=== PATIENT | female | born 1970 | race Caucasian/White ===

== ENCOUNTER → 2016-10-06 | Outpatient (CLI) | payer OTHER ==
[~2016-10-06] MED LIST: ACET-1256 PO; ADVIN50/60 INH; ALBUAER2 INH; BENZ100C84 PO; CITA20TA9 PO; FENO1TAB PO; LISI-461 PO; METF-384 PO; MONT1TAB3 PO; NATE1TAB PO; PRT/20 PO; SYN125 PO; TIOTCAP INH; ZNTT/150 PO; ZTHM250 PO
--- NOTE | 2016-10-07 08:56 | PAP/PSG TECHNICIAN REPORT ---
[facility] Learning Operations Specialist Polysomnogram Report Study name: None Report date: 10/07/2016 Study date: 10/06/2016 Referring Physician: Rajinder KNIGHT M.D. Name: KEKE HUBBARD Interpreting Physician: Halina Knight M.D. Date of : 1970 Learning Operations Specialist: Tyron Rosario RPSGT. Sex: Female Age: 46 StudyType: PSG Weight: 217 lbs 15.25 inches Height: 46 years, Height 5' 6" Neck Circum: BMI: 35.02 Medications: ZANTAC, 150 MG, PRINIVIL 10 MG, SINGULAIR 10 MG, GLUCOPHAGE 1000 MG, ADVAIR DISKUS, VENTOLIN HFA 108 90 BASE, LEVOXYL 125 MCG, VESICARE 10 MG, LOFIBRA 160 MG, CELEXA 20 MG, PROTONIX 40 MG, FLEXERIL 10 MG, ZITHROMAX 250 MG, DELTASONE 20 MG Patient History PATIENT HAS HISTORY OF WITNESSED APNEAS, LOUD SNORING, MORNING HEADACHES AND NOCTURIA. ALSO, HISTORY OF EXCESSIVE DAYTIME SLEEPINESS. SHE IS HERE TODAY FOR AN EVALUATION FOR SHAINA. ESS = 15 RM 4 Parameters Monitored NPSG: E1-M2, E2-M1, Fp1-M2, Fp2-M1, F3-M2, F4-M2, F4-M1, C3-M2, C4-M2, C4-M1, O1-M2, O2-M2, O2-M1, T3-M2, T4-M1, P3-M2, P4-M1, CHIN1, CHIN2, HR, EKG, Legs, PFLOW, SNOR, FLOW, CFLOW, Tidal Volume, THOR, ABDO, SpO2, PLTH, CPRESS, ETCO2 Wave, ETCO2, pH Sleep Architecture Sleep Stages Time at Lights Off 9:56:47 PM STAGES Time (min.) TST (%) Time at Lights On 5:01:47 AM Wake 102.5 -- Total Recording Time (TRT) 425.50 min. N1 30.5 9 Total Sleep Period (TSP) 385.0 min. N2 275.0 85 Total Sleep Time (TST) 322.5min. N3 0.0 0 Awake Time 103.0 min. REM 17.0 5 Wake after Sleep Onset 65.0 min. Sleep Efficiency (SE) 76 % Sleep Onset Latency (VLAD) 37.5 min. Number of Stage 1 Shifts None Awakenings 25 Stage Changes 95 Number of REM periods 2 REM 17.0 5 REM Latency 129.0 min. NREM 305.5 95 Body Position Analysis Supine Right Left Side Prone Vertical Total Sleep Time (min.) 63.1 303.3 0.0 303.28 0.0 0.0 Total Sleep Time (%) 6% 94% 0% 94 0% N/A% Total Sleep Time REM (min.) 0.0 17.0 0.0 None 0.0 0.0 Total Sleep Time NREM (min.) 19.2 286.3 0.0 None 0.0 0.0 Intermittent Wake (min.) 43.9 58.6 0.0 None 0.0 0.0 Total Sleep Period (%) 7% None None None None None Arousals Myoclonus (PLM) * Events Count Index Events Count Index Spontaneous 64 12 Events Awake (PLMW) 220 128.8 Respiratory 141 26.6 Events Asleep w/ Arousal (PLMA) 82 15.3 PLM 78 15 Events Asleep w/o Arousal (PLMS) 476 88.6 Snoring 16 3 Total Asleep 558 103.8 Total 298 55 Total 778 110 Respiratory Analysis * CA OA MA CH H RERA Total Count 0 0 0 0 167 46 167 Index 0.0 0.0 0.0 0 31.1 9 39.6 Mean Duration 0.0 0.0 0.0 0.00 17.8 14.3 17.1 Longest Duration 0.0 0.0 0.0 0.00 0.0 20.1 42.4 Respiratory Event Summary Total Supine ~Supine Right Left Prone REM NREM Apneas Count 0 0 0 0 N/A N/A 0 0 Index 0.0 0 0 0.0 N/A N/A 0 0 Hypopneas (4% Desat) Count 167 1 166 166 N/A N/A 10 157 Index 31.1 3.1 33 32.8 N/A N/A 35.3 30.8 Apneas & All Hypopneas Count 167 1 166 166 N/A N/A 10 157 Index 31.1 3 33 33 N/A N/A 35.3 30.8 Respiratory Events (Traveling Construction Superintendent+All Hyp+RERA) Count 167 2 211 211 N/A N/A 10 157 Index 39.6 6 42 41.7 N/A N/A 35.3 39.9 Respiratory Related Arousal Count 141 2 142 142 N/A N/A 4 139 Index 26.6 3 28 28 N/A N/A 14 27 Snoring Analysis Supine Right Left Prone REM NREM Total Snore duration 18.3 min Snores count 20 831 N/A N/A 35 816 851 Snore mean duration 1.3 Sec Snores index 62 164 N/A N/A 123.5 160.3 158.3 TST with snoring (%) 5.7% Desaturation Event Summary: Minimum %SpO2 Event Count Mean/Min/Max Duration(sec.) Desaturation Index % Time In Bed > 90 162 25.6 / 7.0 / 59.8 29.7 79.3 86 - 90 18 35.2 / 12.8 / 61.2 13.6 19.2 81 - 85 0 N/A 0.0 1.5 76 - 80 0 N/A 0.0 0.0 71 - 75 0 N/A 0.0 0.0 66 - 70 0 N/A 0.0 0.0 61 - 65 0 N/A 0.0 0.0 56 - 60 0 N/A 0.0 0.0 51 - 55 0 N/A 0.0 0.0 < 50 0 N/A 0.0 0.0 Total REM NREM Awake <50% 0.0 min. 0.0 min. 0.0 min. 0.0 min. 51 - 60% 0.0 min. 0.0 min. 0.0 min. 0.0 min. 61 - 70% 0.0 min. 0.0 min. 0.0 min. 0.0 min. 71 - 80% 0.0 min. 0.0 min. 0.0 min. 0.0 min. 81 - 90% 85.7 min. 14.4 min. 68.6 min. 2.7 min. 91 - 100% 327.8 min. 2.6 min. 236.9 min. 88.3 min. Average 92 87 92 93 Minimum SpO2 81 81 86 81 Desaturation Event Index 23.7 35.3 30.0 4.7 # Desat. Events below 89% 58 10 46 2 Time(%) with Saturation below 89% 6.2 2.7 3.4 0.1 Time(min.) with Saturation below 89% 25.5 11.0 14.0 0.5 Time (mins) REM (mins) NREM (mins) % of TST SpO2 Below 90% 146 10 N136 14.7 SpO2 Below 88% 30 0 0 4 Heart Rate Analysis Min (bpm) Max (bpm) Average (bpm) Awake 69 113 96 NREM 63 107 91 REM 59 104 88 Overall 59 107 91 Supplemental O2 Values Minimum O2 level: None Value Start Time End Time Learning Operations Specialist Comments Mrs. Hubbard slept in the right and supine positions. No cardiac arrhythmia noted. Leg movements noted. No bruxism noted. Snoring was noted and scored as a 3 on a scale of 1 through 5. (0=no snoring, 5=snoring loud enough to be heard through a closed door or down the jerome way) Mrs. Hubbard awoke to use the restroom 3 times during the night. Mrs. Hubbard stated I did not sleep as well as I do when I am in my own bed. The final report will be interpreted and signed by a sleep physician. The completed physician report will then be placed in the patient medical record. Therapy (cm H2O) 0 TIB (min.) 425.0 TST (min.) 322.5 Sleep Onset (min.) 37.5 REM Onset From Sleep (min.) 129.0 Sleep Efficiency % 76 Wakefulness (%) 24 Wakefulness (min.) 103.0 NREM 1 (%) 9 NREM 1 (min.) 30.5 NREM 2 (%) 85 NREM 2 (min.) 275.0 NREM 3 (%) 0 NREM 3 (min.) 0.0 REM (%) 5 REM (min.) 17.0 # Arousals 298 Arousal Index 55 # Snore 851 Snore Index 158.3 AHI 31.1 AHI Supine 3 AHI Non-Supine 33 NREM AHI 30.8 REM AHI 35.3 RDI 39.6 # Obstructive Apnea 0 # Central Apnea 0 # Mixed Apnea 0 # Hypopneas 167 RERAs 46 Total Respiratory Events 213 Time Below SpO2 89% (min.) 25.0 Mean NREM SpO2 (%) 92 Mean REM SpO2 (%) 87 Mean Sleep SpO2 (%) 92 Min NREM SpO2 (%) 86 Min REM SpO2 (%) 81 Position Supine (min.) 63.1 Position Non-supine (min.) 303.3 LM Index Sleep 103.8 LM Index NREM 107.0 LM Index REM 45.9 Mean Heart Rate (bpm) 91 Min Heart Rate (bpm) 59
--- NOTE | 2016-10-14 14:00 | POLYSOMNOGRAPH REPORT ---
REFERRING PERSON: Dr. Chante Knight. COIL WINDER: Tyron Rosario. Ms. Santacruz is a 46-year-old female sent for baseline sleep study. She has a history of witnessed apneas, loud snoring, morning headaches and nocturia. She has some excessive daytime sleepiness as well. Her [place] sleepiness scale score on the evening of this study is 15. BMI is 35.02. Following the technical and digital specifications of the [place] [employer] (AASM) a standard diagnostic polysomnogram was performed monitoring EEG, EOG, EMG (chin and leg deviations), oxygen saturation, body position, digital video, respiratory effort and airflow. The sleep Stage and event scoring was based on the AASM Manual for the Scoring of Sleep and Associated Events 2007 edition. Apneas are defined as a drop in the peak thermal sensor excursion by >90% of baseline for at least 10 seconds. Hypopneas were scored using the 4% oxygen desaturation rule (4A-[employer]) and a decrease in the nasal pressure excursions by >30% of baseline for at least 10 seconds. Respiratory effort-related arousal (RERA's) is defined as a sequence of breaths lasting at least 10 seconds characterized by increasing respiratory effort or flattening of the nasal pressure waveform leading to an arousal from sleep when the sequence of breaths does not meet criteria for an apnea or hypopnea. Apnea Hypopnea index (AHI) is defined as the number of apneas and hypopneas occurring in an hour of sleep. Respiratory disturbance index (RDI) is defined as the number of apneas, hypopneas, and RERA's occurring in an hour of sleep. Ms. Santacruz's total sleep period time was 385 minutes. Total sleep time was 322.5 minutes. Sleep efficiency was 76%. Latency to sleep onset was 37.5 minutes with wake after sleep onset of 65 minutes. Total non-REM sleep time was 305.5 minutes. She spent 9% of that time in N1 sleep, 85% in N2 sleep and no time in N3 sleep. This is abnormal non-REM sleep architecture with a propensity for superficial sleep. REM latency was 129 minutes. Total REM sleep time was 17 minutes or 5% of total sleep time. There were 298 arousals from sleep. 64 of these arousals were spontaneous, 141 due to respiratory events, 78 due to periodic limb movements of sleep and 16 were due to snoring. There were 558 periodic limb movements noted on this test. Limb movement index was 103.8 with limb movement with arousal index of 15.3. There were no central, obstructive or mixed apneas on this test. However, there were 167 hypopnea and 46 RERA. Apnea-hypopnea index was 31.1 and RDI was 39.6. This is consistent with severe sleep apnea. 851 one snoring events were recorded. Total sleep time with snoring was 5.7%. Mean saturation was 92% with desaturations to 81%. Saturations were less than 89% for 25.5 minutes of recorded time. There was no cardiac ectopy noted on this study. Ms. Santacruz's heart rate ranged from a low of 59 beats per minute to a high of 107 beats per minute. IMPRESSION AND PLAN: 46-year-old female with evidence of severe sleep apnea and significant nocturnal hypoxemia on this sleep study. 1. This patient would likely benefit from positive airway pressure therapy. She should return to sleep lab for a full night titration and then based on those results be started on equipment at home. A download from her machine can be reviewed in 1 month both to check compliance as well as AHI and further pressure adjustments can occur at that time. This should treat the patient's apnea, hypoxemia as well as some snoring. 2. Should this patient be unwilling or unable to tolerate CPAP therapy, she could be referred to ear, nose and throat or oral surgery/dental medicine (if appropriate) to discuss alternative treatments for sleep disorder breathing.
== END | disposition home or self-care (01) ==
LOC: C.NEUR 21:00
PROVIDERS: ATTEND Family Medicine
DX: G47.10 Hypersomnia, unspecified (principal); R06.83 Snoring; G47.33 Obstructive sleep apnea (adult) (pediatric)

== ENCOUNTER → 2017-06-27 | Day surgery (SDC) | payer OTHER ==
[2017-06-19 16:01] VITALS: Ht 165.1 cm; Wt 100.9 kg
[~2017-06-27] VITALS: Ht 165.1 cm; Wt 100.9 kg
[~2017-06-27] MED LIST changes: -ALBUAER2 INH; +ATOR-22 PO; -BENZ100C84 PO; +CYCL10TA6 PO; +FENTANYL CITRATE INJ 50 MCG/1 ML 2 ML VIAL ONE; +GLIM4TAB PO; +LEVO150T9 PO; +LIDOCAINE HCL 2% 2 ML VIAL (20MG/ML) ONE; +ONDANSETRON INJ 2 MG/ML 2 ML VIAL IV PRN; +PANT40TA PO; +PROPOFOL IV EMULSION 10 MG/ML 20 ML VIAL ONE; -PRT/20 PO; +RANI150T85 PO; +SPRIN/30 INH; -SYN125 PO; -TIOTCAP INH; +VNTHFA/IN INH; -ZNTT/150 PO; -ZTHM250 PO
--- NOTE | 2017-06-27 08:40 | Endo History and Physical ---
History & Physical Date of Service: June 27, 2017. Chief Complaint: Abdominal pain Referring Physician: History of Present Illness Patient with intermittent right upper quadrant discomfort. She presents for upper endoscopy today. There is no difficulties with swallowing or pain with swallowing. Past Medical History Diabetes, Endocrine Disorder, Asthma, Reflux, Hypertension, COPD, Thyroid Disease Past Surgical History Hx Cardiac Surgery: No Hx Internal Defibrillator: No Hx Pacemaker: No Hx Abdominal Surgery: Yes (TUBAL) Hx of Implantable Prosthesis: No Hx Post-Op Nausea and Vomiting: No Hx Cancer Surgery: No Hx Thoracic Surgery: No Hx Orthopedic: Yes (carpal tunnel release, R ARTH) Hx Urinary Tract Surgery: No Social History Smoking Status: Former Smoker Hx Substance Use: No Hx Alcohol Use: No Allergies Coded Allergies: Sulfa Antibiotics (Verified Allergy, Unknown, RASH,SWELLING, 06/19/17) Current Medications Reported Home Medications Medications Dose Route/Sig Max Daily Dose Days Date Category Dose Instructions Ventolin Hfa (Albuterol) 200 Puffs/95262 Mcg Aers 2-4 Puffs INH Q4 PRN 06/19/17 Reported Spiriva Handihaler (Tiotropium [place]) 30 Puff/540 Mcg Aerp 1 Cap INH DAILY 30 06/19/17 Reported Amaryl (Glimepiride) 4 Mg Tab 1 Tab PO DAILY 30 06/19/17 Reported Flexeril (Cyclobenzaprine Hcl) 10 Mg Tab 1 Tab PO TID 30 06/19/17 Reported Lipitor (Atorvastatin Calcium) 20 Mg Tab 1 Tab PO DAILY 30 06/19/17 Reported Levothyroxine Sodium 150 Mcg Tab 1 Tab PO DAILY 30 06/19/17 Reported Protonix (Pantoprazole Sodium) 40 Mg Tab 1 Tab PO BID 30 06/19/17 Reported Celexa (Citalopram Hydrobromide) 20 Mg Tab 1 Tab PO DAILY 30 05/04/15 Reported Tylenol (Acetaminophen) 500 Mg Tab 1,000 Mg PO DIRECTED 05/04/15 Reported Zantac (Ranitidine HCl) 150 Mg Tab 150 Mg PO BID 05/04/15 Reported Nateglinide 120 Mg Tab 120 Mg PO AC 10/22/13 Reported Glucophage (Metformin Hcl) 1,000 Mg Tab 1,000 Mg PO BIDM 11/10/12 Reported Zestril (Lisinopril) 10 Mg Tab 10 Mg PO DAILY 11/10/12 Reported Advair Diskus 500/50 60 Dose (Fluticasone Prop/Salmeterol) 1 Ea Aerp 1 Puff INH BID 06/24/12 Reported Singulair (Montelukast Sodium) 10 Mg Tab 10 Mg PO QPM 06/24/12 Reported Tricor (Fenofibrate) 160 Mg Tab 160 Mg PO DAILY 06/24/12 Reported take with meal Vital Signs Weight (Kilograms): 100.91 Height (Feet): 5 Height (Inches): 5 Physical Exam General Appearance: no apparent distress Respiratory/Chest: Auscultation: deminished air movement Cardiovascular: Heart Auscultation: RRR Abdomen: Inspection & Palpation: soft Assessment and Plan Upper endoscopy for evaluation of intermittent right upper quadrant discomfort. We have discussed the risks to include bleeding, infection, perforation pain and need for follow-up studies.
[2017-06-27 09:02] VITALS: PULSE 79; O2SAT 94
[2017-06-27 09:12] VITALS: PULSE 81; O2SAT 95
--- NOTE | 2017-06-27 09:39 | Discharge Instructions ---
Endoscopy Patient Instructions Date / Procedure(s) Performed June 27, 2017. EGD Allergy Information Coded Allergies: Sulfa Antibiotics (Verified Allergy, Unknown, RASH,SWELLING, 06/19/17) Discharge Date / Findings June 27, 2017. Normal esophagus Normal Stomach Normal Duodenum Medication Instructions Stopped Medication(s): last dose Metformin Friday Restart Stopped Medication(s): Reported Home Medications Medications Dose Route/Sig Max Daily Dose Days Date Category Dose Instructions Ventolin Hfa (Albuterol) 200 Puffs/16675 Mcg Aers 2-4 Puffs INH Q4 PRN 06/19/17 Reported Spiriva Handihaler (Tiotropium [place]) 30 Puff/540 Mcg Aerp 1 Cap INH DAILY 30 06/19/17 Reported Amaryl (Glimepiride) 4 Mg Tab 1 Tab PO DAILY 30 06/19/17 Reported Flexeril (Cyclobenzaprine Hcl) 10 Mg Tab 1 Tab PO TID 30 06/19/17 Reported Lipitor (Atorvastatin Calcium) 20 Mg Tab 1 Tab PO DAILY 30 06/19/17 Reported Levothyroxine Sodium 150 Mcg Tab 1 Tab PO DAILY 30 06/19/17 Reported Protonix (Pantoprazole Sodium) 40 Mg Tab 1 Tab PO BID 30 06/19/17 Reported Celexa (Citalopram Hydrobromide) 20 Mg Tab 1 Tab PO DAILY 30 05/04/15 Reported Tylenol (Acetaminophen) 500 Mg Tab 1,000 Mg PO DIRECTED 05/04/15 Reported Zantac (Ranitidine HCl) 150 Mg Tab 150 Mg PO BID 05/04/15 Reported Nateglinide 120 Mg Tab 120 Mg PO AC 10/22/13 Reported Glucophage (Metformin Hcl) 1,000 Mg Tab 1,000 Mg PO BIDM 11/10/12 Reported Zestril (Lisinopril) 10 Mg Tab 10 Mg PO DAILY 11/10/12 Reported Advair Diskus 500/50 60 Dose (Fluticasone Prop/Salmeterol) 1 Ea Aerp 1 Puff INH BID 06/24/12 Reported Singulair (Montelukast Sodium) 10 Mg Tab 10 Mg PO QPM 06/24/12 Reported Tricor (Fenofibrate) 160 Mg Tab 160 Mg PO DAILY 06/24/12 Reported take with meal Provider Instructions Activity Restrictions - No exercising or heavy lifting for 24 hours. - Do not drink alcohol the day of the procedure. - Do not drive a car or operate machinery until the day after the procedure. - Do not make any important decisions or sign important papers in 24 hours after the procedure. Following Day: - Return to full activity which may include returning to work/school. Diet Start your diet with liquids and light foods (jello, soup, juice, toast). Then eat your usual diet if not nauseated. Treatment For Common After Affects For mild abdominal pain, bloating, or excessive gas: - Rest - Eat lightly - Lie on right side Follow-Up Information Follow-up with Dr. Sam Valdovinos to discuss medications No obvious cause of symptoms seen today. Symptoms are related to medication such as metformin or Celexa Anesthesia Information What You Should Know You have had a procedure that required some medicine to reduce anxiety and discomfort. This treatment is called moderate sedation. After receiving the treatment, you may be sleepy, but you will be able to breathe on your own. The effects of the treatment may last for several hours. Follow these instructions along with Activity/Diet recommendations noted above: * Do NOT do anything where dizziness or clumsiness would be dangerous. * Rest quietly at home today, then you can be up and about tomorrow. * Have a responsible person stay with you the rest of today. * You may have had an I.V. today. If so, you may take the dressing off later today. Recommendations Call your doctor if: * Trouble breathing * Continuous vomiting for more than 24 hours * Temperature above 101 degrees * Severe abdominal pain or bloating * Pain not relieved by pain medicine ordered * There is increased drainage or redness from any incision * A large amount of rectal bleeding greater than 2-3 tablespoons. (If you had a polyp/s removed or have hemorrhoids, a small amount of blood - from the rectum is to be expected.) * You have any unanswered questions or concerns. IN THE EVENT OF A SERIOUS EMERGENCY, GO TO THE NEAREST EMERGENCY ROOM Your discharge instructions were prepared by provider Khoa Alejandra. Patient Instructions Signature Page Lauren Santacruz Patient (or Guardian) Signature/Date: I have read and understand the instructions given to me by my caregivers. Caregiver/RN/Doctor Signature/Date: The above-named patient and/or guardian has received patient instructions on this date. + Original Patient Signature Page (only) stays with chart. Please make copy for patient.
--- NOTE | 2017-06-27 09:41 | GI REPORT ---
Patient Name: Lauren Santacruz Procedure Date: 06/27/2017 9:23 AM Date of : 1970 Admit Type: Outpatient Age: 47 Gender: Female Attending MD: Khoa Alejandra DO Procedure: Upper GI endoscopy Providers: Khoa Alejandra DO Referring MD: Joan Prater NP Indications: Epigastric abdominal pain, Abdominal pain in the right upper quadrant Medicines: Monitored Anesthesia Care Complications: No immediate complications. Estimated blood loss: Minimal. Estimated Blood Loss: Estimated blood loss was minimal. Procedure: Pre-Anesthesia Assessment: - Prior to the procedure, a History and Physical was performed, and patient medications, allergies and sensitivities were reviewed. The patient's tolerance of previous anesthesia was reviewed. - The risks and benefits of the procedure and the sedation options and risks were discussed with the patient. All questions were answered and informed consent was obtained. - Patient identification and proposed procedure were verified prior to the procedure by the physician, the nurse and the electrical sign wirer. The procedure was verified in the procedure room. - Pre-procedure physical examination revealed no contraindications to sedation. - ASA Grade Assessment: III - A patient with severe systemic disease. - After reviewing the risks and benefits, the patient was deemed in satisfactory condition to undergo the procedure. - The anesthesia plan was to use monitored anesthesia care (MAC). - Immediately prior to administration of medications, the patient was re-assessed for adequacy to receive sedatives. - The heart rate, respiratory rate, oxygen saturations, blood pressure, adequacy of pulmonary ventilation, and response to care were monitored throughout the procedure. - The physical status of the patient was re-assessed after the procedure. After obtaining informed consent, the endoscope was passed under direct vision. Throughout the procedure, the patient's blood pressure, pulse, and oxygen saturations were monitored continuously. The scope was introduced through the mouth, and advanced to the third part of duodenum. The upper GI endoscopy was accomplished without difficulty. The patient tolerated the procedure well. Findings: The examined esophagus was normal. The Z-line was regular and was found 37 cm from the incisors. The entire examined stomach was normal. The examined duodenum was normal. Biopsies for histology were taken with a cold forceps for evaluation of celiac disease. Estimated blood loss was minimal. Impression: - Normal esophagus. - Z-line regular, 37 cm from the incisors. - Normal stomach. - Normal examined duodenum. Biopsied. Recommendation: - Discharge patient to home (ambulatory). - Advance diet as tolerated today. - Await pathology results. - Symptoms could be related to a medication such as Celexa or metformin. Khoa Alejandra D.O. Khoa Alejandra, 06/27/2017 9:41:17 AM This report has been signed electronically. Note Initiated On: 06/27/2017 9:23 AM Number of Addenda: 0 I attest to the content of the Intraoperative Record and orders documented therein, exceptions below {[id number]}
--- NOTE | 2017-06-27 09:53 | Anesthesiology Progress Note ---
Anesthesia Post Op Note Date & Time June 27, 2017 at 09:53 Vital Signs Pain Intensity: 2 Vital Signs Past 12 Hours Date Time Temp Pulse Resp B/P (MAP) Pulse Ox O2 Delivery O2 Flow Rate FiO2 06/27/17 09:40 82 16 119/71 (87) 97 Room Air 06/27/17 09:12 81 16 95 Room Air 06/27/17 09:02 79 16 94 Room Air 06/27/17 08:40 37.1 80 20 114/70 (85) 96 Room Air Notes Mental Status: alert / awake / arousable, participated in evaluation Pt Amnestic to Procedure: Yes Nausea / Vomiting: adequately controlled Pain: adequately controlled Airway Patency, RR, SpO2: stable & adequate BP & HR: stable & adequate Hydration State: stable & adequate Anesthetic Complications: no major complications apparent
[2017-06-27 10:10] VITALS: BP 125/65; PULSE 83; O2SAT 94
== END | disposition home or self-care (01) ==
LOC: C.GI 08:06
PROVIDERS: ATTEND Internal Medicine Gastroenterology
DX: R10.11 Right upper quadrant pain (principal); R10.13 Epigastric pain; E11.9 Type 2 diabetes mellitus without complications; K21.9 Gastro-esophageal reflux disease without esophagitis; I10 Essential (primary) hypertension; J44.9 Chronic obstructive pulmonary disease, unspecified; Z87.891 Personal history of nicotine dependence; Z88.2 Allergy status to sulfonamides; Z79.84 Long term (current) use of oral hypoglycemic drugs; G47.33 Obstructive sleep apnea (adult) (pediatric); E78.5 Hyperlipidemia, unspecified

== ENCOUNTER 2018-05-10 19:04 | Inpatient (IN) ==
[2018-05-10] MEDS ORDERED: ALBUTEROL 0.083% NEBU SOLN 3 ML VIAL NEB STA ×2 (19:15→20:43)
--- NOTE | 2018-05-10 19:41 | XRay Report ---
XR chest 1V portable CLINICAL HISTORY: Sepsis COMPARISON STUDY: 05/04/2015 FINDINGS: The heart is normal in size. There is radiographic evidence of pulmonary emphysema. There a re bilateral reticulonodular airspace opacities, most pronounced within the right midlung zone. The f indings are likely infectious/inflammatory given history of sepsis. Clinical and radiographic follow- up is recommended. IMPRESSION: 1. Pulmonary emphysema 2. Interval development of bilateral reticulonodular opacities, likely infectious/inflammatory given the history of sepsis. Clinical and radiographic follow-up is recommended. Electronically signed by: Mahendra Patten M.D. 05/10/2018 7:39 PM
[2018-05-10 19:42] LABS: Hematocrit (blood only) 32.2 % (37-47); Hemoglobin 10.1 g/dL (12.0-16.0); Mean Corpuscular Hgb Conc 31.4 g/dL (32-36); Mean Corpuscular Volume 76.8 fL (80-100); Mean Platelet Volume 10.5 fL (7.4-10.4); Platelet Count 379 K/uL (130-400); RDW Coefficient of Variation 17.2 % (11.5-14.5); RDW Standard Deviation 49.1 fL (36.4-46.3); Red Blood Count 4.19 M/uL (4.2-5.4); White Blood Count 26.26 K/uL (4.8-10.8)
[2018-05-10] MEDS ORDERED: PIPERACILL/TAZOBAC CONSULT ACTIVE PRN (19:49)
[2018-05-10] MEDS ORDERED: PIPERACILLIN/TAZOBACTAM 4.5 GM/120 ML BAG IV ONE (19:49)
[2018-05-10] MEDS ORDERED: SODIUM CHLORIDE 0.9% 1000ML 1,000 ML IV ONE (19:51)
[2018-05-10 19:53] LABS: INR 1.1 (0.9-1.1); Partial Thromboplastin Ratio 0.9; Partial Thromboplastin Time 24.7 Seconds (21.0-31.0); Prothrombin Time 10.9 Seconds (9.0-12.0)
[2018-05-10 20:00] LABS: Alanine Aminotransferase 25 U/L (12-78); Albumin Level 3.2 gm/dl (3.4-5.0); Aspartate Aminotransferase 18 U/L (15-37); BUN Creatinine Ratio 14.4 (10-20); Blood Urea Nitrogen 14 mg/dl (7-18); Calcium 8.5 mg/dl (8.5-10.1); Carbon Dioxide 26 mmol/L (21-32); Chloride 102 mmol/L (98-107); Creatinine Clr Calc Pharmacy 82.5 ml/min; Est GFR (African American) 82.1; Est GFR (Non-African American) 70.8; Glucose 214 mg/dl (70-99); Potassium 3.7 mmol/L (3.5-5.1); Sodium 135 mmol/L (136-145)
[2018-05-10 20:01] LABS: Basophils # (auto) 0.02 K/uL (0-0.2); Basophils % (auto) 0.1 %; Eosinophils # (auto) 0.07 K/uL (0-0.5); Eosinophils % (auto) 0.3 %; Immature Granulocytes # (auto) 0.12 K/uL (0.00-0.02); Immature Granulocytes % (auto) 0.5 %; Lymphocytes # (auto) 1.93 K/uL (1.2-3.4); Lymphocytes % (auto) 7.3 %; Monocytes # (auto) 2.99 K/uL (0.11-0.59); Monocytes % (auto) 11.4 %; Neutrophils # (auto) 21.13 K/uL (1.4-6.5); Neutrophils % (auto) 80.4 %
[2018-05-10 20:05] LABS: Albumin Globulin Ratio 0.9 (0.9-2); Alkaline Phosphatase 63 U/L (45-117); Bilirubin,Total 0.4 mg/dl (0.2-1); Globulin 3.7 gm/dl (2.5-4.0); Total Protein 6.9 gm/dl (6.4-8.2); Troponin I < 0.015 ng/ml (0-0.045)
[2018-05-10] MEDS ORDERED: ACETAMINOPHEN 325 MG TAB PO STA (20:43)
[2018-05-10] MEDS ORDERED: ALBUTEROL HFA 8 GM INHALER INH PRN (22:51)
[2018-05-10] MEDS ORDERED: NITROGLYCERIN SL 0.4 MG/TAB TAB SL PRN (22:51)
[2018-05-10] MEDS ORDERED: ONDANSETRON INJ 2 MG/ML 2 ML VIAL IV PRN (22:51)
[2018-05-10] MEDS ORDERED: ACETAMINOPHEN 325 MG TAB PO PRN (22:51)
[2018-05-10] MEDS ORDERED: CYCLOBENZAPRINE HCL 10 MG TAB PO PRN (22:51)
[2018-05-10] MEDS ORDERED: POLYETHYLENE (MIRALAX) 17 GM PACK PO PRN (22:51)
[2018-05-10] MEDS ORDERED: PHARMACY GLYCEMIC MGMT CONSULT PRN (23:06)
[2018-05-10] MEDS ORDERED: INSULIN GLARGINE SOLOSTAR 100 UNITS/ML 3 ML PEN SC SCH (23:15)
[2018-05-10] MEDS ORDERED: cefTRIAXone SODIUM 1,000 MG in DEXTROSE 5% 50 ML IV SCH (23:30)
[2018-05-10] MEDS: FENOFIBRATE~ORDER AWAITING ACTION SCH (23:43)
[2018-05-10] MEDS: SODIUM CHLORIDE 0.9% 1000ML 1,000 ML IV SCH (23:43)
[2018-05-10] MEDS: DOXYCYCLINE HYCLATE 100 MG in DEXTROSE 5% 100 ML IV SCH (23:43)
[2018-05-10] MEDS: methylPREDNISolone 40 MG in SYRINGE 0 ML IV SCH (23:45)
[2018-05-10] MEDS: INSULIN ASPART 100 UNITS/ML 3 ML PEN SC SCH (23:48)
--- NOTE | 2018-05-11 01:02 | Emergency Department Note ---
Entered by Jose Armando Leonardo acting as a scribe for Khoa Ruth MD History of Present Illness General Chief complaint: Shortness of Breath/Dyspnea Stated complaint: SOB Time Seen by Provider: 05/10/18 19:05 Source: patient Limitations: no limitations History of Present Illness Provider complaint: Pneumonia/SOB Onset (ago): day(s) Location: chest Pain Consistency: + other (worsening) Quality: + other (SOB/pneumonia) Exacerbated By: + other (Chest pain worsened by breathing) Associated symptoms: + chest pain Treatments prior to arrival: none The patient is a 48 year old female who presents to the Emergency Room with complaints of worsening shortness of breath. The patient states that she began to develop diffuse body aches yesterday and then went to [facility] today. [facility] diagnosed the patient with a right-sided pneumonia and discharged her home with an antibiotic prescription. She did not fill the antibiotic as her pharmacy was closed today. She also complains of a cough that is producing yellow and clear mucous. She does note a history of COPD and asthma and did use her home breathing treatments today. She also received 3 DuoNeb treatments and 125 of SoluMedrol via EMS prior to arrival. The patient does add that she has pain in her right ribs/breast that is worsened by coughing. She has no swelling in her legs. The patient denies any history of blood thinner use or previous blood clots. Home Medications Home Medications Medication Instructions Recorded Confirmed Type albuterol sulfate [Ventolin HFA] 2 - 4 puff INHALATION Q4H PRN 05/10/18 05/10/18 History atorvastatin 20 mg PO DAILY 05/10/18 05/10/18 History citalopram 20 mg PO DAILY 05/10/18 05/10/18 History cyclobenzaprine 10 mg PO DAILY PRN 05/10/18 05/10/18 History dicyclomine 10 mg PO BID 05/10/18 05/10/18 History fenofibrate 160 mg PO QPM 05/10/18 05/10/18 History fluticasone-salmeterol [Advair 1 puff INHALATION BID 05/10/18 05/10/18 History Diskus] glimepiride 4 mg PO QAM 05/10/18 05/10/18 History levothyroxine 137 mcg PO QAM 05/10/18 05/10/18 History lisinopril 10 mg PO QAM 05/10/18 05/10/18 History metformin 1,000 mg PO BID 05/10/18 05/10/18 History montelukast 10 mg PO QPM 05/10/18 05/10/18 History nateglinide 120 mg PO TIDM 05/10/18 05/10/18 History pantoprazole 40 mg PO BID 05/10/18 05/10/18 History ranitidine HCl 150 mg PO BID 05/10/18 05/10/18 History tiotropium bromide [Spiriva 2 puff INHALATION QAM 05/10/18 05/10/18 History Respimat] Allergies Allergy/AdvReac Type Severity Reaction Status Date / Time Sulfa (Sulfonamide Allergy Intermediate RASH,SWELLI Verified 05/10/18 19:45 Antibiotics) NG Past Med/Surg History Medical History COPD (chronic obstructive pulmonary disease) (Chronic) GERD (gastroesophageal reflux disease) (Chronic) HLD (hyperlipidemia) (Chronic) HTN (hypertension) (Chronic) Hypothyroidism (Chronic) DM2 (diabetes mellitus, type 2) (Chronic) Surgical History H/O tubal ligation (Chronic) History of carpal tunnel surgery of right wrist (Chronic) H/O thyroidectomy (Chronic) H/O colonoscopy (Chronic) "polyps x2, hyperplastic tissue repeat at age 50" Social History Preferred Language: Tunisian Communication Ability: Effective Beliefs That Will Affect Care: None Current Living Situation: Spouse Current Living Situation Comment: House Other Information That Helps Us Care for You: No Feels Safe at Home: Yes Safety Concerns: Feels Safe At This Time Smoking Status: Former smoker Hx Alcohol Use: No Hx Substance Use: No Review of Systems See HPI for pertinent positives & negatives. and A total of 10 systems reviewed and were otherwise negative Physical Exam Vital Signs Vital Signs - 24 hr 05/10/18 19:07 05/10/18 19:15 05/10/18 19:24 Temperature Temperature Source Sepsis Recent Fever Within 48 Hours Sepsis New/Unexplained Change in Mental Status Pulse Rate 115 H 114 H 113 H Pulse Rate [Apical] Pulse Rate from SpO2 Sensor 114 H 114 H Pulse Rhythm [Apical] Pulse Strength [Apical] Respiratory Rate 21 14 Respiratory Effort / Characteristics Respiratory Depth Respiratory Pattern Blood Pressure 121/67 Blood Pressure [Left Arm] Blood Pressure Mean 85 Blood Pressure Mean [Left Arm] Blood Pressure Position Blood Pressure Position [Left Arm] Pulse Oximetry 95 95 94 Oxygen Delivery Method Nasal Cannula Nasal Cannula Room Air Oxygen Flow Rate 2 2 05/10/18 19:26 05/10/18 19:30 05/10/18 19:35 Temperature 37.8 C H Temperature Source Oral Sepsis Recent Fever Within 48 Hours Yes Sepsis New/Unexplained Change in Mental Status No Pulse Rate 118 H 116 H Pulse Rate [Apical] 119 H Pulse Rate from SpO2 Sensor 116 H Pulse Rhythm [Apical] Pulse Strength [Apical] Respiratory Rate 24 18 25 H Respiratory Effort / Characteristics Short of Breath Respiratory Depth Normal Respiratory Pattern Regular Blood Pressure 121/67 Blood Pressure [Left Arm] Blood Pressure Mean 85 Blood Pressure Mean [Left Arm] Blood Pressure Position Sitting Blood Pressure Position [Left Arm] Pulse Oximetry 94 98 94 Oxygen Delivery Method Room Air Nasal Cannula Nasal Cannula Oxygen Flow Rate 2 2 05/10/18 19:39 05/10/18 19:45 05/10/18 19:46 Temperature Temperature Source Sepsis Recent Fever Within 48 Hours Sepsis New/Unexplained Change in Mental Status Pulse Rate 114 H 111 H 112 H Pulse Rate [Apical] Pulse Rate from SpO2 Sensor 114 H 111 H 110 H Pulse Rhythm [Apical] Pulse Strength [Apical] Respiratory Rate 19 22 Respiratory Effort / Characteristics Respiratory Depth Respiratory Pattern Blood Pressure 126/73 122/69 Blood Pressure [Left Arm] Blood Pressure Mean 90 86 Blood Pressure Mean [Left Arm] Blood Pressure Position Blood Pressure Position [Left Arm] Pulse Oximetry 95 94 93 Oxygen Delivery Method Nasal Cannula Nasal Cannula Nasal Cannula Oxygen Flow Rate 2 2 2 05/10/18 20:00 05/10/18 20:01 05/10/18 20:15 Temperature Temperature Source Sepsis Recent Fever Within 48 Hours Sepsis New/Unexplained Change in Mental Status Pulse Rate 115 H 114 H 119 H Pulse Rate [Apical] Pulse Rate from SpO2 Sensor 114 H 114 H 118 H Pulse Rhythm [Apical] Pulse Strength [Apical] Respiratory Rate 24 23 24 Respiratory Effort / Characteristics Respiratory Depth Respiratory Pattern Blood Pressure 134/79 Blood Pressure [Left Arm] Blood Pressure Mean 97 Blood Pressure Mean [Left Arm] Blood Pressure Position Blood Pressure Position [Left Arm] Pulse Oximetry 94 94 94 Oxygen Delivery Method Nasal Cannula Nasal Cannula Nasal Cannula Oxygen Flow Rate 2 2 2 05/10/18 20:16 05/10/18 20:30 05/10/18 20:45 Temperature Temperature Source Sepsis Recent Fever Within 48 Hours Sepsis New/Unexplained Change in Mental Status Pulse Rate 119 H 115 H 112 H Pulse Rate [Apical] Pulse Rate from SpO2 Sensor 119 H 116 H 112 H Pulse Rhythm [Apical] Pulse Strength [Apical] Respiratory Rate 25 H 22 20 Respiratory Effort / Characteristics Respiratory Depth Respiratory Pattern Blood Pressure 140/89 Blood Pressure [Left Arm] Blood Pressure Mean 106 Blood Pressure Mean [Left Arm] Blood Pressure Position Blood Pressure Position [Left Arm] Pulse Oximetry 95 95 Oxygen Delivery Method Nasal Cannula Nasal Cannula Oxygen Flow Rate 2 2 05/10/18 20:46 05/10/18 20:47 05/10/18 20:53 Temperature Temperature Source Sepsis Recent Fever Within 48 Hours Sepsis New/Unexplained Change in Mental Status Pulse Rate 113 H 111 H 109 H Pulse Rate [Apical] Pulse Rate from SpO2 Sensor 113 H 111 H 109 H Pulse Rhythm [Apical] Pulse Strength [Apical] Respiratory Rate 25 H 19 21 Respiratory Effort / Characteristics Respiratory Depth Respiratory Pattern Blood Pressure 108/67 Blood Pressure [Left Arm] Blood Pressure Mean 284 80 Blood Pressure Mean [Left Arm] Blood Pressure Position Blood Pressure Position [Left Arm] Pulse Oximetry 96 96 99 Oxygen Delivery Method Nasal Cannula Nasal Cannula Nasal Cannula Oxygen Flow Rate 2 2 2 05/10/18 21:00 05/10/18 21:01 05/10/18 21:25 Temperature Temperature Source Sepsis Recent Fever Within 48 Hours Sepsis New/Unexplained Change in Mental Status Pulse Rate 110 H 115 H 113 H Pulse Rate [Apical] Pulse Rate from SpO2 Sensor 112 H 115 H Pulse Rhythm [Apical] Pulse Strength [Apical] Respiratory Rate 20 17 24 Respiratory Effort / Characteristics Respiratory Depth Respiratory Pattern Blood Pressure 122/88 Blood Pressure [Left Arm] Blood Pressure Mean 99 Blood Pressure Mean [Left Arm] Blood Pressure Position Blood Pressure Position [Left Arm] Pulse Oximetry 99 97 Oxygen Delivery Method Nasal Cannula Nasal Cannula Oxygen Flow Rate 2 2 05/10/18 21:30 05/10/18 21:31 05/10/18 21:45 Temperature Temperature Source Sepsis Recent Fever Within 48 Hours Sepsis New/Unexplained Change in Mental Status Pulse Rate 110 H 111 H 116 H Pulse Rate [Apical] Pulse Rate from SpO2 Sensor 111 H 111 H 112 H Pulse Rhythm [Apical] Pulse Strength [Apical] Respiratory Rate 20 26 H 25 H Respiratory Effort / Characteristics Respiratory Depth Respiratory Pattern Blood Pressure 112/73 Blood Pressure [Left Arm] Blood Pressure Mean 86 Blood Pressure Mean [Left Arm] Blood Pressure Position Blood Pressure Position [Left Arm] Pulse Oximetry 94 94 95 Oxygen Delivery Method Nasal Cannula Nasal Cannula Oxygen Flow Rate 2 2 05/10/18 21:46 05/10/18 22:00 05/10/18 22:01 Temperature Temperature Source Sepsis Recent Fever Within 48 Hours Sepsis New/Unexplained Change in Mental Status Pulse Rate 112 H 109 H 107 H Pulse Rate [Apical] Pulse Rate from SpO2 Sensor 111 H 108 H 107 H Pulse Rhythm [Apical] Pulse Strength [Apical] Respiratory Rate 28 H 23 24 Respiratory Effort / Characteristics Respiratory Depth Respiratory Pattern Blood Pressure 106/48 L Blood Pressure [Left Arm] Blood Pressure Mean 67 Blood Pressure Mean [Left Arm] Blood Pressure Position Blood Pressure Position [Left Arm] Pulse Oximetry 94 94 93 Oxygen Delivery Method Oxygen Flow Rate 05/10/18 22:23 05/10/18 22:52 05/11/18 00:13 Temperature 37.0 C 36.7 C Temperature Source Oral Oral Sepsis Recent Fever Within 48 Hours Sepsis New/Unexplained Change in Mental Status Pulse Rate 95 H Pulse Rate [Apical] 108 H Pulse Rate from SpO2 Sensor Pulse Rhythm [Apical] Regular Pulse Strength [Apical] Normal Respiratory Rate 22 18 Respiratory Effort / Characteristics Non-Labored Spontaneous SOB on Exertion Non-Labored Spontaneous Respiratory Depth Normal Normal Respiratory Pattern Regular Regular Blood Pressure Blood Pressure [Left Arm] 124/77 Blood Pressure Mean Blood Pressure Mean [Left Arm] 92 Blood Pressure Position Blood Pressure Position [Left Arm] Lying Pulse Oximetry 90 95 Oxygen Delivery Method Room Air CPAP Oxygen Flow Rate 05/11/18 00:20 Temperature 36.6 C Temperature Source Oral Sepsis Recent Fever Within 48 Hours Sepsis New/Unexplained Change in Mental Status Pulse Rate Pulse Rate [Apical] 101 H Pulse Rate from SpO2 Sensor Pulse Rhythm [Apical] Regular Pulse Strength [Apical] Normal Respiratory Rate 20 Respiratory Effort / Characteristics Non-Labored Spontaneous Respiratory Depth Normal Respiratory Pattern Blood Pressure Blood Pressure [Left Arm] 139/89 Blood Pressure Mean Blood Pressure Mean [Left Arm] 105 Blood Pressure Position Blood Pressure Position [Left Arm] Lying Pulse Oximetry 96 Oxygen Delivery Method Room Air Oxygen Flow Rate General: Non-ill appearing middle-aged female with wheezing and cough on exam. Appears mildly tachypneic. HEENT: Normal cephalic atraumatic. Pupils are equal round and reactive to light. Extraocular movements are intact. Oropharynx is pink with moist mucous membranes. No swelling of the mouth lips or tongue. Neck: Supple with a midline trachea. No meningeal signs or stiffness, no JVD or bruits. No Stridor. Chest: Wheezes bilaterally. Mildly tachypneic. Tender to the lower anterior right ribs. Heart: regular rate and rhythm. Abdomen: Soft nontender, nondistended without rebound guarding or rigidity. Extremities: No cyanosis clubbing or edema. No calf tenderness or assymetry. Spine/Back. Non tender to palpation. No CVA tenderness Skin: Good turgor without rashes. Neurologic exam: Cranial nerves two through 12 are intact. Motor and sensation are intact and symmetrical throughout. Course 1906: Past medical records reviewed. The patient was evaluated in room D2B, and a complete history and physical examination were performed. 2021: I reviewed the patient's case with Dr. Carmelo Branch [facility] Hospitalist. He will evaluate the patient for further management. 2041: Nursing staff called me to the room at this time. The patient is stating that she cannot breathe currently. there is no evidence of allergic reaction. No rash, no facial swelling, no nausea, vomiting, or diarrhea. Administered Medications Sodium Chloride (Nss 1000ml) 1,000 mls @ 75 mls/hr IV .[id number] [facility] Stop: 05/11/18 22:59 Last Admin: 05/10/18 23:43 Dose: 75 mls/hr Documented by: [id number] Ceftriaxone Sodium 1,000 mg/ (Dextrose) 50 mls @ 100 mls/hr IV Q24H [facility]; Protocol Stop: 05/17/18 23:29 Last Infusion: 05/11/18 00:13 Dose: 0 mls/hr Documented by: [id number] Admin: 05/10/18 23:43 Dose: 100 mls/hr Documented by: [id number] Doxycycline Hyclate 100 mg/ (Dextrose) 110 mls @ 50 mls/hr IV Q12H [facility] Stop: 05/17/18 23:29 Last Admin: 05/10/18 23:43 Dose: 50 mls/hr Documented by: [id number] Methylprednisolone 40 mg/ (Syringe) 0.64 mls @ 1.5 mls/min IV Q8H [facility] Stop: 06/10/18 00:00 Last Admin: 05/10/18 23:45 Dose: 1.5 mls/min Documented by: [id number] Insulin Aspart (Novolog Flexpen) 0 units SC 0330,2315 [facility] Stop: 05/11/18 03:31 Last Admin: 05/10/18 23:48 Dose: 6 units Documented by: [id number] Cosigned by: [id number] Insulin Glargine (Lantus Solostar Pen) 5 units SC BID [facility] Stop: 06/09/18 23:14 Last Admin: 05/10/18 23:46 Dose: 5 units Documented by: [id number] Cosigned by: [id number] Miscellaneous (Order Awaiting Action) 1 ea N/A QS [facility] Stop: 06/10/18 00:00 Last Admin: 05/10/18 23:43 Dose: Not Given Documented by: [id number] Ranitidine HCl (Zantac) 150 mg PO BID [facility] Stop: 06/09/18 22:50 Last Admin: 05/10/18 23:45 Dose: 150 mg Documented by: [id number] Discontinued Medications Acetaminophen (Tylenol) 650 mg PO NOW STA Stop: 05/10/18 20:44 Last Admin: 05/10/18 20:50 Dose: 650 mg Documented by: [id number] Albuterol (Ventolin 0.083% 2.5mg/3ml) 2.5 mg NEB NOW STA Stop: 05/10/18 19:16 Last Admin: 05/10/18 19:22 Dose: 2.5 mg Documented by: [id number] Albuterol (Ventolin 0.083% 2.5mg/3ml) 2.5 mg NEB NOW STA Stop: 05/10/18 20:44 Last Admin: 05/10/18 20:50 Dose: 2.5 mg Documented by: [id number] Piperacillin Sod/Tazobactam Sod (Zosyn) 4.5 gm in 120 mls @ 240 mls/hr IV NOW ONE Stop: 05/10/18 20:18 Last Infusion: 05/10/18 20:54 Dose: 0 mls/hr Documented by: [id number] Admin: 05/10/18 20:03 Dose: 240 mls/hr Documented by: [id number] Sodium Chloride (Nss 1000ml) 1,000 mls @ 999 mls/hr IV .Q1H1M ONE Stop: 05/10/18 20:51 Last Infusion: 05/10/18 21:05 Dose: 0 mls/hr Documented by: [id number] Admin: 05/10/18 20:03 Dose: 999 mls/hr Documented by: [id number] Medical Decision Making Differential Diagnosis Differential Diagnosis includes: Pneumonia, sepsis, COPD exacerbation, cardiac disease, and electrolyte or metabolic abnormality. Medical Records Attestation: I reviewed the patient's medical records. Home Medications Current Medication List: was personally reviewed by la Laboratory Data Attestation: I reviewed the patient's lab results. Result diagrams: 05/10/18 19:28 05/10/18 19:28 Lab Results 05/10/18 05/10/18 05/10/18 Range/Units 19:15 19:28 19:28 WBC 26.26 H (4.8-10.8) K/uL RBC 4.19 L (4.2-5.4) M/uL Hgb 10.1 L (12.0-16.0) g/dL Hct 32.2 L (37-47) % MCV 76.8 L (80-100) fL MCH 24.1 L (25-34) pg MCHC 31.4 L (32-36) g/dL RDW Std Deviation 49.1 H (36.4-46.3) fL RDW Coeff of Dinah 17.2 H (11.5-14.5) % Plt Count 379 (130-400) K/uL MPV 10.5 H (7.4-10.4) fL Immature Gran % (Auto) 0.5 % Neut % (Auto) 80.4 % Lymph % (Auto) 7.3 % Karnes % (Auto) 11.4 % Eos % (Auto) 0.3 % Baso % (Auto) 0.1 % Immature Gran # (Auto) 0.12 H (0.00-0.02) K/uL Neut # (Auto) 21.13 H (1.4-6.5) K/uL Lymph # (Auto) 1.93 (1.2-3.4) K/uL Karnes # (Auto) 2.99 H (0.11-0.59) K/uL Eos # (Auto) 0.07 (0-0.5) K/uL Baso # (Auto) 0.02 (0-0.2) K/uL PT 10.9 (9.0-12.0) Seconds INR 1.1 (0.9-1.1) APTT 24.7 (21.0-31.0) Seconds PTT Ratio 0.9 Sodium (136-145) mmol/L Potassium (3.5-5.1) mmol/L Chloride (98-107) mmol/L Carbon Dioxide (21-32) mmol/L Anion Gap (3-11) BUN (7-18) mg/dl Creatinine (0.6-1.2) mg/dl Est Cr Clr Drug Dosing ml/min Est GFR ( Amer) Est GFR (Non-Af Amer) BUN/Creatinine Ratio (10-20) Glucose (70-99) mg/dl POC Glucose (70-99) Lactate (0.4-2.0) mmol/L Calcium (8.5-10.1) mg/dl Total Bilirubin (0.2-1) mg/dl AST (15-37) U/L ALT (12-78) U/L Alkaline Phosphatase (45-117) U/L Troponin I (0-0.045) ng/ml Total Protein (6.4-8.2) gm/dl Albumin (3.4-5.0) gm/dl Globulin (2.5-4.0) gm/dl Albumin/Globulin Ratio (0.9-2) Influenza Type A Ag Neg for Influ A (Neg) Influenza Type B Ag Neg for Influ B (Neg) 05/10/18 05/10/18 05/10/18 Range/Units 19:28 19:28 23:37 WBC (4.8-10.8) K/uL RBC (4.2-5.4) M/uL Hgb (12.0-16.0) g/dL Hct (37-47) % MCV (80-100) fL MCH (25-34) pg MCHC (32-36) g/dL RDW Std Deviation (36.4-46.3) fL RDW Coeff of Dinah (11.5-14.5) % Plt Count (130-400) K/uL MPV (7.4-10.4) fL Immature Gran % (Auto) % Neut % (Auto) % Lymph % (Auto) % Karnes % (Auto) % Eos % (Auto) % Baso % (Auto) % Immature Gran # (Auto) (0.00-0.02) K/uL Neut # (Auto) (1.4-6.5) K/uL Lymph # (Auto) (1.2-3.4) K/uL Karnes # (Auto) (0.11-0.59) K/uL Eos # (Auto) (0-0.5) K/uL Baso # (Auto) (0-0.2) K/uL PT (9.0-12.0) Seconds INR (0.9-1.1) APTT (21.0-31.0) Seconds PTT Ratio Sodium 135 L (136-145) mmol/L Potassium 3.7 (3.5-5.1) mmol/L Chloride 102 (98-107) mmol/L Carbon Dioxide 26 (21-32) mmol/L Anion Gap 7.0 (3-11) BUN 14 (7-18) mg/dl Creatinine 0.95 (0.6-1.2) mg/dl Est Cr Clr Drug Dosing 82.5 ml/min Est GFR ( Amer) 82.1 Est GFR (Non-Af Amer) 70.8 BUN/Creatinine Ratio 14.4 (10-20) Glucose 214 H (70-99) mg/dl POC Glucose 309 H (70-99) Lactate 1.5 (0.4-2.0) mmol/L Calcium 8.5 (8.5-10.1) mg/dl Total Bilirubin 0.4 (0.2-1) mg/dl AST 18 (15-37) U/L ALT 25 (12-78) U/L Alkaline Phosphatase 63 (45-117) U/L Troponin I < 0.015 (0-0.045) ng/ml Total Protein 6.9 (6.4-8.2) gm/dl Albumin 3.2 L (3.4-5.0) gm/dl Globulin 3.7 (2.5-4.0) gm/dl Albumin/Globulin Ratio 0.9 (0.9-2) Influenza Type A Ag (Neg) Influenza Type B Ag (Neg) Imaging Data Attestation: I personally reviewed and interpreted this imaging study as foll ows: Radiologist's Impression: XR chest 1V portable CLINICAL HISTORY: Sepsis COMPARISON STUDY: 05/04/2015 FINDINGS: The heart is normal in size. There is radiographic evidence of pulmonary emphysema. There are bilateral reticulonodular airspace opacities, most pronounced within the right midlung zone. The findings are likely infectious/inflammatory given history of sepsis. Clinical and radiographic follow-up is recommended. IMPRESSION: 1. Pulmonary emphysema 2. Interval development of bilateral reticulonodular opacities, likely infecti ous/inflammatory given the history of sepsis. Clinical and radiographic follow- up is recommended. Electronically signed by: Mahendra Patten M.D. 05/10/2018 7:39 PM ECG Data Attestation: I personally reviewed and interpreted this ECG as follows: Indication: SOB/dyspnea Rate (beats per minute): 114 Rhythm: sinus tachycardia Findings: + other (Short MT) and + nonspecific-ST abn Comparison ECG Date: from (05/04/2015) Change: no significant change Blood Pressure Blood Pressure Findings: Normal blood pressure MDM Narrative This patient comes in as described above she is brought in by ambulance. She saw urgent care was diagnosed with pneumonia she had a cough and a fever and shortness of breath she does have a significant COPD. On route she received 3 duo nebs as well as IV Solu-Medrol she is feeling better but still wheezing she was given additional nebulized treatment here. Chest x-ray does confirm right lower lobe infiltrate. Her white count is significant elevated over 20,000 although she tends to run elevated. She has no acute electrolyte or metabolic abnormalities. While she was here she was doing better but then started feeling short of breath I reassessed her. Her vitals are stable. She felt warm she told me she had no evidence of allergic reaction. She was given Tylenol and additional neb and felt much better. Her lactic acid not scantly elevated. She received IV antibiotics as well as IV hydration and will be pneumonia and sepsis. Impression & Plan Pneumonia, SOB (shortness of breath), COPD (chronic obstructive pulmonary disease), Sepsis Discharge Plan Visit Data *Final* Discharge Date/Time: 05/10/18 22:26 Chief Complaint: Shortness of Breath/Dyspnea Stated Complaint: SOB ED Provider: Khoa Ruth Discharge Problem: Pneumonia, SOB (shortness of breath), COPD (chronic obstructive pulmonary disease), Sepsis Patient Disposition: Admitted As Inpatient Discharge Instructions Interventions: ED Discharge Assessment Last Done: 05/10/18 22:26 The scribe's documentation has been prepared under my direction and personally reviewed by me in its entirety. I confirm that the note above accurately reflects all work, treatment, procedures, and medical decision making performed by me.
[2018-05-11] MEDS: LEVALBUTEROL 1.25MG/0.5ML NEB INH SCH ×3 (01:52→13:54)
[2018-05-11] MEDS: IPRATROPIUM BROMIDE NEB SOLN 0.02% 2.5 ML VIAL INH SCH ×3 (01:52→13:54)
[2018-05-11] MEDS ORDERED: XOPENEX/ATROVENT 1.25mg/0.5MG NEB COMBO NEB SCH (02:00)
--- NOTE | 2018-05-11 02:33 | History and Physical Report ---
DATE OF ADMISSION: 05/10/2018 CHIEF COMPLAINT: Shortness of breath. HISTORY OF PRESENT ILLNESS: This is a 48-year-old female with past medical history significant for hypothyroidism, diabetes, hyperlipidemia, COPD, history of sleep apnea, history of tricuspid regurgitation, GERD, history of tobacco use disorder, history of depression, who presents with shortness of breath. The patient states since today morning, she got short of breath and also having pain in the right lower chest when taking deep breath. She chronically has cough because of COPD with yellow and white phlegm that did not change, but she also had some mild temp spike at home. In the ER, she was having temp spike and short of breath and she required neb treatments. Currently somewhat tachycardic from the neb treatments, otherwise she is feeling a little bit better. She has headaches, no blurred vision, no earache, no runny nose, no sore throat, no difficulty swallowing. No nausea, no vomiting. Appetite is okay. No abdominal pain. Normal bowel and bladder movements. No hematuria. No burning micturition. No melena, no hematochezia. No orthopnea, no swelling in the legs, no rash. ALLERGIES: SULFA ANTIBIOTICS. PAST MEDICAL HISTORY: As mentioned above. PAST SURGICAL HISTORY: Carpal tunnel surgery, colonoscopy with biopsy, EGDs, right knee arthroscopy, ligation of oviducts, thyroidectomy subtotal. MEDICATIONS: The patient is on Spiriva Respimat 2 puffs daily, Zantac 150 mg p.o. b.i.d., atorvastatin 20 mg p.o. daily, metformin 1000 mg p.o. b.i.d., Flexeril 10 mg p.o. t.i.d. p.r.n., levothyroxine 137 mcg p.o. daily, Starlix 120 mg p.o. t.i.d., Celexa 20 mg p.o. daily, glimepiride 4 mg p.o. daily, Ventolin 2 puffs every 4 hours p.r.n., fenofibrate 160 mg p.o. daily with food, lisinopril 10 mg p.o. daily, Singulair 10 mg p.o. daily, Protonix 40 mg p.o. b.i.d., DuoNebs 4 times a day, Advair Diskus one inhalation b.i.d. FAMILY HISTORY: Significant for mother has diabetes and hyperlipidemia, father has hypertension, brother has diabetes, hepatitis C. SOCIAL HISTORY: , quit smoking about 2 years ago, smoked 1 pack a day for 26 years. No alcohol use, no drug use. REVIEW OF SYSTEMS: As per HPI. Rest of the review of systems negative. PHYSICAL EXAMINATION: GENERAL: The patient is of moderate build, not in acute distress. VITAL SIGNS: Temperature 37.8, pulse 110, respiratory rate in 20s, blood pressure 112/73, pulse 94% on 2 liters. HEENT: No pallor, no icterus. Pupils equal, round, and reactive to light. NECK: No JVD, no neck masses, no carotid bruit. CARDIOVASCULAR: S1, S2 heard. Tachycardia. No murmurs. RESPIRATORY SYSTEM: Normal AP diameter. No accessory muscle use. Bilateral wheezing heard. No crackles. ABDOMEN: Soft, bowel sounds present. Nontender. No distention. CENTRAL NERVOUS SYSTEM: Cranial nerves II-XII grossly intact. Nonfocal. EXTREMITIES: Mild pedal edema present, no erythema seen. LABORATORY DATA: WBC 26.2, hemoglobin 10.1, hematocrit 32.2, platelets 379. PT 10.9, INR 1.1, APTT 24.7. Sodium 135, potassium 3.7, chloride 102, bicarb 26, BUN 14, creatinine 0.9, serum glucose 214. Lactate is 1.5, calcium 8.5, total bilirubin 0.4, AST 18, ALT 25, alkaline phosphatase 63, troponin I less than 0.015. Influenza A and B negative. IMAGING DATA: Chest x-ray shows pulmonary emphysema, interval development of bilateral reticulonodular opacities, likely infectious. Followup is recommended. EKG: Sinus tachycardia at a rate of 110, nonspecific ST-T wave abnormalities seen. ASSESSMENT AND PLAN: This is a 48-year-old female who presents with shortness of breath, found to be with pneumonia and chronic obstructive pulmonary disease exacerbation. 1. Pneumonia,CAP, s chronic obstructive pulmonary disease exacerbation. Received Zosyn in the ER. We will place her on IV Rocephin and doxycycline, nebs around the clock and p.r.n., and IV Solu-Medrol. Sputum cultures and blood cultures and follow the response. Monitor on med/surg tele. 2. History of chronic obstructive pulmonary disease, continue nebs and home inhalers. The patient is not on oxygen at home. We will monitor her response as well as oxygen requirement in the hospital. 3. History of sleep apnea, on CPAP at bedtime. 4. History of diabetes. We will hold her p.o. medications. We will place her on Lantus insulin sliding scale. Follow HbA1c levels. We will monitor the blood sugars while she is on IV steroids. Will consult pharmacy will help with insulin regimen. 5. Hyperlipidemia. Continue statin. 6. Hypothyroidism. Continue Synthroid. 7. Depression. Continue Celexa. 8. Hypertension, on lisinopril. Will monitor the blood pressure. 9. History of gastroesophageal reflux disease, on PPI and Zantac. 10. Anemia of unknown cause, etiology unclear. Will check the stool for Hemoccult and iron studies and follow up with PCP. 11. DVT px. Hep sub q 12. Disposition: Admission to med/surg tele. Level 1 full code. MTDD
[2018-05-11] MEDS ORDERED: INSULIN ASPART 100 UNITS/ML 3 ML PEN SC SCH (03:45)
[2018-05-11] MEDS ORDERED: INSULIN HUMAN REGULAR PER UNIT 5 UNITS in SYRINGE 4.95 ML IV SCH (03:45)
[2018-05-11] MEDS ORDERED: XOPENEX/ATROVENT 0.63mg/0.5MG NEB COMBO NEB PRN (03:47)
[2018-05-11] MEDS: INSULIN ASPART 100 UNITS/ML 3 ML PEN SC SCH ×3 (03:57→12:40)
[2018-05-11] MEDS ORDERED: IPRATROPIUM BROMIDE NEB SOLN 0.02% 2.5 ML VIAL INH PRN (04:00)
[2018-05-11] MEDS ORDERED: LEVALBUTEROL HCL 0.63 MG/3 ML NEB NEB PRN (04:00)
[2018-05-11 05:41] LABS: Hematocrit (blood only) 31.1 % (37-47); Hemoglobin 9.8 g/dL (12.0-16.0); Mean Corpuscular Hgb Conc 31.5 g/dL (32-36); Mean Corpuscular Volume 77.4 fL (80-100); Mean Platelet Volume 10.5 fL (7.4-10.4); Nucleated RBC # (auto) 0.02 K/uL (0-0); Nucleated RBC % (auto) 0.1 %; Platelet Count 369 K/uL (130-400); RDW Coefficient of Variation 17.3 % (11.5-14.5); RDW Standard Deviation 49.6 fL (36.4-46.3); Red Blood Count 4.02 M/uL (4.2-5.4); White Blood Count 25.08 K/uL (4.8-10.8)
[2018-05-11] MEDS ORDERED: HEPARIN SOD 5,000 UNIT/0.5 ML VIAL SQ SCH (06:00)
[2018-05-11 06:04] LABS: BUN Creatinine Ratio 13.7 (10-20); Calcium 8.5 mg/dl (8.5-10.1); Est GFR (African American) 77.2; Est GFR (Non-African American) 66.6; Magnesium 1.9 mg/dl (1.8-2.4); Potassium 3.8 mmol/L (3.5-5.1)
[2018-05-11 06:05] LABS: Basophils # (auto) 0.01 K/uL (0-0.2); Immature Granulocytes # (auto) 0.07 K/uL (0.00-0.02); Immature Granulocytes % (auto) 0.3 %; Lymphocytes # (auto) 1.17 K/uL (1.2-3.4); Lymphocytes % (auto) 4.7 %; Monocytes # (auto) 1.16 K/uL (0.11-0.59); Monocytes % (auto) 4.6 %; Neutrophils # (auto) 22.67 K/uL (1.4-6.5); Neutrophils % (auto) 90.4 %
[2018-05-11 06:12] LABS: Ferritin 38.3 ng/ml (8-388)
[2018-05-11 06:27] LABS: Estimated Average Glucose 229 mg/dl; Hemoglobin A1C 9.6 % (4.5-5.6)
[2018-05-11] MEDS ORDERED: LEVOTHYROXINE SODIUM 137 MCG TABLET PO SCH (06:30)
[2018-05-11] MEDS ORDERED: INSULIN GLARGINE SOLOSTAR 100 UNITS/ML 3 ML PEN SC SCH ×2 (08:15→21:00)
[2018-05-11 08:28] LABS: Folate (Folic Acid) 14.45 ng/ml (>5.38)
[2018-05-11] MEDS ORDERED: LISINOPRIL 10 MG TAB PO SCH (09:00)
[2018-05-11] MEDS ORDERED: FLUTICASONE/SALMETEROL (ADVAIR) 500/50 INH 14 PUFF INH SCH (09:00)
[2018-05-11] MEDS ORDERED: PANTOprazole 40 MG TAB PO SCH (09:00)
[2018-05-11] MEDS ORDERED: TIOTROPIUM BROMIDE 5 PUFF/90 MCG INH INH SCH (09:00)
[2018-05-11] MEDS ORDERED: ATORVASTATIN 20 MG TAB PO SCH (09:00)
[2018-05-11] MEDS ORDERED: DICYCLOMINE HCL 10 MG CAP PO SCH (09:00)
[2018-05-11] MEDS ORDERED: CITALOPRAM 20 MG TAB PO SCH (09:00)
[2018-05-11] MEDS: FENOFIBRATE~ORDER AWAITING ACTION SCH (09:11)
[2018-05-11] MEDS: methylPREDNISolone 40 MG in SYRINGE 0 ML IV SCH (09:12)
[2018-05-11] MEDS: DOXYCYCLINE HYCLATE 100 MG in DEXTROSE 5% 100 ML IV SCH (12:41)
[2018-05-11] MEDS: SODIUM CHLORIDE 0.9% 1000ML 1,000 ML IV SCH (12:45)
--- NOTE | 2018-05-11 14:48 | Discharge Summary ---
Date of Service May 11, 2018 Admission HPI Per Admitting Provider HISTORY OF PRESENT ILLNESS: This is a 48-year-old female with past medical history significant for hypothyroidism, diabetes, hyperlipidemia, COPD, history of sleep apnea, history of tricuspid regurgitation, GERD, history of tobacco use disorder, history of depression, who presents with shortness of breath. The patient states since today morning, she got short of breath and also having pain in the right lower chest when taking deep breath. She chronically has cough because of COPD with yellow and white phlegm that did not change, but she also had some mild temp spike at home. In the ER, she was having temp spike and short of breath and she required neb treatments. Currently somewhat tachycardic from the neb treatments, otherwise she is feeling a little bit better. She has headaches, no blurred vision, no earache, no runny nose, no sore throat, no difficulty swallowing. No nausea, no vomiting. Appetite is okay. No abdominal pain. Normal bowel and bladder movements. No hematuria. No burning micturition. No melena, no hematochezia. No orthopnea, no swelling in the legs, no rash Admission Exam Per Admitting Provider PHYSICAL EXAMINATION: GENERAL: The patient is of moderate build, not in acute distress. VITAL SIGNS: Temperature 37.8, pulse 110, respiratory rate in 20s, blood pressure 112/73, pulse 94% on 2 liters. HEENT: No pallor, no icterus. Pupils equal, round, and reactive to light. NECK: No JVD, no neck masses, no carotid bruit. CARDIOVASCULAR: S1, S2 heard. Tachycardia. No murmurs. RESPIRATORY SYSTEM: Normal AP diameter. No accessory muscle use. Bilateral wheezing heard. No crackles. ABDOMEN: Soft, bowel sounds present. Nontender. No distention. CENTRAL NERVOUS SYSTEM: Cranial nerves II-XII grossly intact. Nonfocal. EXTREMITIES: Mild pedal edema present, no erythema seen. Principal Diagnosis Pneumonia 2/2 COPD exacerbation Uncontrolled DMII Discharge Data Allergies Allergy/AdvReac Type Severity Reaction Status Date / Time Sulfa (Sulfonamide Allergy Intermediate RASH,SWELLI Verified 05/10/18 19:45 Antibiotics) NG Consultations 05/10/18 20:13 ED Decision to Admit Stat Hospital Course (1) Pneumonia: (2) COPD exacerbation: (3) HTN (hypertension): (4) DM2 (diabetes mellitus, type 2): (5) Obesity: The patient is a previous smoker with COPD who does not use oxygen at baseline who presented to the emergency room with worsening shortness of breath. She reported 2 days prior developing body aches and went to the urgent care facility where she was diagnosed with pneumonia. She was given a Z-Felix and steroids but did not pick them up secondary to a logistics issue. She persistently had productive cough of yellow mucus, shortness of breath and despite breathing treatments at home with nebulizer therapy she continued to feel worse prompting ER visit. On arrival to the ER temp was 37.8 C heart rate was in the 110-120 range, respiratory rate was slightly elevated at 24. She was oxygenating well on room air. Blood pressure was 121/67. On exam she was found to be wheezing and with a cough. She was reportedly to have mild tachypnea which improved overnight. She was started on Rocephin and doxycycline empirically and given IV fluids. For her wheezing she was started on Solu-Medro l IV 40 mg every 8 hours. A CBC revealed white blood cell count 26, H&H 10/32. She had a normal BMP with an elevated glucose of 214. Her flu antigen screening was negative. She did report some chest pain associate with the pneumonia and troponin was checked and negative. Chest x-ray revealed pulmonary emphysema with development of bilateral opacities. EKG revealed sinus tachycardia without evidence of ischemia. She was admitted to the hospitalist service and remained on telemetry overnight. Telemetry review revealed sinus rhythm overnight with a heart rate in 80-100 range. Other lab work included an A1c which is 9.6 reflecting poor control of diabetes. Diabetic nurse educator saw her and her regimen was pared down to include Lantus which was a new medication in addition to metformin. She was taught how to inject herself subcutaneously and was sent home with a new prescription of Lantus 15 units nightly. It should be noted that she will be on prednisone for the next 5 days which may alter her glucose readings at home. She was instructed to contact her primary care doc within the next week if her glucose was greater than 250 on 2 successive readings. On hospital day 2, although she was not to baseline, she felt improved and was reporting that she needed to go home. She had not required supplemental oxygen throughout her stay. Her wheezing had resolved although breath sounds were still somewhat diminished. She was not tachypneic but did not appear completely comfortable with her breathing. It was recommended that she stay, but she needed to get home for work related reasons. Therefore, she was discharged in fair condition with close primary care follow-up which was set up prior to her discharge at a time that works for her. This follow-up will be important to ensure her respiratory illness is improved and to monitor her blood glucose levels very closely with any changes in her medications and in the setting of recent steroid use. Blood cultures were pending at time of discharge. Total Time Total Time Spent Total Time Spent (In Minutes): 60 Total Time Includes: Examination of the Patient, Discharge Planning, Medication Reconciliation, Communication With Other Providers and Other (followup appt) Discharge Plan Discharge Items Patient Disposition: Home - Self-Care Reason For Visit: SOB Discharge Diagnosis: Pneumonia 2/2 COPD exacerbation Uncontrolled DMII Condition: Fair Discharge Goals: Improve disease control Activity: Resume your previous activity Non-emergency contact: Primary Care Provider Call non-emergency contact if: you have any medication questions, your symptoms worsen, your pain is not controlled, your pain is worsening, your pain is unusual for you, your pain is concerning for you and you have a fever Follow-up/Referrals: Sam Valdovinos MD [Primary Care Provider] - Diet: Carb Consistent or DM2 and Heart Healthy Addtl Provider Instructions: Please take all medications as instructed on discharge list below. It is important that you follow-up with your primary care doctor within 1 week of discharge: Date & Time 05/15/2018 1:00 PM Provider Sam Valdovinos MD Department Internal Medicine [facility] Please check your blood sugar daily and contact your primary care provider if your blood sugar is >250 on two successive readings. It was a pleasure taking care of you! Please call if you have any questions or problems. You can reach a [facility] hospitalist on duty at [facility] 24 hours a day by calling [phone]. Take care of yourself. Jana Juárez, DO [facility] Hospitalist Prescriptions: New Lantus Solostar U-100 Insulin 100 unit/mL (3 mL) Insulin Pen 15 units SC HS Qty: 15 RF: 2 prednisone 20 mg tablet 40 mg PO DAILY 5 Days Qty: 10 RF: 0 cefdinir 300 mg capsule 300 mg PO BID 10 Days Qty: 20 RF: 0 pen needle, diabetic [Pen Needle] 32 gauge x 5/32" needle .ROUTE .MEDSUPPLY Qty: 100 RF: 1 Continued cyclobenzaprine 10 mg tablet 10 mg PO DAILY PRN (Reason: Muscle Spasm) RF: 0 levothyroxine 137 mcg tablet 137 mcg PO QAM RF: 0 atorvastatin 20 mg tablet 20 mg PO DAILY RF: 0 citalopram 20 mg tablet 20 mg PO DAILY RF: 0 pantoprazole 40 mg tablet,delayed release (DR/EC) 40 mg PO BID RF: 0 metformin 1,000 mg tablet 1,000 mg PO BID RF: 0 ranitidine HCl 150 mg tablet 150 mg PO BID RF: 0 lisinopril 10 mg tablet 10 mg PO QAM RF: 0 fluticasone propion-salmeterol [Advair Diskus] 500-50 mcg/dose blister with device 1 puff Inhalation BID RF: 0 montelukast 10 mg tablet 10 mg PO QPM RF: 0 albuterol sulfate [Ventolin HFA] 90 mcg/actuation HFA aerosol inhaler 2 - 4 puff Inhalation Q4H PRN (Reason: Wheezing) RF: 0 dicyclomine 10 mg Capsule 10 mg PO BID RF: 0 fenofibrate 160 mg tablet 160 mg PO QPM RF: 0 Spiriva Respimat 2.5 mcg/actuation mist 2 puff Inhalation QAM RF: 0 Discontinued nateglinide 120 mg tablet 120 mg PO TIDM RF: 0 glimepiride 4 mg tablet 4 mg PO QAM RF: 0 Stand-Alone Forms: [facility], [facility], Work/School Release (Inpt) Discharge Orders: Discharge Order (Routine); Ordered 05/11/18 Ordered By: Jana Juárez Admission Data Admit Date/Time: 05/10/18 21:58 Attending Provider: Jana Juárez Admit Provider: Michael Rhodes Primary Care Provider: Sam Valdovinos Other Providers: Michael Rhodes Service: Telemetry Medical
--- NOTE | 2018-05-11 14:51 | Pharmacy Report ---
Glycemic Control Consultation - Date of Service May 11, 2018 - Scope Scope: Glycemic Pharmacist consulted by Dr Rhodes on 05/10/18 for glycemic control and to write orders per [facility] inpatient glycemic control protocol - Objective Weight: 96.4 kg Accuchecks BSG (last 24hrs): 05/10/18 05/10/18 05/11/18 19:28 23:37 03:25 Glucose 214 H POC Glucose 309 H 339 H 05/11/18 05/11/18 05:14 12:35 Glucose 273 H POC Glucose 313 H Laboratory Data (last 24hrs): 05/10/18 05/11/18 19:28 05:14 Potassium 3.7 3.8 Carbon Dioxide 26 25 Anion Gap 7.0 8.0 Creatinine 0.95 1.00 Est Cr Clr Drug Dosing 82.5 79.0 HbA1c: Hemoglobin A1c 9.6 % (4.5-5.6) H 05/11/18 05:14 - Recent Pertinent Medications Outpatient Anti-diabetic Regimen: * Starlix, Glimepiride, Metformin * A1c = 9.6 % 05/11/18 - Assessment & Plan Assessment & Plan: ASSESSMENT: * Pt is a 48yo F p/w SOB. Her outpt glycemic management is poorly controlled as evidenced by her A1C of 9.6%. PMHx consistent with HLD, COPD, GERD, tricuspid regurg, DM-II. She is receiving solumedrol 40mg q8. PLAN FOR INPATIENT GLYCEMIC CONTROL: * Holding outpatient oral diabetes medications * Basal insulin * Lantus 15 units given this AM then SQ scale for tonight: * For BSGs <200mg/dL give 20 units * For BSGs >/=200mg/dL give 25 units * Bolus insulin * NovoLog per scale ACHS or Q6hrs while NPO * Goal Range: Low 110 mg/dL - High 140 mg/dL * Correction Factor: 15 mg/dL/unit * Nutritional / Prandial insulin per carb ratio of 1 unit per 5 grams CHO consumed * adding overnight checks * Please note that the plan above was derived based on current level of insulin resistance and hospital stress. These recommendations are appropriate for inpatient admission only. Plan of care upon discharge will need to be reassessed to avoid potential outpatient hypo/hyperglycemia. Thank you.
[2018-05-11] MEDS ORDERED: MONTELUKAST SODIUM 10 MG TABLET PO SCH (21:00)
[2018-05-12] MEDS ORDERED: INSULIN ASPART 100 UNITS/ML 3 ML PEN SC SCH
== END 2018-05-11 16:00 | disposition home or self-care (01) | DRG 190 ==
LOC: ED 19:04 → 2N 21:58

== ENCOUNTER 2020-12-10 02:00 | Inpatient (IN) ==
[2020-12-10] MEDS ORDERED: ALBUT/IPRATROP 3MG/0.5MG NEB 3 ML VIAL INH STA (02:31)
[2020-12-10] MEDS ORDERED: methylPREDNISolone 125 MG/2 ML VIAL IV STA (02:31)
[2020-12-10 02:41] LABS: Basophils # (auto) 0.03 K/uL (0-0.2); Basophils % (auto) 0.2 %; Eosinophils # (auto) 0.11 K/uL (0-0.5); Eosinophils % (auto) 0.6 %; Hematocrit (blood only) 39.5 % (37-47); Hemoglobin 12.8 g/dL (12.0-16.0); Immature Granulocytes # (auto) 0.08 K/uL (0.00-0.02); Immature Granulocytes % (auto) 0.4 %; Lymphocytes # (auto) 2.82 K/uL (1.2-3.4); Lymphocytes % (auto) 14.9 %; Mean Corpuscular Hemoglobin 27.3 pg (25-34); Mean Corpuscular Hgb Conc 32.4 g/dL (32-36); Mean Corpuscular Volume 84.2 fL (80-100); Mean Platelet Volume 11.5 fL (7.4-10.4); Monocytes # (auto) 1.97 K/uL (0.11-0.59); Monocytes % (auto) 10.4 %; Neutrophils # (auto) 13.93 K/uL (1.4-6.5); Neutrophils % (auto) 73.5 %; Platelet Count 443 K/uL (130-400); RDW Coefficient of Variation 14.4 % (11.5-14.5); RDW Standard Deviation 43.7 fL (36.4-46.3); Red Blood Count 4.69 M/uL (4.2-5.4); White Blood Count 18.94 K/uL (4.8-10.8)
[2020-12-10 02:49] LABS: Alanine Aminotransferase 31 U/L (12-78); Albumin Level 3.9 gm/dl (3.4-5.0); Aspartate Aminotransferase 13 U/L (15-37); BUN Creatinine Ratio 14.6 (10-20); Blood Urea Nitrogen 11 mg/dl (7-18); Carbon Dioxide 26 mmol/L (21-32); Chloride 108 mmol/L (98-107); Creatinine Clr Calc Pharmacy 92.6 ml/min; Est GFR (African American) 102.7 ml/min; Est GFR (Non-African American) 88.6 ml/min; Glucose 178 mg/dl (70-99); Potassium 3.8 mmol/L (3.5-5.1); Sodium 136 mmol/L (136-145)
[2020-12-10 02:51] LABS: Partial Thromboplastin Ratio 0.9; Partial Thromboplastin Time 23.1 Seconds (21.0-31.0); Prothrombin Time 10.3 Seconds (9.0-12.0)
[2020-12-10 02:54] LABS: Alkaline Phosphatase 77 U/L (45-117); Bilirubin,Total 0.3 mg/dl (0.2-1); Globulin 3.8 gm/dl (2.5-4.0); Total Protein 7.7 gm/dl (6.4-8.2); Troponin I < 0.015 ng/ml (0-0.045)
[2020-12-10] MEDS ORDERED: OPTIRAY 320 125ml IV ONE (04:44)
[2020-12-10 05:42] LABS: Appearance Urine Clear (Clear); Bacteria Urine Automated Negative (Negative); Bilirubin Urine Negative (Negative); Blood Urine Negative (Negative); Color Urine Yellow; Epithelial Cell Urine Auto 20-30 /lpf (0-5); Glucose Urine UA 3+ (Negative); Ketones Urine Negative (Negative); Leukocyte Esterase Urine Negative (Negative); Nitrite Urine Negative (Negative); Protein Urine 1+ (Negative); RBC Urine Automated 0-4 /hpf (0-4); Specific Gravity Urine 1.036 (1.000-1.030); Urobilinogen Urine Negative (Negative)
--- NOTE | 2020-12-10 08:22 | CT Scan Report ---
CT ANGIOGRAPHY OF THE CHEST, PULMONARY EMBOLUS PROTOCOL CLINICAL HISTORY: Dyspnea. COMPARISON STUDY: Chest radiograph December 10, 2020. TECHNIQUE: Following IV administration of 118 mL of Optiray, helical axial images of the chest were o btained utilizing the pulmonary embolus protocol. Maximal intensity projections and sagittal and cor onal reformats were viewed on an independent 3D workstation. IV contrast was administered without co mplication. Automated exposure control was utilized for the study. A dose lowering technique was ut ilized adhering to the principles of ALARA. CT DOSE: 482.84 mGy.cm FINDINGS: This exam is significantly compromised by respiratory motion artifact and suboptimal opaci fication. No central pulmonary emboli are identified. The size the heart is normal. There is no thora cic aortic dissection. There is moderate coronary artery calcification. No thoracic lymphadenopathy i s present. Severe upper lobe predominant emphysema is present. There is no consolidation to suggest p neumonia. There are a few tiny lung nodules which measure up to 3 mm. The largest is within the right upper lobe on image 237 of 298. No pneumothorax or pleural effusion is present. Visualized portions of the bony thorax are unremarkable. IMPRESSION: 1. No central pulmonary emboli. Remainder of pulmonary arteries suboptimally assessed due to artifact on this exam. 2. Severe emphysema. 3. A few tiny low suspicion pulmonary nodules. Follow-up chest CT in 6 months to ensure stability is recommended. ACT 112: Positive. There are findings on this exam that require communication between the performing entity and the patient following Patient Test Result Information Act ([place] Act 112) guidelines. Electronically signed by: Chun Garcia M.D. 12/10/2020 8:21 AM
--- NOTE | 2020-12-10 08:41 | XRay Report ---
XR chest 1V portable CLINICAL HISTORY: Dyspnea COMPARISON STUDY: Chest radiograph September 11, 2020. FINDINGS: Lung volumes are normal. Lungs are clear. There is no pneumothorax or pleural effusion. Car diac size is normal. Mediastinal contours are normal. There is no evidence for pulmonary edema. Emphy sema is noted. Lower lung interstitial prominence is unchanged. This is chronic. IMPRESSION: No acute cardiopulmonary findings. Emphysema. ACT 112: Negative or not required by law. Electronically signed by: Chun Garcia M.D. 12/10/2020 8:40 AM
[2020-12-10] MEDS ORDERED: ALBUT/IPRATROP 3MG/0.5MG NEB 3 ML VIAL NEB STA (12:09)
--- NOTE | 2020-12-10 12:12 | Emergency Department Note ---
ED Visit Note I was asked to evaluate this patient by the nursing staff at noon. The patient was seen overnight. I am unsure why the patient was not discharged but there was discharged paperwork in the EMR. When they tried to discharge the patient they found that she had become very short of breath again. Nursing staff was concerned that she needed another nebulizer treatment. I did order another nebulizer treatment. I reviewed the patient's vital signs. She was not hypoxic on room air but appear to be significantly tachypneic with any exertion. The patient was treated with a nebulizer treatment. She received multiple nebulizer treatments over the course of the evening. She was able to ambulate but dropped her oxygen saturation quickly to 86% on room air. She is very tachypneic. I will discuss her case with the on-call hospitalist for further evaluation. She is not comfortable being discharged home at this time. I discussed this case with Grace condon. She was on-call for the [facility] hospitalist group. They will evaluate the patient in the emergency department for further management and disposition. . : COPD (chronic obstructive pulmonary disease) Qualifiers: COPD type: chronic bronchitis Chronic bronchitis type: mixed simple and mucopurulent Qualified Code(s): J41.8 - Mixed simple and mucopurulent chronic bronchitis
--- NOTE | 2020-12-10 12:47 | Pharmacy Report ---
ED Pharmacist Progress Note - ED Pharmacist Progress Note Date of Service:: December 10, 2020 Notes:: Received call from [facility]- prescription was transmitted for delayed release doxycycline tablets, wanted to clarify if this was correct or if the capsules could be used, they do not have the delayed release tablets in stock. Reviewed prescription which was also for [address] Beck, patient still currently in the ED but being discharged. Okay to change to capsules and change duration to 5 days dispense qty of 10 capsules. Called and spoke with pharmacist relaying these updates, they had no further questions.
[2020-12-10 14:59] LABS: Base Excess ABG -2.1 mEq/L (-9-1.8); HCO3 ABG 23 mmol/L (19-24); Oxygen Saturation ABG 97.7 % (90-95); PCO2 ABG 40 mmHg (35-46); PO2 ABG 103 mmHg (80-95); pH ABG 7.38 (7.35-7.45)
[2020-12-10 15:06] LABS: Allen Test Pos (Pos)
[2020-12-10] MEDS ORDERED: GLUCOSE 40% GEL 15 GM TUBE PO PRN (18:11)
[2020-12-10] MEDS ORDERED: DEXTROSE 50% 50 ML SYRINGE IV PRN (18:11)
[2020-12-10] MEDS ORDERED: CARBOHYDRATES FOR HYPOGLYCEMIA PO PRN (18:11)
[2020-12-10] MEDS ORDERED: ONDANSETRON INJ 2 MG/ML 2 ML VIAL IV PRN (18:11)
[2020-12-10] MEDS ORDERED: GLUCOSE 10 TABS/TUBE PO PRN (18:11)
[2020-12-10] MEDS ORDERED: GLUCAGON FOR INJ 1 MG VIAL SQ PRN (18:11)
[2020-12-10] MEDS: ALBUT/IPRATROP 3MG/0.5MG NEB 3 ML VIAL NEB SCH ×3 (18:36→22:07)
--- NOTE | 2020-12-10 19:11 | History & Physical Report ---
Date of Service December 10, 2020 Assessment & Plan (1) COPD exacerbation: (2) Acute respiratory failure with hypoxia: Plan: -admit to med/surg -patient presenting from home with reports of worsening shortness of breath and cough x 4 days despite use of prednisone and z-pack -in the ED, hypoxic on room air with ambulation to 85%, currently on 2L -CTA chest negative for PE and infiltrate -WBC 18K - recent steroid use likely contributing -s/p solumedrol 60mg IV in the ED, continue with 40mg IV q8h -empiric ceftriaxone and doxy -flutter valve, IS, nebs -on Trilogy HS at home - CPAP ordered -continue routine home inhalers and Daliresp (3) HTN (hypertension): Plan: -continue Lisinopril (4) DM2 (diabetes mellitus, type 2): Plan: -hgb a1c 6.8 08/2020 -Lantus/Novolog (5) Hypothyroidism: Plan: -continue levothyroxine (6) DVT prophylaxis: Plan: -SQ Lovenox Admission and Anticipated Discharge Date Admission Date: December 10, 2020 History of Present Illness Chief Complaint: Cough, shortness of breath Primary Care Provider: Sam Valdovinos MD 50 year old female with PMH DM type II, COPD, SHAINA, hypothyroidism, and other problems listed below who presents to the ED with reports of cough and shortness of breath. Patient reports she has been feeling sick for the past 4 days. She called her risk reduction counselor and was started on azithromycin and prednisone. She reports no improvement in her symptoms. She has shortness of breath at rest and with minimal exertion. She has had a cough productive for yellow/talavera sputum. Denies fever and chills. No chest pain. Denies lightheadedness, dizziness, diaphoresis, and syncopal events. No abdominal pain, nausea, vomiting, or diarrhea. Denies urinary symptoms. In the ED, the patient was hypoxic with ambulation to 85%. CTA chest negative for PE and infiltrate. She received solumedrol 60mg IV and nebulizer treatment x 2 and continues to have significant wheezing and shortness of breath. Allergies Allergy/AdvReac Type Severity Reaction Status Date / Time Sulfa (Sulfonamide Allergy Intermediate RASH,SWELLI Verified 12/10/20 02:31 Antibiotics) NG Home Medications Medication Instructions Recorded Confirmed Type albuterol sulfate 90 mcg/actuation 2 puff INHALATION Q4H PRN 05/10/18 12/10/20 History aerosol inhaler (Ventolin HFA) atorvastatin 20 mg tablet 20 mg PO DAILY 05/10/18 12/10/20 History citalopram 20 mg tablet 20 mg PO DAILY 05/10/18 12/10/20 History cyclobenzaprine 10 mg tablet 10 mg PO DAILY PRN 05/10/18 12/10/20 History fenofibrate 160 mg tablet 160 mg PO QPM 05/10/18 12/10/20 History lisinopril 10 mg tablet 10 mg PO QAM 05/10/18 12/10/20 History montelukast 10 mg tablet 10 mg PO QPM 05/10/18 12/10/20 History pantoprazole 40 mg tablet,delayed 40 mg PO DAILY 05/10/18 12/10/20 History release insulin glargine 100 unit/mL (3 15 units SC HS #15 ml 05/11/18 12/10/20 Rx mL) subcutaneous pen (Lantus Solostar U-100 Insulin) pen needle, diabetic 32 gauge x #100 ea 05/11/18 Rx 5/32" (Pen Needle) azithromycin 250 mg tablet 250 mg PO DAILY 12/10/20 12/10/20 History fluticasone fur. 100 mcg-umeclid 1 inh INHALATION DAILY 12/10/20 12/10/20 History 62.5 mcg-vilant 25 mcg inhalat.powder (Trelegy Ellipta) ipratropium 0.5 mg-albuterol 3 mg 3 ml INHALATION QID 12/10/20 12/10/20 History (2.5 mg base)/3 mL nebulization soln levocetirizine 5 mg tablet (Xyzal) 5 mg PO QPM 12/10/20 12/10/20 History levothyroxine 125 mcg tablet 125 mcg PO DAILYBB 12/10/20 12/10/20 History melatonin 5 mg tablet 5 mg PO HS PRN 12/10/20 12/10/20 History prednisone 10 mg tablet 0 mg PO DAILY 12/10/20 12/10/20 History roflumilast 500 mcg tablet 500 mcg PO DAILY 12/10/20 12/10/20 History (Daliresp) terbinafine HCl 1 % topical cream 1 applic TOPICAL BID 12/10/20 12/10/20 History Past Med/Surg History Medical History COPD (chronic obstructive pulmonary disease) DM2 (diabetes mellitus, type 2) GERD (gastroesophageal reflux disease) HLD (hyperlipidemia) HTN (hypertension) Hypothyroidism SHAINA (obstructive sleep apnea) Surgical History H/O colonoscopy "polyps x2, hyperplastic tissue repeat at age 50" H/O thyroidectomy H/O tubal ligation History of carpal tunnel surgery of right wrist Family History (Updated 12/10/20 @ 20:36 by MARY JO Barnes) Mother Diabetes Father Hypertension Social History Smoking Status: Current every day smoker Tobacco Type: Cigarettes Cigarettes Per Day: 10; Second Hand Exposure: No; Do You Dip or Chew Tobacco: No; Hx Alcohol Use: No Hx Substance Use: No Preferred Language: Occitan Communication Ability: Effective Tree Farmer Required: No Beliefs That Will Affect Care: None marital status: Current Living Situation: Spouse and Family Current Living Situation Comment: House Other Information That Helps Us Care for You: No Feels Safe at Home: Yes Safety Concerns: Feels Safe At This Time Assistive Devices: Oxygen - Continuous Review of Systems Review of Systems: ROS per HPI, all other systems reviewed and negative Physical Exam Constitutional: WD/WN, vitals as above + ill appearing Eyes: PERRL, conjunctivae normal, anicteric sclerae ENMT: external ear and nose normal, oropharynx normal Respiratory: + tachypneic; no respiratory distress Auscultation: + diminished lung sounds (poor air entry) and + wheezes (expiratory, all lung mcdonough) Cardiovascular: Rate/Rhythm: regular rhythm and + tachycardic Vessels: normal peripheral pulses Extremities: no edema Gastrointestinal (Abdomen): normal bowel sounds, soft, nontender, no hepatosplenomegaly Musculoskeletal: no cyanosis or clubbing, extremities motor strength 5/5 Skin: no rashes, warm and dry Neurologic: PERRL, EOMI, accommodation nl, no face palsy, no dysarthria Psychiatric: A+Ox3, euthymic affect Results & Data Results & Data ([place]) Vital Signs (Past 12 Hours) Vital Signs Temp Pulse Pulse Resp BP BP Pulse Ox 12/10/20 18:43 36.6 C 110 H 16 164/97 H 94 12/10/20 18:37 78 18 94 12/10/20 18:13 90 20 94 12/10/20 12:22 106 H 18 94 12/10/20 12:00 110 H 22 113/92 92 12/10/20 08:55 104 H 21 98 Laboratory Results Short CBC 12/10/20 Range/Units 02:10 WBC 18.94 H (4.8-10.8) K/uL Hgb 12.8 (12.0-16.0) g/dL Hct 39.5 (37-47) % Plt Count 443 H (130-400) K/uL BMP 12/10/20 02:10 Sodium 136 Potassium 3.8 Chloride 108 H Carbon Dioxide 26 BUN 11 Creatinine 0.78 Glucose 178 H Calcium 9.0 Cardiac Enzymes 12/10/20 Range/Units 02:10 Troponin I < 0.015 (0-0.045) ng/ml Liver Function 12/10/20 Range/Units 02:10 Total Bilirubin 0.3 (0.2-1) mg/dl AST 13 L (15-37) U/L ALT 31 (12-78) U/L Alkaline Phosphatase 77 (45-117) U/L Albumin 3.9 (3.4-5.0) gm/dl Urine 12/10/20 Range/Units 05:13 Urine Color Yellow Urine Appearance Clear (Clear) Urine pH 6.0 (4.5-7.5) Ur Specific [place] 1.036 H (1.000-1.030) Urine Protein 1+ H (Negative) Urine Glucose (UA) 3+ H (Negative) Diagnostic Findings Chest CTA 12/10/20 02:31 CT ANGIOGRAPHY OF THE CHEST, PULMONARY EMBOLUS PROTOCOL CLINICAL HISTORY: Dyspnea. COMPARISON STUDY: Chest radiograph December 10, 2020. TECHNIQUE: Following IV administration of 118 mL of Optiray, helical axial images of the chest were obtained utilizing the pulmonary embolus protocol. Maximal intensity projections and sagittal and coronal reformats were viewed on an independent 3D workstation. IV contrast was administered without complication. Automated exposure control was utilized for the study. A dose lowering technique was utilized adhering to the principles of ALARA. CT DOSE: 482.84 mGy.cm FINDINGS: This exam is significantly compromised by respiratory motion artifact and suboptimal opacification. No central pulmonary emboli are identified. The size the heart is normal. There is no thoracic aortic dissection. There is moderate coronary artery calcification. No thoracic lymphadenopathy is present. Severe upper lobe predominant emphysema is present. There is no consolidation to suggest pneumonia. There are a few tiny lung nodules which measure up to 3 mm. The largest is within the right upper lobe on image 237 of [id number]. No pneumothorax or pleural effusion is present. Visualized portions of the bony thorax are unremarkable. IMPRESSION: 1. No central pulmonary emboli. Remainder of pulmonary arteries suboptimally assessed due to artifact on this exam. 2. Severe emphysema. 3. A few tiny low suspicion pulmonary nodules. Follow-up chest CT in 6 months to ensure stability is recommended. ACT 112: Positive. There are findings on this exam that require communication between the performing entity and the patient following Patient Test Result Information Act ([place] Act 112) guidelines. Electronically signed by: Chun Garcia M.D. 12/10/2020 8:21 AM Chest X-Ray 12/10/20 02:31 XR chest 1V portable CLINICAL HISTORY: Dyspnea COMPARISON STUDY: Chest radiograph September 11, 2020. FINDINGS: Lung volumes are normal. Lungs are clear. There is no pneumothorax or pleural effusion. Cardiac size is normal. Mediastinal contours are normal. There is no evidence for pulmonary edema. Emphysema is noted. Lower lung interstitial prominence is unchanged. This is chronic. IMPRESSION: No acute cardiopulmonary findings. Emphysema. ACT 112: Negative or not required by law. Electronically signed by: Chun Garcia M.D. 12/10/2020 8:40 AM Code Status & VTE Plan VTE Prophylaxis Plan VTE Prophylaxis will be ordered: Yes Supervising Physician Co-Signing Physician Notes Pt seen and examined by me, care coordinated w/ Grace Mcguire, pls refer to her note above for further detail. 50 y/o F w/ DM type II, COPD, SHAINA, hypothyroidism, who presents cough and shortness of breath, secondary to COPD exacerbation. She has been feeling sick for the past 4 days, was started on azithromycin and prednisone as outpt. In the ED, found hypoxic with ambulation to 85%. CTA chest negative for PE and infiltrate.Imaging significant for emphysema. Received solumedrol 60mg IV and nebulizer treatment x 2 and continues to have significant wheezing and shortness of breath. Currently sitting up in bed, alert oriented answering questions appropriately. She is mildly tachycardic and has significant diffuse expiratory wheezes on physical exam. Abdomen is soft, nontender , nondistended. No LE edema, Skin is warm, dry. Cont. steroid, nebs, Abx and closely monitor. Pt can bring in her home trilogy machine. Halina Mauro MD
[2020-12-10] MEDS: INSULIN ASPART 100 UNITS/ML 3 ML PEN SC SCH ×2 (20:28→20:43)
[2020-12-10] MEDS: ENOXAPARIN INJ 40 MG/0.4 ML SYR SQ SCH (20:34)
[2020-12-10] MEDS: cefTRIAXone SODIUM 2,000 MG in DEXTROSE 5% 50 ML IV SCH (20:35)
[2020-12-10] MEDS: methylPREDNISolone 40 MG in SYRINGE 0 ML IV SCH (20:35)
[2020-12-10] MEDS: DOXYCYCLINE HYCLATE 100 MG in DEXTROSE 5% 100 ML IV SCH (20:36)
[2020-12-10] MEDS: FENOFIBRATE NANOCRYSTALLIZED 145 MG TABLET PO SCH (20:36)
[2020-12-10] MEDS: MONTELUKAST SODIUM 10 MG TABLET PO SCH (20:36)
[2020-12-10] MEDS: ACETAMINOPHEN 325 MG TAB PO PRN (20:37)
[2020-12-10] MEDS: INSULIN GLARGINE SOLOSTAR 100 UNITS/ML 3 ML PEN SC SCH (20:41)
[2020-12-10] MEDS: FLUTICASONE PROPIONATE NA SPR 16 GM BTL SCH (23:34)
[2020-12-11] MEDS: ALBUT/IPRATROP 3MG/0.5MG NEB 3 ML VIAL NEB SCH ×6 (02:07→22:50)
[2020-12-11] MEDS: methylPREDNISolone 40 MG in SYRINGE 0 ML IV SCH ×3 (02:21→18:29)
[2020-12-11] MEDS: LEVOTHYROXINE SODIUM 125 MCG TABLET PO SCH (06:11)
[2020-12-11] MEDS: DOXYCYCLINE HYCLATE 100 MG in DEXTROSE 5% 100 ML IV SCH ×2 (06:19→18:31)
[2020-12-11 06:41] LABS: Hematocrit (blood only) 38.3 % (37-47); Mean Corpuscular Hemoglobin 26.6 pg (25-34); Mean Corpuscular Hgb Conc 31.3 g/dL (32-36); Mean Corpuscular Volume 84.9 fL (80-100); Mean Platelet Volume 11.2 fL (7.4-10.4); Platelet Count 450 K/uL (130-400); RDW Coefficient of Variation 14.4 % (11.5-14.5); Red Blood Count 4.51 M/uL (4.2-5.4)
[2020-12-11 07:12] LABS: Phosphorus 3.9 mg/dl (2.5-4.9)
[2020-12-11 07:19] LABS: BUN Creatinine Ratio 20.3 (10-20); Calcium 9.4 mg/dl (8.5-10.1); Creatinine Clr Calc Pharmacy 91.5 ml/min; Est GFR (African American) 101.2 ml/min; Est GFR (Non-African American) 87.3 ml/min; Potassium 4.4 mmol/L (3.5-5.1)
--- NOTE | 2020-12-11 08:30 | Hospitalist Progress Note ---
Date of Service December 11, 2020 Assessment & Plan (1) COPD exacerbation: (2) Acute respiratory failure with hypoxia: Plan: -patient presenting from home with reports of worsening shortness of breath and cough x 4 days despite use of prednisone and z-pack -in the ED, hypoxic on room air with ambulation to 85%, currently on 2L -CTA chest negative for PE and infiltrate -WBC 18K - recent steroid use likely contributing -s/p solumedrol 60mg IV in the ED, continue with 40mg IV q8h -empiric ceftriaxone and doxy -flutter valve, IS, nebs -on Trilogy HS at home - can bring from home -continue routine home inhalers and Daliresp (3) HTN (hypertension): Plan: -continue Lisinopril (4) DM2 (diabetes mellitus, type 2): Plan: -hgb a1c 6.8 08/2020 -Lantus/Novolog (5) Hypothyroidism: Plan: -continue levothyroxine (6) DVT prophylaxis: Plan: -SQ Lovenox Admission and Anticipated Discharge Date Admission Date: December 10, 2020 Subjective Pt seen in follow up of shortness of breath, COPD exacerbation Currently sitting up in bed, says she does not feel much better Very short of breath w/ minimal exertion Daughter at the bedside Pt denies fever, chills, chest pain, abd. pain, n/v Review of Systems Review of Systems: All systems reviewed & are unremarkable except as noted in Subjective Physical Exam Physical Exam: Constitutional: WD/WN, chronically + ill appearing Eyes: PERRL, EOMI, conjunctivae normal, anicteric sclerae ENMT: external ear and nose normal, oropharynx normal Respiratory: no respiratory distress, + diffuse expiratory wheezes Cardiovascular: + mildly tachycardic Vessels: normal peripheral pulses Extremities: no edema Gastrointestinal (Abdomen): normal bowel sounds, soft, nontender Musculoskeletal: extremities motor strength 5/5 Skin: no rashes, warm and dry Neurologic: PERRL, EOMI, no face palsy, no dysarthria Psychiatric: A+Ox3, euthymic affect Results & Data Results & Data ([facility]) Vital Signs (Past 12 Hours) Vital Signs Temp Pulse Pulse Pulse Resp BP Pulse Ox 12/11/20 08:07 36.5 C 105 H 16 125/79 93 12/11/20 07:32 85 23 98 10/18/21 02:08 85 19 98 12/11/20 02:07 85 19 98 12/10/20 23:14 36.2 C L 109 H 16 132/83 97 12/10/20 22:22 113 H 22 97 12/10/20 22:08 111 H 24 97 Laboratory Results 12/11/20 12/11/20 12/11/20 Range/Units 08:27 06:17 06:17 WBC (4.8-10.8) K/uL RBC (4.2-5.4) M/uL Hgb (12.0-16.0) g/dL Hct (37-47) % MCV (80-100) fL MCH (25-34) pg MCHC (32-36) g/dL RDW Std Deviation (36.4-46.3) fL RDW Coeff of Dinah (11.5-14.5) % Plt Count (130-400) K/uL MPV (7.4-10.4) fL ABG pH (7.35-7.45) ABG pCO2 (35-46) mmHg ABG pO2 (80-95) mmHg ABG HCO3 (19-24) mmol/L ABG O2 Saturation (90-95) % ABG Base Excess (-9-1.8) mEq/L Ananth Test (Pos) Barometric Pressure mm/Hg Oxygen Given Sodium 138 (136-145) mmol/L Potassium 4.4 D (3.5-5.1) mmol/L Chloride 105 (98-107) mmol/L Carbon Dioxide 27 (21-32) mmol/L Anion Gap 6.0 (3-11) BUN 16 (7-18) mg/dl Creatinine 0.79 (0.6-1.2) mg/dl Est Cr Clr Drug Dosing 91.5 ml/min Est GFR ( Amer) 101.2 ml/min Est GFR (Non-Af Amer) 87.3 ml/min BUN/Creatinine Ratio 20.3 H (10-20) Glucose 215 H (70-99) mg/dl POC Glucose 240 H (70-99) mg/dl Calcium 9.4 (8.5-10.1) mg/dl Phosphorus 3.9 (2.5-4.9) mg/dl Magnesium 2.0 (1.8-2.4) mg/dl COVID-19 Eval Order SARS-CoV-2 (PCR) (Negative) 12/11/20 12/10/20 12/10/20 Range/Units 06:17 Unknown Unknown WBC 15.80 H (4.8-10.8) K/uL RBC 4.51 (4.2-5.4) M/uL Hgb 12.0 (12.0-16.0) g/dL Hct 38.3 (37-47) % MCV 84.9 (80-100) fL MCH 26.6 (25-34) pg MCHC 31.3 L (32-36) g/dL RDW Std Deviation 45.0 (36.4-46.3) fL RDW Coeff of Dinah 14.4 (11.5-14.5) % Plt Count 450 H (130-400) K/uL MPV 11.2 H (7.4-10.4) fL ABG pH (7.35-7.45) ABG pCO2 (35-46) mmHg ABG pO2 (80-95) mmHg ABG HCO3 (19-24) mmol/L ABG O2 Saturation (90-95) % ABG Base Excess (-9-1.8) mEq/L Ananth Test (Pos) Barometric Pressure mm/Hg Oxygen Given Sodium (136-145) mmol/L Potassium (3.5-5.1) mmol/L Chloride (98-107) mmol/L Carbon Dioxide (21-32) mmol/L Anion Gap (3-11) BUN (7-18) mg/dl Creatinine (0.6-1.2) mg/dl Est Cr Clr Drug Dosing ml/min Est GFR ( Amer) ml/min Est GFR (Non-Af Amer) ml/min BUN/Creatinine Ratio (10-20) Glucose (70-99) mg/dl POC Glucose (70-99) mg/dl Calcium (8.5-10.1) mg/dl Phosphorus (2.5-4.9) mg/dl Magnesium (1.8-2.4) mg/dl COVID-19 Eval Order Covid19 at [facility] SARS-CoV-2 (PCR) NEGATIVE (Negative) 12/10/20 12/10/20 Range/Units 19:38 14:46 WBC (4.8-10.8) K/uL RBC (4.2-5.4) M/uL Hgb (12.0-16.0) g/dL Hct (37-47) % MCV (80-100) fL MCH (25-34) pg MCHC (32-36) g/dL RDW Std Deviation (36.4-46.3) fL RDW Coeff of Dinah (11.5-14.5) % Plt Count (130-400) K/uL MPV (7.4-10.4) fL ABG pH 7.38 (7.35-7.45) ABG pCO2 40 (35-46) mmHg ABG pO2 103 H (80-95) mmHg ABG HCO3 23 (19-24) mmol/L ABG O2 Saturation 97.7 H (90-95) % ABG Base Excess -2.1 (-9-1.8) mEq/L Ananth Test Pos (Pos) Barometric Pressure 729.2 mm/Hg Oxygen Given FLOW RATE 3 Sodium (136-145) mmol/L Potassium (3.5-5.1) mmol/L Chloride (98-107) mmol/L Carbon Dioxide (21-32) mmol/L Anion Gap (3-11) BUN (7-18) mg/dl Creatinine (0.6-1.2) mg/dl Est Cr Clr Drug Dosing ml/min Est GFR ( Amer) ml/min Est GFR (Non-Af Amer) ml/min BUN/Creatinine Ratio (10-20) Glucose (70-99) mg/dl POC Glucose 115 H (70-99) mg/dl Calcium (8.5-10.1) mg/dl Phosphorus (2.5-4.9) mg/dl Magnesium (1.8-2.4) mg/dl COVID-19 Eval Order SARS-CoV-2 (PCR) (Negative)
[2020-12-11] MEDS: UMECLIDINIUM/VILANTEROL 62.5/25MCG 7 PUFFS/INHALER INH SCH (08:49)
[2020-12-11] MEDS: FLUTICASONE PROPIONATE NA SPR 16 GM BTL SCH (08:50)
[2020-12-11] MEDS: PANTOprazole 40 MG TAB PO SCH (08:50)
[2020-12-11] MEDS: FLUTICASONE FUROATE 100MCG 14 PUFFS/INHALER INH SCH (08:50)
[2020-12-11] MEDS: lisinopril 10 MG TAB PO SCH (08:50)
[2020-12-11] MEDS: ATORVASTATIN 20 MG TAB PO SCH (08:50)
[2020-12-11] MEDS: ROFLUMILAST 500 MCG TAB PO SCH (08:50)
[2020-12-11] MEDS: CITALOPRAM 20 MG TAB PO SCH (08:50)
[2020-12-11] MEDS: INSULIN ASPART 100 UNITS/ML 3 ML PEN SC SCH ×4 (08:53→20:51)
[2020-12-11] MEDS ORDERED: NON-FORMULARY MEDICATION (Fluticasone-Umeclidin-Vilanter [Trelegy Ellipta] 100-62.5-25 mcg INH SCH (09:00)
--- NOTE | 2020-12-11 16:42 | Electrocardiogram Report ---
Test Reason : Blood Pressure : / mmHG Vent. Rate : 093 BPM Atrial Rate : 093 BPM P-R Int : 124 ms QRS Dur : 078 ms QT Int : 372 ms P-R-T Axes : 079 061 061 degrees QTc Int : 462 ms Poor data quality, interpretation may be adversely affected Normal sinus rhythm Normal ECG When compared with ECG of 01-SEP-2020 17:46, No significant change was found Confirmed by Khang Arellano ([id number]) on 12/11/2020 4:42:00 PM Referred By: REFERRED SELF Confirmed By:Khang Arellano
[2020-12-11] MEDS: ENOXAPARIN INJ 40 MG/0.4 ML SYR SQ SCH (18:29)
[2020-12-11] MEDS: cefTRIAXone SODIUM 2,000 MG in DEXTROSE 5% 50 ML IV SCH (18:30)
[2020-12-11] MEDS: MONTELUKAST SODIUM 10 MG TABLET PO SCH (20:34)
[2020-12-11] MEDS: FENOFIBRATE NANOCRYSTALLIZED 145 MG TABLET PO SCH (20:34)
[2020-12-11] MEDS: INSULIN GLARGINE SOLOSTAR 100 UNITS/ML 3 ML PEN SC SCH (20:51)
[2020-12-12] MEDS: methylPREDNISolone 40 MG in SYRINGE 0 ML IV SCH ×3 (02:01→18:21)
[2020-12-12] MEDS: ALBUT/IPRATROP 3MG/0.5MG NEB 3 ML VIAL NEB SCH ×4 (03:39→14:50)
[2020-12-12] MEDS: LEVOTHYROXINE SODIUM 125 MCG TABLET PO SCH (06:03)
[2020-12-12] MEDS: DOXYCYCLINE HYCLATE 100 MG in DEXTROSE 5% 100 ML IV SCH ×2 (06:04→20:50)
[2020-12-12 06:39] LABS: Hematocrit (blood only) 38.2 % (37-47); Mean Corpuscular Hemoglobin 26.8 pg (25-34); Mean Corpuscular Hgb Conc 31.4 g/dL (32-36); Mean Corpuscular Volume 85.3 fL (80-100); Mean Platelet Volume 11.5 fL (7.4-10.4); Platelet Count 434 K/uL (130-400); RDW Coefficient of Variation 14.1 % (11.5-14.5); RDW Standard Deviation 44.2 fL (36.4-46.3); Red Blood Count 4.48 M/uL (4.2-5.4); White Blood Count 15.78 K/uL (4.8-10.8)
[2020-12-12 07:16] LABS: BUN Creatinine Ratio 16.5 (10-20); Calcium 9.7 mg/dl (8.5-10.1); Creatinine Clr Calc Pharmacy 93.8 ml/min; Est GFR (African American) 104.3 ml/min; Magnesium 1.9 mg/dl (1.8-2.4); Potassium 3.8 mmol/L (3.5-5.1)
[2020-12-12 07:24] LABS: Phosphorus 4.4 mg/dl (2.5-4.9)
[2020-12-12] MEDS: ACETAMINOPHEN 325 MG TAB PO PRN (08:01)
[2020-12-12] MEDS: FLUTICASONE PROPIONATE NA SPR 16 GM BTL SCH (08:02)
[2020-12-12] MEDS: CITALOPRAM 20 MG TAB PO SCH (08:55)
[2020-12-12] MEDS: ATORVASTATIN 20 MG TAB PO SCH (08:55)
[2020-12-12] MEDS: ROFLUMILAST 500 MCG TAB PO SCH (08:56)
[2020-12-12] MEDS: lisinopril 10 MG TAB PO SCH (08:56)
[2020-12-12] MEDS: PANTOprazole 40 MG TAB PO SCH (08:56)
[2020-12-12] MEDS: FLUTICASONE FUROATE 100MCG 14 PUFFS/INHALER INH SCH (08:56)
[2020-12-12] MEDS: INSULIN ASPART 100 UNITS/ML 3 ML PEN SC SCH ×4 (08:57→20:53)
[2020-12-12] MEDS: UMECLIDINIUM/VILANTEROL 62.5/25MCG 7 PUFFS/INHALER INH SCH (08:57)
[2020-12-12] MEDS ORDERED: POTASSIUM CHLORIDE CRTAB 20 MEQ TABCR PO STA (16:21)
--- NOTE | 2020-12-12 16:23 | Hospitalist Progress Note ---
Date of Service December 12, 2020 Assessment & Plan (1) COPD exacerbation: (2) Acute respiratory failure with hypoxia: Plan: -patient presenting from home with reports of worsening shortness of breath and cough x 4 days despite use of prednisone and z-pack -in the ED, hypoxic on room air with ambulation to 85%, currently on 2L -CTA chest negative for PE and infiltrate -WBC 18K - recent steroid use likely contributing -s/p solumedrol 60mg IV in the ED, continue with 40mg IV q8h -empiric ceftriaxone and doxy -flutter valve, IS, nebs -on Trilogy HS at home - CPAP ordered -continue routine home inhalers and Daliresp Current Tobacco use - nicotine patch ordered (3) HTN (hypertension): Plan: -continue Lisinopril (4) DM2 (diabetes mellitus, type 2): Plan: -hgb a1c 6.8 08/2020 -Lantus/Novolog (5) Hypothyroidism: Plan: -continue levothyroxine (6) DVT prophylaxis: Plan: -SQ Lovenox Admission and Anticipated Discharge Date Admission Date: December 10, 2020 Subjective Pt seen in follow up of shortness of breath, COPD exacerbation Currently sitting up in bed, says she is still having difficulty breathing but was able to ambulate to bathroom Tachycardic and wants to slow down on nebs d/t tachycardia Pt denies fever, chills, chest pain, abd. pain, n/v Review of Systems Review of Systems: All systems reviewed & are unremarkable except as noted in Subjective Physical Exam Physical Exam: Constitutional: WD/WN, chronically + ill appearing Eyes: PERRL, EOMI, conjunctivae normal, anicteric sclerae ENMT: external ear and nose normal, oropharynx normal Respiratory: no respiratory distress, + diffuse expiratory wheezes Cardiovascular: + mildly tachycardic Vessels: normal peripheral pulses Extremities: no edema Gastrointestinal (Abdomen): normal bowel sounds, soft, nontender Musculoskeletal: extremities motor strength 5/5 Skin: no rashes, warm and dry Neurologic: PERRL, EOMI, no face palsy, no dysarthria Psychiatric: A+Ox3, euthymic affect Results & Data Results & Data ([facility]) Vital Signs (Past 12 Hours) Vital Signs Temp Pulse Resp BP Pulse Ox 12/12/20 15:40 36.6 C 115 H 16 127/88 90 12/12/20 14:51 78 18 94 12/12/20 11:11 59 L 19 94 12/12/20 07:56 36.5 C 51 L 16 156/82 H 91 12/12/20 07:08 77 18 91 Laboratory Results 12/12/20 12/12/20 12/12/20 Range/Units 11:59 08:05 05:30 WBC (4.8-10.8) K/uL RBC (4.2-5.4) M/uL Hgb (12.0-16.0) g/dL Hct (37-47) % MCV (80-100) fL MCH (25-34) pg MCHC (32-36) g/dL RDW Std Deviation (36.4-46.3) fL RDW Coeff of Dinah (11.5-14.5) % Plt Count (130-400) K/uL MPV (7.4-10.4) fL Sodium 138 (136-145) mmol/L Potassium 3.8 (3.5-5.1) mmol/L Chloride 103 (98-107) mmol/L Carbon Dioxide 29 (21-32) mmol/L Anion Gap 6.0 (3-11) BUN 13 (7-18) mg/dl Creatinine 0.77 (0.6-1.2) mg/dl Est Cr Clr Drug Dosing 93.8 ml/min Est GFR ( Amer) 104.3 ml/min Est GFR (Non-Af Amer) 90.0 ml/min BUN/Creatinine Ratio 16.5 (10-20) Glucose 177 H (70-99) mg/dl POC Glucose 206 H 193 H (70-99) mg/dl Calcium 9.7 (8.5-10.1) mg/dl Phosphorus 4.4 (2.5-4.9) mg/dl Magnesium 1.9 (1.8-2.4) mg/dl 12/12/20 12/11/20 12/11/20 Range/Units 05:30 20:42 17:35 WBC 15.78 H (4.8-10.8) K/uL RBC 4.48 (4.2-5.4) M/uL Hgb 12.0 (12.0-16.0) g/dL Hct 38.2 (37-47) % MCV 85.3 (80-100) fL MCH 26.8 (25-34) pg MCHC 31.4 L (32-36) g/dL RDW Std Deviation 44.2 (36.4-46.3) fL RDW Coeff of Dinah 14.1 (11.5-14.5) % Plt Count 434 H (130-400) K/uL MPV 11.5 H (7.4-10.4) fL Sodium (136-145) mmol/L Potassium (3.5-5.1) mmol/L Chloride (98-107) mmol/L Carbon Dioxide (21-32) mmol/L Anion Gap (3-11) BUN (7-18) mg/dl Creatinine (0.6-1.2) mg/dl Est Cr Clr Drug Dosing ml/min Est GFR ( Amer) ml/min Est GFR (Non-Af Amer) ml/min BUN/Creatinine Ratio (10-20) Glucose (70-99) mg/dl POC Glucose 263 H 228 H (70-99) mg/dl Calcium (8.5-10.1) mg/dl Phosphorus (2.5-4.9) mg/dl Magnesium (1.8-2.4) mg/dl Medications Administered Current Inpatient Medications Acetaminophen (Acetaminophen 325 Mg Tab) 650 mg PO Q4H PRN PRN Reason: pain/fever Stop: 01/09/21 18:10 Last Admin: 12/12/20 08:01 Dose: 650 mg Documented by: Albuterol (Albut/Ipratrop 3mg/0.5mg Neb 3 Ml Vial) 3 ml NEB Q4R FINN Stop: 01/09/21 18:10 Last Admin: 12/12/20 14:50 Dose: 3 ml Documented by: Atorvastatin Calcium (Atorvastatin 20 Mg Tab) 20 mg PO DAILY FINN Stop: 01/10/21 08:59 Last Admin: 12/12/20 08:55 Dose: 20 mg Documented by: Cetirizine HCl (Cetirizine Hcl 10 Mg Tablet) 5 mg PO DAILY FINN Stop: 01/12/21 08:59 Citalopram Hydrobromide (Citalopram 20 Mg Tab) 20 mg PO DAILY FINN Stop: 01/10/21 08:59 Last Admin: 12/12/20 08:55 Dose: 20 mg Documented by: Dextrose (Dextrose 50% 50 Ml Syringe) 25 - 50 ml IV UD PRN; Protocol PRN Reason: Hypoglycemia Protocol Stop: 01/09/21 18:10 Enoxaparin Sodium (Enoxaparin Inj 40 Mg/0.4 Ml Syr) 40 mg SQ Q24H FINN Stop: 01/09/21 17:59 Last Admin: 12/11/20 18:29 Dose: 40 mg Documented by: Fenofibrate (Fenofibrate Nanocrystallized 145 Mg Tablet) 145 mg PO QPM FINN; Protocol Stop: 01/09/21 20:59 Last Admin: 12/11/20 20:34 Dose: 145 mg Documented by: Fluticasone Furoate (Fluticasone Furoate 100mcg 14 Puffs/Inhaler) 1 puffs INH DAILY FINN; Protocol Stop: 01/10/21 08:59 Last Admin: 12/12/20 08:56 Dose: 1 puffs Documented by: Fluticasone Propionate (Fluticasone Propionate Na Spr 16 Gm Btl) 2 sprays NA DAILY FINN Stop: 01/09/21 21:34 Last Admin: 12/12/20 08:02 Dose: 2 sprays Documented by: Glucagon (Glucagon For Inj 1 Mg Vial) 1 mg SQ UD PRN; Protocol PRN Reason: Hypoglycemia Protocol Stop: 01/09/21 18:10 Glucose (Glucose 10 Tabs/Tube) 4 - 8 tabs PO UD PRN; Protocol PRN Reason: Hypoglycemia Protocol Stop: 01/09/21 18:10 Glucose (Glucose 40% Gel 15 Gm Tube) 15 - 30 gm PO UD PRN; Protocol PRN Reason: Hypoglycemia Protocol Stop: 01/09/21 18:10 Methylprednisolone 40 mg/ (Syringe) 0.64 mls @ 1.5 mls/min IV Q8H FINN Stop: 01/09/21 18:14 Last Admin: 12/12/20 10:36 Dose: 1.5 mls/min Documented by: Ceftriaxone Sodium 2,000 mg/ (Dextrose) 70 mls @ 140 mls/hr IV Q24H FINN; Protocol Stop: 12/17/20 18:59 Last Infusion: 12/11/20 19:20 Dose: Infused Documented by: Doxycycline Hyclate 100 mg/ (Dextrose) 110 mls @ 50 mls/hr IV Q12H FINN Stop: 12/17/20 18:59 Last Infusion: 12/12/20 08:18 Dose: Infused Documented by: Insulin Aspart (Insulin Aspart 100 Units/Ml 3 Ml Pen) 0 units SC ACHS FINN Stop: 01/09/21 18:29 Last Admin: 12/12/20 13:20 Dose: 5 units Documented by: Insulin Glargine (Insulin Glargine Solostar 100 Units/Ml 3 Ml Pen) 15 units SC HS FINN Stop: 01/09/21 20:59 Last Admin: 12/11/20 20:51 Dose: 15 units Documented by: Levothyroxine Sodium (Levothyroxine Sodium 125 Mcg Tablet) 125 mcg PO DAILYBB FINN Stop: 01/10/21 06:29 Last Admin: 12/12/20 06:03 Dose: 125 mcg Documented by: Lisinopril (Lisinopril 10 Mg Tab) 10 mg PO QAM FINN Stop: 01/10/21 08:59 Last Admin: 12/12/20 08:56 Dose: 10 mg Documented by: Miscellaneous (Carbohydrates For Hypoglycemia ) 15 - 30 gm PO UD PRN PRN Reason: Hypoglycemia Protocol Stop: 01/09/21 18:10 Montelukast Sodium (Montelukast Sodium 10 Mg Tablet) 10 mg PO QPM FINN Stop: 01/09/21 20:59 Last Admin: 12/11/20 20:34 Dose: 10 mg Documented by: Ondansetron HCl (Ondansetron Inj 2 Mg/Ml 2 Ml Vial) 4 mg IV Q6H PRN PRN Reason: Nausea Stop: 01/09/21 18:10 Pantoprazole Sodium (Pantoprazole 40 Mg Tab) 40 mg PO DAILY FINN Stop: 01/10/21 08:59 Last Admin: 12/12/20 08:56 Dose: 40 mg Documented by: Potassium Chloride (Potassium Chloride Crtab 20 Meq Tabcr) 20 meq PO NOW STA Stop: 12/12/20 16:22 Roflumilast (Roflumilast 500 Mcg Tab) 500 mcg PO DAILY FINN Stop: 01/10/21 08:59 Last Admin: 12/12/20 08:56 Dose: 500 mcg Documented by: Umeclidinium/Vilanterol (Umeclidinium/Vilanterol 62.5/25mcg 7 Puffs/Inhaler) 1 puffs INH DAILY FINN; Protocol Stop: 01/10/21 08:59 Last Admin: 12/12/20 08:57 Dose: 1 puffs Documented by:
[2020-12-12] MEDS ORDERED: LEVALBUTEROL HCL 1.25 MG/3 ML NEB NEB PRN (17:55)
[2020-12-12] MEDS: cefTRIAXone SODIUM 2,000 MG in DEXTROSE 5% 50 ML IV SCH (18:20)
[2020-12-12] MEDS: ENOXAPARIN INJ 40 MG/0.4 ML SYR SQ SCH (18:23)
[2020-12-12] MEDS: FENOFIBRATE NANOCRYSTALLIZED 145 MG TABLET PO SCH (20:52)
[2020-12-12] MEDS: MONTELUKAST SODIUM 10 MG TABLET PO SCH (20:52)
[2020-12-12] MEDS: INSULIN GLARGINE SOLOSTAR 100 UNITS/ML 3 ML PEN SC SCH (20:52)
[2020-12-13] MEDS: methylPREDNISolone 40 MG in SYRINGE 0 ML IV SCH ×3 (02:23→12:18)
[2020-12-13 05:47] LABS: Hematocrit (blood only) 41.6 % (37-47); Hemoglobin 13.1 g/dL (12.0-16.0); Mean Corpuscular Hemoglobin 26.8 pg (25-34); Mean Corpuscular Hgb Conc 31.5 g/dL (32-36); Mean Corpuscular Volume 85.1 fL (80-100); Mean Platelet Volume 11.2 fL (7.4-10.4); Platelet Count 472 K/uL (130-400); RDW Coefficient of Variation 14.3 % (11.5-14.5); RDW Standard Deviation 44.2 fL (36.4-46.3); Red Blood Count 4.89 M/uL (4.2-5.4); White Blood Count 16.14 K/uL (4.8-10.8)
[2020-12-13] MEDS: LEVOTHYROXINE SODIUM 125 MCG TABLET PO SCH (06:02)
[2020-12-13 06:11] LABS: BUN Creatinine Ratio 18.6 (10-20); Calcium 9.2 mg/dl (8.5-10.1); Creatinine Clr Calc Pharmacy 90.3 ml/min; Est GFR (African American) 99.6 ml/min; Magnesium 1.8 mg/dl (1.8-2.4); Potassium 3.9 mmol/L (3.5-5.1)
[2020-12-13] MEDS: DOXYCYCLINE HYCLATE 100 MG in DEXTROSE 5% 100 ML IV SCH ×2 (08:08→20:24)
[2020-12-13] MEDS: ATORVASTATIN 20 MG TAB PO SCH (09:32)
[2020-12-13] MEDS: CETIRIZINE HCL 10 MG TABLET PO SCH (09:32)
[2020-12-13] MEDS: UMECLIDINIUM/VILANTEROL 62.5/25MCG 7 PUFFS/INHALER INH SCH (09:33)
[2020-12-13] MEDS: ROFLUMILAST 500 MCG TAB PO SCH (09:33)
[2020-12-13] MEDS: PANTOprazole 40 MG TAB PO SCH (09:33)
[2020-12-13] MEDS: CITALOPRAM 20 MG TAB PO SCH (09:33)
[2020-12-13] MEDS: lisinopril 10 MG TAB PO SCH (09:33)
[2020-12-13] MEDS: FLUTICASONE FUROATE 100MCG 14 PUFFS/INHALER INH SCH (09:33)
[2020-12-13] MEDS: FLUTICASONE PROPIONATE NA SPR 16 GM BTL SCH (09:33)
[2020-12-13] MEDS: INSULIN ASPART 100 UNITS/ML 3 ML PEN SC SCH ×4 (09:56→20:41)
[2020-12-13] MEDS: NICOTINE 14 MG/24 HR PATCH TD SCH (10:34)
--- NOTE | 2020-12-13 15:22 | Hospitalist Progress Note ---
Date of Service December 13, 2020 Assessment & Plan (1) COPD exacerbation: (2) Acute respiratory failure with hypoxia: Plan: -patient presenting from home with reports of worsening shortness of breath and cough x 4 days despite use of prednisone and z-pack -in the ED, hypoxic on room air with ambulation to 85%, currently on 2L -CTA chest negative for PE and infiltrate -WBC 18K - recent steroid use likely contributing -Discontinue Solu-Medrol and start prednisone 40 mg tomorrow -empiric ceftriaxone and doxy -flutter valve, IS, nebs -on Trilogy HS at home - CPAP ordered -continue routine home inhalers and Daliresp Current Tobacco use - nicotine patch ordered (3) HTN (hypertension): Plan: -continue Lisinopril (4) DM2 (diabetes mellitus, type 2): Plan: -hgb a1c 6.8 08/2020 -Lantus/Novolog (5) Hypothyroidism: Plan: -continue levothyroxine (6) DVT prophylaxis: Plan: -SQ Lovenox Admission and Anticipated Discharge Date Admission Date: December 10, 2020 Subjective Doing okay this morning. Was on 2 L of nasal cannula. Denies any chest pain but does report some shortness of breath that is not completely improved for palpitations with a breathing treatment. Review of Systems Review of Systems: All systems reviewed & are unremarkable except as noted in HPI & below Physical Exam Physical Exam: General: A&Ox3 HENT: NCAT, MMM, EOMI Eyes: PERRLA Neck: Supple, normal range of motion CVS: normal rate and rhythm Resp: b/l good breath sounds Abdomen: Soft, ND/NT Extremities: No c/c/e Neuro: face symmetric, absence of any gross focal deficits Skin: warm and dry, no rashes/lesions/errythema MSK: normal ROM, no joint swelling/erythema Results & Data Results & Data ([facility]) Vital Signs (Past 12 Hours) Vital Signs Temp Pulse Resp BP Pulse Ox 12/13/20 07:32 36.7 C 88 16 132/94 92
[2020-12-13] MEDS: ENOXAPARIN INJ 40 MG/0.4 ML SYR SQ SCH (17:49)
[2020-12-13] MEDS: cefTRIAXone SODIUM 2,000 MG in DEXTROSE 5% 50 ML IV SCH (19:45)
[2020-12-13] MEDS: MONTELUKAST SODIUM 10 MG TABLET PO SCH (20:41)
[2020-12-13] MEDS: FENOFIBRATE NANOCRYSTALLIZED 145 MG TABLET PO SCH (20:41)
[2020-12-13] MEDS: INSULIN GLARGINE SOLOSTAR 100 UNITS/ML 3 ML PEN SC SCH (20:43)
[2020-12-14] MEDS: DOXYCYCLINE HYCLATE 100 MG in DEXTROSE 5% 100 ML IV SCH ×2 (06:03→19:09)
[2020-12-14] MEDS: LEVOTHYROXINE SODIUM 125 MCG TABLET PO SCH (06:03)
[2020-12-14] MEDS: FLUTICASONE FUROATE 100MCG 14 PUFFS/INHALER INH SCH (08:54)
[2020-12-14] MEDS: UMECLIDINIUM/VILANTEROL 62.5/25MCG 7 PUFFS/INHALER INH SCH (08:54)
[2020-12-14] MEDS: NICOTINE 14 MG/24 HR PATCH TD SCH ×2 (08:55→09:04)
[2020-12-14] MEDS: ATORVASTATIN 20 MG TAB PO SCH (08:55)
[2020-12-14] MEDS: FLUTICASONE PROPIONATE NA SPR 16 GM BTL SCH (08:55)
[2020-12-14] MEDS: CETIRIZINE HCL 10 MG TABLET PO SCH (08:55)
[2020-12-14] MEDS: PANTOprazole 40 MG TAB PO SCH (08:56)
[2020-12-14] MEDS: INSULIN ASPART 100 UNITS/ML 3 ML PEN SC SCH ×4 (08:56→22:33)
[2020-12-14] MEDS: lisinopril 10 MG TAB PO SCH (08:56)
[2020-12-14] MEDS: CITALOPRAM 20 MG TAB PO SCH (08:56)
[2020-12-14] MEDS: predniSONE 20 MG TAB PO SCH (08:56)
[2020-12-14] MEDS: ROFLUMILAST 500 MCG TAB PO SCH (08:56)
[2020-12-14 11:31] LABS: Basophils # (auto) 0.01 K/uL (0-0.2); Basophils % (auto) 0.1 %; Eosinophils # (auto) 0.46 K/uL (0-0.5); Eosinophils % (auto) 2.6 %; Hematocrit (blood only) 44.3 % (37-47); Immature Granulocytes # (auto) 0.08 K/uL (0.00-0.02); Immature Granulocytes % (auto) 0.4 %; Lymphocytes # (auto) 2.16 K/uL (1.2-3.4); Mean Corpuscular Hemoglobin 26.6 pg (25-34); Mean Corpuscular Volume 84.2 fL (80-100); Mean Platelet Volume 10.8 fL (7.4-10.4); Monocytes # (auto) 1.81 K/uL (0.11-0.59); Monocytes % (auto) 10.1 %; Neutrophils # (auto) 13.41 K/uL (1.4-6.5); Neutrophils % (auto) 74.8 %; Platelet Count 417 K/uL (130-400); RDW Coefficient of Variation 14.2 % (11.5-14.5); RDW Standard Deviation 43.6 fL (36.4-46.3); Red Blood Count 5.26 M/uL (4.2-5.4); White Blood Count 17.93 K/uL (4.8-10.8)
[2020-12-14 11:33] LABS: Mean Corpuscular Hgb Conc 31.6 g/dL (32-36)
[2020-12-14] MEDS: cefTRIAXone SODIUM 2,000 MG in DEXTROSE 5% 50 ML IV SCH (12:33)
--- NOTE | 2020-12-14 15:07 | Hospitalist Progress Note ---
Date of Service December 14, 2020 Assessment & Plan (1) COPD exacerbation: (2) Acute respiratory failure with hypoxia: Plan: -patient presenting from home with reports of worsening shortness of breath and cough x 4 days despite use of prednisone and z-pack -in the ED, hypoxic on room air with ambulation to 85%, currently on 2L -CTA chest negative for PE and infiltrate -WBC 17.9K - recent steroid use likely contributing -Discontinue Solu-Medrol and continue prednisone 40 mg daily -empiric ceftriaxone and doxy; completed 5 days -flutter valve, IS, nebs -on Trilogy HS at home - CPAP ordered -continue routine home inhalers and Daliresp Patient is stable on room air now. Over continues to have persistent wheezing and shortness of breath with ambulation. We will give 1 dose of Lasix 20 mg now. Current Tobacco use - nicotine patch ordered (3) HTN (hypertension): Plan: -continue Lisinopril (4) DM2 (diabetes mellitus, type 2): Plan: -hgb a1c 6.8 08/2020 -Lantus/Novolog (5) Hypothyroidism: Plan: -continue levothyroxine (6) DVT prophylaxis: Plan: -SQ Lovenox Admission and Anticipated Discharge Date Admission Date: December 10, 2020 Subjective Patient reports she is feeling better. Shortness of breath is better. Currently she is on room air. However, during ambulatory pulse ox patient was significantly short of breath and had to rest frequently. Continues to have persistent wheezing. Review of Systems Review of Systems: All systems reviewed & are unremarkable except as noted in HPI & below Physical Exam Physical Exam: General: A&Ox3 HENT: NCAT, MMM, EOMI Eyes: PERRLA Neck: Supple, normal range of motion CVS: normal rate and rhythm Resp: b/l expiratory wheezing pressure Abdomen: Soft, ND/NT Extremities: No c/c/e Neuro: face symmetric, absence of any gross focal deficits Skin: warm and dry, no rashes/lesions/errythema MSK: normal ROM, no joint swelling/erythema Results & Data Results & Data ([facility]) Vital Signs (Past 12 Hours) Vital Signs Temp Pulse Pulse Pulse Pulse Pulse Resp 12/14/20 14:27 36.3 C L 87 20 12/14/20 11:23 105 H 18 12/14/20 11:15 106 H 105 H 86 12/14/20 07:24 36.4 C L 69 16 Resp Resp Resp BP BP Pulse Ox Pulse Ox 12/14/20 14:27 113/78 93 12/14/20 11:23 92 12/14/20 11:15 20 20 18 89 L 12/14/20 07:24 117/77 95 Pulse Ox Pulse Ox 12/14/20 14:27 12/14/20 11:23 12/14/20 11:15 92 93 12/14/20 07:24
[2020-12-14] MEDS ORDERED: FUROSEMIDE 20 MG TAB PO ONE (16:00)
[2020-12-14] MEDS: ENOXAPARIN INJ 40 MG/0.4 ML SYR SQ SCH (18:11)
[2020-12-14] MEDS: INSULIN GLARGINE SOLOSTAR 100 UNITS/ML 3 ML PEN SC SCH (22:32)
[2020-12-14] MEDS: MONTELUKAST SODIUM 10 MG TABLET PO SCH (22:34)
[2020-12-14] MEDS: FENOFIBRATE NANOCRYSTALLIZED 145 MG TABLET PO SCH (22:35)
[2020-12-15] MEDS: LEVOTHYROXINE SODIUM 125 MCG TABLET PO SCH (05:35)
[2020-12-15] MEDS: AMOXICILLIN/CLAVULANATE 875 MG TAB PO SCH ×2 (07:52→17:30)
[2020-12-15] MEDS: FLUTICASONE PROPIONATE NA SPR 16 GM BTL SCH (07:52)
[2020-12-15] MEDS: lisinopril 10 MG TAB PO SCH (07:53)
[2020-12-15] MEDS: predniSONE 20 MG TAB PO SCH (07:53)
[2020-12-15] MEDS: CETIRIZINE HCL 10 MG TABLET PO SCH (07:53)
[2020-12-15] MEDS: CITALOPRAM 20 MG TAB PO SCH (07:53)
[2020-12-15] MEDS: ATORVASTATIN 20 MG TAB PO SCH (07:53)
[2020-12-15] MEDS: PANTOprazole 40 MG TAB PO SCH (07:54)
[2020-12-15] MEDS: ROFLUMILAST 500 MCG TAB PO SCH (07:54)
[2020-12-15] MEDS: FLUTICASONE FUROATE 100MCG 14 PUFFS/INHALER INH SCH (07:54)
[2020-12-15] MEDS: UMECLIDINIUM/VILANTEROL 62.5/25MCG 7 PUFFS/INHALER INH SCH (07:54)
[2020-12-15] MEDS: NICOTINE 14 MG/24 HR PATCH TD SCH (07:55)
[2020-12-15] MEDS: INSULIN ASPART 100 UNITS/ML 3 ML PEN SC SCH ×3 (09:13→17:29)
--- NOTE | 2020-12-15 16:50 | Discharge Summary ---
Date of Service December 15, 2020 Admission HPI Per Admitting Provider 50 year old female with PMH DM type II, COPD, SHAINA, hypothyroidism, and other problems listed below who presents to the ED with reports of cough and shortness of breath. Patient reports she has been feeling sick for the past 4 days. She called her yard clerk and was started on azithromycin and prednisone. She reports no improvement in her symptoms. She has shortness of breath at rest and with minimal exertion. She has had a cough productive for yellow/talavera sputum. Denies fever and chills. No chest pain. Denies lightheadedness, dizziness, diaphoresis, and syncopal events. No abdominal pain, nausea, vomiting, or diarrhea. Denies urinary symptoms. In the ED, the patient was hypoxic with ambulation to 85%. CTA chest negative for PE and infiltrate. She received solumedrol 60mg IV and nebulizer treatment x 2 and continues to have significant wheezing and shortness of breath. Principal Diagnosis COPD exacerbation Tobacco use Discharge Exam CONSTITUTIONAL: WNWD, vitals as above, generally well-appearing, NAD, speaking in full and complete sentences. EYES: normal conjunctivae, no scleral icterus ENT: external ear and nose normal, MMM NECK: trachea midline RESPIRATORY: clear to auscultation bilaterally, diminished breath sounds throughout, no crackles, rales or wheezes, normal respiratory effort CARDIOVASCULAR: regular rate and rhythm, S1 and 2 heard without murmurs, gallops or rubs, no JVD, no peripheral edema GASTROINTESTINAL: soft, nontender, ND, no guarding MUSCULOSKELETAL: strength 5/5 throughout, head is normocephalic and atraumatic, ambulating independently. SKIN: warm and dry NEUROLOGIC: CN 2-12 grossly intact, normal cognition, normal speech, no tremor, no gross focal deficits. PSYCHIATRIC: alert cooperative and oriented to person, place and time. Euthymic mood, makes good eye contact, language grossly intact, recent and remote memory grossly intact. Discharge Data Allergies Allergy/AdvReac Type Severity Reaction Status Date / Time Sulfa (Sulfonamide Allergy Intermediate RASH,SWELLI Verified 12/10/20 02:31 Antibiotics) NG Consultations 12/10/20 13:30 ED Decision to Admit Stat Ordered Studies Laboratory Results WBC 17.93 K/uL (4.8-10.8) H 12/14/20 11:24 RBC 5.26 M/uL (4.2-5.4) 12/14/20 11:24 Hgb 14.0 g/dL (12.0-16.0) 12/14/20 11:24 Hct 44.3 % (37-47) 12/14/20 11:24 MCV 84.2 fL (80-100) 12/14/20 11:24 MCH 26.6 pg (25-34) 12/14/20 11:24 MCHC 31.6 g/dL (32-36) L 12/14/20 11:24 RDW Std Deviation 43.6 fL (36.4-46.3) 12/14/20 11:24 RDW Coeff of Dinah 14.2 % (11.5-14.5) 12/14/20 11:24 Plt Count 417 K/uL (130-400) H 12/14/20 11:24 MPV 10.8 fL (7.4-10.4) H 12/14/20 11:24 Immature Gran % (Auto) 0.4 % 12/14/20 11:24 Neut % (Auto) 74.8 % 12/14/20 11:24 Lymph % (Auto) 12.0 % 12/14/20 11:24 [place] % (Auto) 10.1 % 12/14/20 11:24 Eos % (Auto) 2.6 % 12/14/20 11:24 Baso % (Auto) 0.1 % 12/14/20 11:24 Neut # (Auto) 13.41 K/uL (1.4-6.5) H 12/14/20 11:24 Lymph # (Auto) 2.16 K/uL (1.2-3.4) 12/14/20 11:24 [place] # (Auto) 1.81 K/uL (0.11-0.59) H 12/14/20 11:24 Eos # (Auto) 0.46 K/uL (0-0.5) 12/14/20 11:24 Baso # (Auto) 0.01 K/uL (0-0.2) 12/14/20 11:24 Immature Gran # (Auto) 0.08 K/uL (0.00-0.02) H 12/14/20 11:24 PT 10.3 Seconds (9.0-12.0) 12/10/20 02:10 INR 1.0 (0.9-1.1) 12/10/20 02:10 APTT 23.1 Seconds (21.0-31.0) 12/10/20 02:10 PTT Ratio 0.9 12/10/20 02:10 ABG pH 7.38 (7.35-7.45) 12/10/20 14:46 ABG pCO2 40 mmHg (35-46) 12/10/20 14:46 ABG pO2 103 mmHg (80-95) H 12/10/20 14:46 ABG HCO3 23 mmol/L (19-24) 12/10/20 14:46 ABG O2 Saturation 97.7 % (90-95) H 12/10/20 14:46 ABG Base Excess -2.1 mEq/L (-9-1.8) 12/10/20 14:46 Ananth Test Pos (Pos) 12/10/20 14:46 Barometric Pressure 729.2 mm/Hg 12/10/20 14:46 Oxygen Given FLOW RATE 3 12/10/20 14:46 Sodium 136 mmol/L (136-145) 12/13/20 05:16 Potassium 3.9 mmol/L (3.5-5.1) 12/13/20 05:16 Chloride 103 mmol/L (98-107) 12/13/20 05:16 Carbon Dioxide 33 mmol/L (21-32) H 12/13/20 05:16 Anion Gap 0 (3-11) L 12/13/20 05:16 BUN 15 mg/dl (7-18) 12/13/20 05:16 Creatinine 0.80 mg/dl (0.6-1.2) 12/13/20 05:16 Est Cr Clr Drug Dosing 90.3 ml/min 12/13/20 05:16 Est GFR ( Amer) 99.6 ml/min 12/13/20 05:16 Est GFR (Non-Af Amer) 86.0 ml/min 12/13/20 05:16 BUN/Creatinine Ratio 18.6 (10-20) 12/13/20 05:16 Glucose 157 mg/dl (70-99) H 12/13/20 05:16 POC Glucose 165 mg/dl (70-99) H 12/15/20 12:15 Calcium 9.2 mg/dl (8.5-10.1) 12/13/20 05:16 Phosphorus 4.4 mg/dl (2.5-4.9) 12/12/20 05:30 Magnesium 1.8 mg/dl (1.8-2.4) 12/13/20 05:16 Total Bilirubin 0.3 mg/dl (0.2-1) 12/10/20 02:10 AST 13 U/L (15-37) L 12/10/20 02:10 ALT 31 U/L (12-78) 12/10/20 02:10 Alkaline Phosphatase 77 U/L (45-117) 12/10/20 02:10 Troponin I < 0.015 ng/ml (0-0.045) 12/10/20 02:10 NT-Pro-B Natriuret Pep 23 pg/ml (0-900) 12/14/20 11:43 Total Protein 7.7 gm/dl (6.4-8.2) 12/10/20 02:10 Albumin 3.9 gm/dl (3.4-5.0) 12/10/20 02:10 Globulin 3.8 gm/dl (2.5-4.0) 12/10/20 02:10 Albumin/Globulin Ratio 1.0 (0.9-2) 12/10/20 02:10 Procalcitonin < 0.05 ng/ml (0-0.5) 12/13/20 05:16 Urine Color Yellow 12/10/20 05:13 Urine Appearance Clear (Clear) 12/10/20 05:13 Urine pH 6.0 (4.5-7.5) 12/10/20 05:13 Ur Specific [place] 1.036 (1.000-1.030) H 12/10/20 05:13 Urine Protein 1+ (Negative) H 12/10/20 05:13 Urine Glucose (UA) 3+ (Negative) H 12/10/20 05:13 Urine Ketones Negative (Negative) 12/10/20 05:13 Urine Blood Negative (Negative) 12/10/20 05:13 Urine Nitrite Negative (Negative) 12/10/20 05:13 Urine Bilirubin Negative (Negative) 12/10/20 05:13 Urine Urobilinogen Negative (Negative) 12/10/20 05:13 Ur Leukocyte Esterase Negative (Negative) 12/10/20 05:13 Urine WBC (Auto) 1-5 /hpf (0-5) 12/10/20 05:13 Urine RBC (Auto) 0-4 /hpf (0-4) 12/10/20 05:13 U Hyaline Cast (Auto) 1-5 /lpf (0-5) 12/10/20 05:13 U Epithel Cells (Auto) 20-30 /lpf (0-5) H 12/10/20 05:13 Urine Bacteria (Auto) Negative (Negative) 12/10/20 05:13 COVID-19 Eval Order Covid19 at [facility] 12/10/20 Unknown SARS-CoV-2 (PCR) NEGATIVE (Negative) 12/10/20 Unknown Impressions Chest CTA 12/10/20 02:31 CT ANGIOGRAPHY OF THE CHEST, PULMONARY EMBOLUS PROTOCOL CLINICAL HISTORY: Dyspnea. COMPARISON STUDY: Chest radiograph December 10, 2020. TECHNIQUE: Following IV administration of 118 mL of Optiray, helical axial images of the chest were obtained utilizing the pulmonary embolus protocol. Maximal intensity projections and sagittal and coronal reformats were viewed on an independent 3D workstation. IV contrast was administered without complication. Automated exposure control was utilized for the study. A dose lowering technique was utilized adhering to the principles of ALARA. CT DOSE: 482.84 mGy.cm FINDINGS: This exam is significantly compromised by respiratory motion artifact and suboptimal opacification. No central pulmonary emboli are identified. The size the heart is normal. There is no thoracic aortic dissection. There is moderate coronary artery calcification. No thoracic lymphadenopathy is present. Severe upper lobe predominant emphysema is present. There is no consolidation to suggest pneumonia. There are a few tiny lung nodules which measure up to 3 mm. The largest is within the right upper lobe on image 237 of [id number]. No pneumothorax or pleural effusion is present. Visualized portions of the bony thorax are unremarkable. IMPRESSION: 1. No central pulmonary emboli. Remainder of pulmonary arteries suboptimally assessed due to artifact on this exam. 2. Severe emphysema. 3. A few tiny low suspicion pulmonary nodules. Follow-up chest CT in 6 months to ensure stability is recommended. ACT 112: Positive. There are findings on this exam that require communication between the performing entity and the patient following Patient Test Result Information Act ([place] Act 112) guidelines. Electronically signed by: Chun Garcia M.D. 12/10/2020 8:21 AM Chest X-Ray 12/10/20 02:31 XR chest 1V portable CLINICAL HISTORY: Dyspnea COMPARISON STUDY: Chest radiograph September 11, 2020. FINDINGS: Lung volumes are normal. Lungs are clear. There is no pneumothorax or pleural effusion. Cardiac size is normal. Mediastinal contours are normal. There is no evidence for pulmonary edema. Emphysema is noted. Lower lung interstitial prominence is unchanged. This is chronic. IMPRESSION: No acute cardiopulmonary findings. Emphysema. ACT 112: Negative or not required by law. Electronically signed by: Chun Garcia M.D. 12/10/2020 8:40 AM Hospital Course (1) Acute respiratory failure with hypoxia: 2/2 COPD exacerbation, see below. (2) COPD exacerbation: Failed outpatient treatment with prednisone and azithromycin presenting to ER wtih acute shortness of breath. CTA chest negative for pulmonary embolus or infiltrate. She was started on nebulized bronchodilators and intravenous solumedrol. Doxycycline was administered. She improved and was transitioned for prednisone 40mg daily for two days prior to discharge. At time of discharge she was breathing at her baseline and symptoms were reportedly resolved. Hypoxia was resolved. She was counseled to quit smoking and declines any nicotine supplementation. She is in the contemplative phase. Completed 5 day course of doxycycline. (3) Pulmonary nodule: Follow-up chest CT in 6 months. This was relayed to her at time of discharge. Total Time Total Time Spent Total Time Spent (In Minutes): 60 Discharge Plan Discharge Items Patient Disposition: Home - Self-Care Reason For Visit: COPD EXACERBATION Discharge Diagnosis: COPD exacerbation Tobacco use Condition on Discharge: Good Activity: Resume your previous activity Non-emergency contact: Primary Care Provider Call non-emergency contact if: you have any medication questions and your symptoms worsen Follow-up/Referrals: MARY JO Perea [Other] (Date & Time 12/20/2020 11:00 AM Provider MARY JO Gorman Department Pulmonary Medicine, [facility] ) Sam Valdovinos MD [Primary Care Provider] - (Date & Time 12/21/2020 10:40 AM Provider Anneliese Lopez PA-C Department Family Medicine [facility] ) Diet: Regular and Carb Consistent or DM2 Addtl Attending Provider Instructions: Please take all medications as instructed on discharge list below. A few tiny low suspicion pulmonary nodules. Follow-up chest CT in 6 months to ensure stability is recommended. It is strongly recommended that you stay quit from smoking as this will improve your overall general health and breathing. It was a pleasure taking care of you! Please call if you have any questions or problems. You can reach a [facility] hospitalist on duty at [facility] 24 hours a day by calling [phone]. Take care of yourself. Jana Juárez, [place] Hospitalist Pending Studies at Discharge: No Stand-Alone Forms: [facility], Smoking Cessation Medications and DC Order Prescriptions: Continued cyclobenzaprine 10 mg tablet 10 mg PO DAILY PRN (Reason: Muscle Spasm) RF: 0 atorvastatin 20 mg tablet 20 mg PO DAILY RF: 0 citalopram 20 mg tablet 20 mg PO DAILY RF: 0 pantoprazole 40 mg tablet,delayed release (DR/EC) 40 mg PO DAILY RF: 0 lisinopril 10 mg tablet 10 mg PO QAM RF: 0 montelukast 10 mg tablet 10 mg PO QPM RF: 0 albuterol sulfate [Ventolin HFA] 90 mcg/actuation HFA aerosol inhaler 2 puff Inhalation Q4H PRN (Reason: Wheezing) RF: 0 fenofibrate 160 mg tablet 160 mg PO QPM RF: 0 Lantus Solostar U-100 Insulin 100 unit/mL (3 mL) Insulin Pen 15 units SC HS Qty: 15 RF: 2 (DME) pen needle, diabetic [Pen Needle] 32 gauge x 5/32" needle See Dose Instructions .ROUTE .MEDSUPPLY Qty: 100 RF: 1 terbinafine HCl 1 % cream 1 applic TOPICAL BID RF: 0 ipratropium-albuterol 0.5 mg-3 mg(2.5 mg base)/3 mL Solution For Nebulization 3 ml INHALATION QID RF: 0 levothyroxine 125 mcg Tablet 125 mcg PO DAILYBB RF: 0 levocetirizine [Xyzal] 5 mg Tablet 5 mg PO QPM RF: 0 Daliresp 500 mcg Tablet 500 mcg PO DAILY RF: 0 Trelegy Ellipta 100-62.5-25 mcg Blister With Device 1 inh INHALATION DAILY RF: 0 melatonin 5 mg Tablet 5 mg PO HS PRN (Reason: Sleep) RF: 0 Changed prednisone 10 mg tablet 20 mg PO DAILY Qty: 0 RF: 0 Discontinued azithromycin 250 mg tablet 250 mg PO DAILY RF: 0 Discharge Orders: Discharge Order (Routine); Ordered 12/15/20 Ordered By: Jana Brown/Other Patient Handouts: Long-Term Complications of Diabetes, Healthy Meals for Diabetes Admission Data Admit Date/Time: 12/10/20 14:02 Attending Provider: Jana Juárez Admit Provider: Vladimir Mauro Primary Care Provider: Sam Valdovinos Other Providers: Jana Juárez Other Interventions: Discharge Summary Assessment (RN) Last Done: 12/15/20 16:37
[2020-12-15] MEDS: ENOXAPARIN INJ 40 MG/0.4 ML SYR SQ SCH (17:30)
== END 2020-12-15 17:54 | disposition home or self-care (01) | DRG 190 ==
LOC: ED 02:00 → SUATTDRO 14:02 → 3N 14:02

== ENCOUNTER 2021-12-31 23:48 | Inpatient (IN) ==
[2022-01-01] MEDS ORDERED: ALBUT/IPRATROP 3MG/0.5MG NEB 3 ML VIAL INH STA (00:03)
--- NOTE | 2022-01-01 00:05 | Emergency Department Note ---
Impression & Plan Acute exacerbation of chronic obstructive pulmonary disease ADMIT ED Provider Note HPI: The patient is a 51-year-old female who presents the emergency department chief complaint of shortness of breath. Patient states that her shortness of breath has been worsening throughout the day today. She does have a history of COPD and wears 2 L of nasal cannula oxygen at night. Patient states that she was using her inhalers tonight without relief. She arrives via EMS with ongoing breathing treatment, she was given IV Solu-Medrol in route. On arrival the patient is tachypneic, she displays some moderate increased work of breathing, she is saturating at 98% currently on Oxymask with breathing treatment. ROS: -Pulmonary: Shortness of breath *10 point review systems was conducted and is otherwise negative unless stated above *Outpatient medications and allergy history reviewed PE: General: Alert HEENT: Normocephalic, trachea midline Eyes: Extraocular eye movement is intact, no scleral erythema Pulmonary: Diminished breath sounds bilaterally with moderate expiratory wheezing bilaterally and throughout Cardio: Regular rate and rhythm GI: Abdomen is soft, nontender : No suprapubic tenderness MSK: No evidence of trauma or malformation of the extremities, no edema Skin: No evidence of rash Neuro: Alert, no focal deficits Psychiatric: Cooperative monitoring specialist: - An order was placed for continuous cardiac monitoring - Patient was noted to be in sinus rhythm with a rate of 98 EKG: Rate: 106 Rhythm: Sinus tachycardia Intervals: Within normal limits ST changes: No ST elevation Time: 2356 Interventions provided in ED: -Continuous albuterol breathing Medical Decision Making: Patient presented to the emergency department with chief complaint of increased work of breathing, she has a history of COPD and wears 2 L nasal cannula oxygen at night. On my initial assessment the patient does have some moderate increased work of breathing, continuous nebulizer treatment was ordered. Chest x-ray does not show any obvious pneumonia per my interpretation, does show a pattern of emphysema. Lab work shows a chronic leukocytosis. Patient is currently on steroids which is also playing a role in her leukocytosis. Will obtain blood cultures, will hold on antibiotics at this time. My reassessment patient is still on continuous breathing treatment and her work of breathing is mildly improved but she still does have some wheezing. Oxygen saturation is 98%. Venous blood gas does show some hypercarbia with PCO2 of 57, mild acidosis with pH of 7.32, COVID-19 test is pending, I discussed the case with the on-call hospitalist, Dr. Evans, and the patient will be admitted to a telemetry bed for further management. * CRITICAL CARE TIME: (35 ) minutes -Time spent at the bedside and management of patient with COPD exacerbation requiring continuous breathing treatment for increased work of breathing with wheezing and hypoxia, discussion with other physicians and arrangement of admission. Diagnosis: 1. COPD exacerbation, with hypoxia 2. Leukocytosis, chronic Disposition: Admission Petey Quiroz DO Emergency Medicine Past Med/Surg History Medical History Anxiety COPD (chronic obstructive pulmonary disease) FLARE UP NOV 2020 , [facility]PITALIZED [facility] DM2 (diabetes mellitus, type 2) GERD (gastroesophageal reflux disease) HLD (hyperlipidemia) HTN (hypertension) Hypothyroidism SHAINA (obstructive sleep apnea) TRILIGY 100 Surgical History H/O colonoscopy "polyps x2, hyperplastic tissue repeat at age 50" H/O thyroidectomy H/O tubal ligation History of carpal tunnel surgery of right wrist History of cataract surgery RT Family History Mother Diabetes Father Hypertension Social History Smoking Status: Current every day smoker Tobacco Type: Cigarettes Second Hand Exposure: No; Hx Alcohol Use: No Hx Substance Use: No Preferred Language: Hebrew Communication Ability: Effective Shingle Packer Required: No Beliefs That Will Affect Care: None marital status: Current Living Situation: Spouse Feels Safe at Home: Yes Assistive Devices: Glasses Allergies Allergies Allergy/AdvReac Type Severity Reaction Status Date / Time Sulfa (Sulfonamide Allergy Mild RASH,SWELLI Verified 01/01/22 00:52 Antibiotics) NG Home Meds Home Medications Medication Instructions Recorded Confirmed albuterol sulfate 90 mcg/actuation 2 puff inhalation Q4H PRN Wheezing 05/10/18 01/01/22 aerosol inhaler (Ventolin HFA) atorvastatin 20 mg tablet 20 mg PO QAM 05/10/18 01/01/22 citalopram 20 mg tablet 20 mg PO QAM 05/10/18 01/01/22 cyclobenzaprine 10 mg tablet 10 mg PO UD PRN Muscle Spasm 05/10/18 01/01/22 fenofibrate 160 mg tablet 160 mg PO QAM 05/10/18 01/01/22 lisinopril 10 mg tablet 10 mg PO QAM 05/10/18 01/01/22 montelukast 10 mg tablet 10 mg PO HS 05/10/18 01/01/22 pantoprazole 40 mg tablet,delayed 40 mg PO QAM 05/10/18 01/01/22 release fluticasone fur. 100 mcg-umeclid 1 inh inhalation DAILY 12/10/20 01/01/22 62.5 mcg-vilant 25 mcg inhalat.powder (Trelegy Ellipta) ipratropium 0.5 mg-albuterol 3 mg 3 ml inhalation UD PRN copd/asthma 12/10/20 01/01/22 (2.5 mg base)/3 mL nebulization soln levocetirizine 5 mg tablet (Xyzal) 5 mg PO HS 12/10/20 01/01/22 levothyroxine 125 mcg tablet 125 mcg PO QAM 12/10/20 01/01/22 roflumilast 500 mcg tablet 500 mcg PO QAM 12/10/20 01/01/22 (Daliresp) bupropion HCl 150 mg 24 hr tablet, 150 mg PO BID 02/09/21 01/01/22 extended release insulin glargine 100 unit/mL (3 15 units SC QPM 02/09/21 01/01/22 mL) subcutaneous pen (Lantus Solostar U-100 Insulin) empagliflozin 25 mg tablet 25 mg PO QAM 01/01/22 01/01/22 (Jardiance) prednisone 10 mg tablet 0 mg PO DAILY 01/01/22 01/01/22 Previous Rx's Medication Instructions Recorded pen needle, diabetic 32 gauge x #100 ea 05/11/18" (Pen Needle) Results & Data (ED) Vital Signs Vital Signs - 24 hr 12/31/21 23:51 01/01/22 00:04 01/01/22 00:07 Temperature 37.0 C Temperature Source Oral Pulse Rate 103 H Pulse Rate [Finger] Respiratory Rate 24 Respiratory Effort / Characteristics Blood Pressure 135/97 Blood Pressure Mean 109 Pulse Oximetry 98 97 Oxygen Delivery Method Room Air Nebulizer Nebulizer Oxygen Flow Rate 4 Sepsis Recent Fever Within 48 Hours No Sepsis New/Unexplained Change in Mental Status N/A Sepsis Action Taken by Nursing No Action Required 01/01/22 00:12 Temperature Temperature Source Pulse Rate Pulse Rate [Finger] 103 H Respiratory Rate 20 Respiratory Effort / Characteristics Spontaneous Accessory Muscle Use Blood Pressure Blood Pressure Mean Pulse Oximetry 96 Oxygen Delivery Method Room Air Oxygen Flow Rate Sepsis Recent Fever Within 48 Hours Sepsis New/Unexplained Change in Mental Status Sepsis Action Taken by Nursing Laboratory Data Result diagrams: 01/01/22 Unknown 01/01/22 Unknown Lab Results 01/01/22 01/01/22 01/01/22 Range/Units 00:25 Unknown Unknown WBC 21.83 H (4.8-10.8) K/ul RBC 5.26 H (3.93-5.22) M/uL Hgb 14.5 (12.0-16.0) g/dl Hct 44.8 (34.1-44.9) % MCV 85.2 (80.0-100.0) fL MCH 27.6 (25.0-34.0) pg MCHC 32.4 (32.0-36.0) g/dL RDW Std Deviation 44.9 (36.4-46.3) fL RDW Coeff of Dinah 14.6 H (11.5-14.5) % Plt Count 491 H (130-400) K/uL MPV 11.5 (9.4-12.3) fL Immature Gran % (Auto) 1.2 % Neut % (Auto) 67.4 % Lymph % (Auto) 20.6 % [place] % (Auto) 9.4 % Eos % (Auto) 0.9 % Baso % (Auto) 0.5 % Neut # (Auto) 14.71 H (1.4-6.5) K/uL Lymph # (Auto) 4.50 H (1.2-3.4) K/uL [place] # (Auto) 2.06 H (0.24-0.82) K/uL Eos # (Auto) 0.19 (0-0.50) K/uL Baso # (Auto) 0.11 (0-0.2) K/uL Immature Gran # (Auto) 0.26 H (0.00-0.02) K/uL PT 10.8 (9.0-12.0) Seconds INR 1.0 (0.9-1.1) APTT 21.7 (21.0-31.0) Seconds PTT Ratio 0.8 VBG pH 7.32 L (7.36-7.41) VBG pCO2 57 H (38-50) mmHg VBG pO2 70 mmHg VBG HCO3 29 mmol/L VBG O2 Saturation 96.0 % VBG Base Excess 2.0 mEq/L Sodium (136-145) mmol/L Potassium (3.5-5.1) mmol/L Chloride (98-107) mmol/L Carbon Dioxide (21-32) mmol/L Anion Gap (3-11) BUN (6-23) mg/dl Creatinine (0.6-1.2) mg/dl Est Cr Clr Drug Dosing ml/min Est GFR ( Amer) ml/min Est GFR (Non-Af Amer) ml/min BUN/Creatinine Ratio (10-20) Glucose (70-99(Fasting)) mg/dl Calcium (8.5-10.1) mg/dl Total Bilirubin (0.2-1.0) mg/dl AST (13-39) U/L ALT (7-52) U/L Alkaline Phosphatase (34-104) U/L Troponin I High Sens (0-14) pg/ml Total Protein (6.0-8.3) gm/dl Albumin (3.4-5.0) gm/dl Globulin (2.5-4.0) gm/dl Albumin/Globulin Ratio (0.9-2) 01/01/22 Range/Units Unknown WBC (4.8-10.8) K/ul RBC (3.93-5.22) M/uL Hgb (12.0-16.0) g/dl Hct (34.1-44.9) % MCV (80.0-100.0) fL MCH (25.0-34.0) pg MCHC (32.0-36.0) g/dL RDW Std Deviation (36.4-46.3) fL RDW Coeff of Dinah (11.5-14.5) % Plt Count (130-400) K/uL MPV (9.4-12.3) fL Immature Gran % (Auto) % Neut % (Auto) % Lymph % (Auto) % [place] % (Auto) % Eos % (Auto) % Baso % (Auto) % Neut # (Auto) (1.4-6.5) K/uL Lymph # (Auto) (1.2-3.4) K/uL [place] # (Auto) (0.24-0.82) K/uL Eos # (Auto) (0-0.50) K/uL Baso # (Auto) (0-0.2) K/uL Immature Gran # (Auto) (0.00-0.02) K/uL PT (9.0-12.0) Seconds INR (0.9-1.1) APTT (21.0-31.0) Seconds PTT Ratio VBG pH (7.36-7.41) VBG pCO2 (38-50) mmHg VBG pO2 mmHg VBG HCO3 mmol/L VBG O2 Saturation % VBG Base Excess mEq/L Sodium 140 (136-145) mmol/L Potassium 4.1 (3.5-5.1) mmol/L Chloride 104 (98-107) mmol/L Carbon Dioxide 25 (21-32) mmol/L Anion Gap 11 (3-11) BUN 18 (6-23) mg/dl Creatinine 0.71 (0.6-1.2) mg/dl Est Cr Clr Drug Dosing 100.2 ml/min Est GFR ( Amer) 114.3 ml/min Est GFR (Non-Af Amer) 98.6 ml/min BUN/Creatinine Ratio 25.4 H (10-20) Glucose 176 H (70-99(Fasting)) mg/dl Calcium 10.2 H (8.5-10.1) mg/dl Total Bilirubin 0.3 (0.2-1.0) mg/dl AST 16 (13-39) U/L ALT 18 (7-52) U/L Alkaline Phosphatase 68 (34-104) U/L Troponin I High Sens 5.8 (0-14) pg/ml Total Protein 8.3 (6.0-8.3) gm/dl Albumin 4.8 (3.4-5.0) gm/dl Globulin 3.5 (2.5-4.0) gm/dl Albumin/Globulin Ratio 1.4 (0.9-2) Administered Medications Discontinued Medications Albuterol (Albut/Ipratrop 3mg/0.5mg Neb 3 Ml Vial) 12 ml INH ONE STA Stop: 01/01/22 00:04 Last Admin: 01/01/22 00:11 Dose: 12 ml Documented By: ASHOK Discharge Plan Visit Data Chief Complaint: Shortness of Breath/Dyspnea ED Provider: Petey Quiroz Discharge Problem: Acute exacerbation of chronic obstructive pulmonary disease Forms Stand Alone Forms: [facility] Prescriptions Prescriptions: No Action cyclobenzaprine 10 mg tablet 10 mg PO UD PRN (Reason: Muscle Spasm) atorvastatin 20 mg tablet 20 mg PO QAM citalopram 20 mg tablet 20 mg PO QAM pantoprazole 40 mg tablet,delayed release (DR/EC) 40 mg PO QAM lisinopril 10 mg tablet 10 mg PO QAM montelukast 10 mg tablet 10 mg PO HS albuterol sulfate [Ventolin HFA] 90 mcg/actuation HFA aerosol inhaler 2 puff Inhalation Q4H PRN (Reason: Wheezing) Label Comments: haven't used for awhile fenofibrate 160 mg tablet 160 mg PO QAM Rx Instructions: TAKE WITH FOOD (DME) pen needle, diabetic [Pen Needle] 32 gauge x 5/32" needle See Dose Instructions .ROUTE .MEDSUPPLY Qty: 100 1RF Dose Instruction: As directed Rx Instructions: As directed ipratropium-albuterol 0.5 mg-3 mg(2.5 mg base)/3 mL Solution For Nebulization 3 ml INHALATION UD PRN (Reason: copd/asthma) levothyroxine 125 mcg Tablet 125 mcg PO QAM levocetirizine [Xyzal] 5 mg Tablet 5 mg PO HS roflumilast [Daliresp] 500 mcg Tablet 500 mcg PO QAM Trelegy Ellipta 100-62.5-25 mcg Blister With Device 1 inh INHALATION DAILY bupropion HCl 150 mg Tablet Extended Release 24 Hr 150 mg PO BID insulin glargine [Lantus Solostar U-100 Insulin] 100 unit/mL (3 mL) insulin pen 15 units SC QPM prednisone 10 mg tablet 0 mg PO DAILY Rx Instructions: STARTED 12/28/21 FOR 12 DAYS---40 MG X 3 DAYS, THEN 30 MG X 3 DAYS, THEN 20 MG X 3 DAYS, & 10 MG X 3 DAYS. Jardiance 25 mg tablet 25 mg PO QAM Referrals Referrals: Sam Valdovinos MD [Primary Care Provider] -
[2022-01-01 00:27] LABS: Basophils # (auto) 0.11 K/uL (0-0.2); Basophils % (auto) 0.5 %; Eosinophils # (auto) 0.19 K/uL (0-0.50); Eosinophils % (auto) 0.9 %; Hematocrit (blood only) 44.8 % (34.1-44.9); Hemoglobin 14.5 g/dl (12.0-16.0); Immature Granulocytes # (auto) 0.26 K/uL (0.00-0.02); Immature Granulocytes % (auto) 1.2 %; Lymphocytes % (auto) 20.6 %; Mean Corpuscular Hemoglobin 27.6 pg (25.0-34.0); Mean Corpuscular Hgb Conc 32.4 g/dL (32.0-36.0); Mean Corpuscular Volume 85.2 fL (80.0-100.0); Mean Platelet Volume 11.5 fL (9.4-12.3); Monocytes # (auto) 2.06 K/uL (0.24-0.82); Monocytes % (auto) 9.4 %; Neutrophils # (auto) 14.71 K/uL (1.4-6.5); Neutrophils % (auto) 67.4 %; Platelet Count 491 K/uL (130-400); RDW Coefficient of Variation 14.6 % (11.5-14.5); RDW Standard Deviation 44.9 fL (36.4-46.3); Red Blood Count 5.26 M/uL (3.93-5.22); White Blood Count 21.83 K/ul (4.8-10.8)
[2022-01-01 00:38] LABS: Partial Thromboplastin Ratio 0.8; Partial Thromboplastin Time 21.7 Seconds (21.0-31.0); Prothrombin Time 10.8 Seconds (9.0-12.0)
[2022-01-01 00:40] LABS: HCO3 VBG 29 mmol/L; PCO2 VBG 57 mmHg (38-50); PO2 VBG 70 mmHg; pH VBG 7.32 (7.36-7.41)
[2022-01-01 00:55] LABS: Troponin I High Sensitivity 5.8 pg/ml (0-14)
[2022-01-01 00:56] LABS: Albumin Globulin Ratio 1.4 (0.9-2); Albumin Level 4.8 gm/dl (3.4-5.0); BUN Creatinine Ratio 25.4 (10-20); Bilirubin,Total 0.3 mg/dl (0.2-1.0); Calcium 10.2 mg/dl (8.5-10.1); Creatinine Clr Calc Pharmacy 100.2 ml/min; Est GFR (African American) 114.3 ml/min; Est GFR (Non-African American) 98.6 ml/min; Globulin 3.5 gm/dl (2.5-4.0); Potassium 4.1 mmol/L (3.5-5.1); Total Protein 8.3 gm/dl (6.0-8.3)
[2022-01-01] MEDS ORDERED: DOXYCYCLINE HYCLATE 100 MG in DEXTROSE 5% 100 ML IV STA (01:38)
[2022-01-01] MEDS ORDERED: SODIUM CHLORIDE 0.9% 1000ML 1,000 ML IV ONE (01:39)
--- NOTE | 2022-01-01 01:39 | History & Physical Report ---
Date of Service January 01, 2022 Assessment & Plan (1) Acute and chronic respiratory failure with hypercapnia: Plan: hx chronic respiratory failure secondary to COPD on home O2/SHAINA on BIPAP (Trilogy machine) COPD Exacerbation secondary to complicated bronchitis, possible sepsis HTN, stable hyperlipidemia on statin Rx DM2 insulin requiring, suboptimal control as of recent hemoglobin A1c of 8.01 October 2021 postsurgical hypothyroidism, current TSH noted to be low with normal free T4 levels pulmonary nodules, low suspicion from November 2020 study, patient overdue for 6- month follow-up imaging recommended mood disorder, at baseline ongoing tobacco abuse Medical telemetry Supplemental O2 BiPAP if needed CS, Doxycycline Steroids, nebs RTC Pulmonary consult if without improvement Basal bolus insulin, ISS BG goal 1 10-1 40, carb count coverage, update hemogl obin A1c DVT prophylaxis. Lovenox subcu Full code Total critical care time was 45 minutes. Text document was generated using [email or web address] voice recognition software. It may contain grammatical or spelling errors. Kindly contact undersigned for clarification of any documentation item in question. History of Present Illness Chief Complaint: Worsening cough, shortness of breath Primary Care Provider: Sam Valdovinos MD History obtained from patient, family, and records. Medical history significant for chronic respiratory failure secondary to COPD on home O2, SHAINA on BIPAP (Trilogy machine), HTN, hyperlipidemia, DM2 insulin requiring, postsurgical hypothyroidism, pulmonary nodules, mood disorder, ongoing tobacco abuse. Last confinement November 2020 for COPD exacerbation. Few days history of junky cough symptoms along with worsening shortness of breath. Subcostal pain from coughing. No known sick contacts. Patient denies aspiration. Started smoking again. Patient completed COVID-19 vaccination. Symptoms not improved by home inhalers. Patient unable to start prednisone rescue kit at home. Solu-Medrol administered en route to the ER. Medical History as above Surgical History : Carpal tunnel surgery, BTL, dental surgery, subtotal thyroidectomy Family History : DM, hepatitis C Personal/Social history : Half pack daily, no EtOH intake, disabled Allergies Allergy/AdvReac Type Severity Reaction Status Date / Time Sulfa (Sulfonamide Allergy Mild RASH,SWELLI Verified 01/01/22 00:52 Antibiotics) NG Home Medications Medication Instructions Recorded Confirmed Type albuterol sulfate 90 mcg/actuation 2 puff inhalation Q4H PRN Wheezing 05/10/18 01/01/22 History aerosol inhaler (Ventolin HFA) atorvastatin 20 mg tablet 20 mg PO QAM 05/10/18 01/01/22 History citalopram 20 mg tablet 20 mg PO QAM 05/10/18 01/01/22 History cyclobenzaprine 10 mg tablet 10 mg PO UD PRN Muscle Spasm 05/10/18 01/01/22 History fenofibrate 160 mg tablet 160 mg PO QAM 05/10/18 01/01/22 History lisinopril 10 mg tablet 10 mg PO QAM 05/10/18 01/01/22 History montelukast 10 mg tablet 10 mg PO HS 05/10/18 01/01/22 History pantoprazole 40 mg tablet,delayed 40 mg PO QAM 05/10/18 01/01/22 History release pen needle, diabetic 32 gauge x #100 ea 05/11/18 Rx " (Pen Needle) fluticasone fur. 100 mcg-umeclid 1 inh inhalation DAILY 12/10/20 01/01/22 History 62.5 mcg-vilant 25 mcg inhalat.powder (Trelegy Ellipta) ipratropium 0.5 mg-albuterol 3 mg 3 ml inhalation UD PRN copd/asthma 12/10/20 01/01/22 History (2.5 mg base)/3 mL nebulization soln levocetirizine 5 mg tablet (Xyzal) 5 mg PO HS 12/10/20 01/01/22 History levothyroxine 125 mcg tablet 125 mcg PO QAM 12/10/20 01/01/22 History roflumilast 500 mcg tablet 500 mcg PO QAM 12/10/20 01/01/22 History (Daliresp) bupropion HCl 150 mg 24 hr tablet, 150 mg PO BID 02/09/21 01/01/22 History extended release insulin glargine 100 unit/mL (3 15 units SC QPM 02/09/21 01/01/22 History mL) subcutaneous pen (Lantus Solostar U-100 Insulin) empagliflozin 25 mg tablet 25 mg PO QAM 01/01/22 01/01/22 History (Jardiance) prednisone 10 mg tablet 0 mg PO DAILY 01/01/22 01/01/22 History Past Med/Surg History Medical History Anxiety COPD (chronic obstructive pulmonary disease) FLARE UP NOV 2020 , H[facility]PITALIZED [facility] DM2 (diabetes mellitus, type 2) GERD (gastroesophageal reflux disease) HLD (hyperlipidemia) HTN (hypertension) Hypothyroidism SHAINA (obstructive sleep apnea) TRILIGY 100 Surgical History H/O colonoscopy "polyps x2, hyperplastic tissue repeat at age 50" H/O thyroidectomy H/O tubal ligation History of carpal tunnel surgery of right wrist History of cataract surgery RT Family History Mother Diabetes Father Hypertension Social History Smoking Status: Current every day smoker Tobacco Type: Cigarettes Second Hand Exposure: No; Do You Dip or Chew Tobacco: No; Hx Alcohol Use: No Hx Substance Use: No Preferred Language: Yi Communication Ability: Effective Medical Scientific Officer Required: No Beliefs That Will Affect Care: None marital status: Current Living Situation: Spouse Current Living Situation Comment: Lives in 1 story house Other Information That Helps Us Care for You: No Feels Safe at Home: Yes Safety Concerns: Feels Safe At This Time Assistive Devices: None and Oxygen - at Night Review of Systems Review of Systems: As per HPI, all other systems reviewed and negative Physical Exam Physical Exam: GENERAL: uncomfortable, minimal respiratory distress, currently receiving breathing treatment SKIN: Normal color, warm HEENT: [place] palpebral conjunctivae, no ptosis, dry buccal mucosa, neb mask in place NECK : Supple, no tenderness CHEST : Decreased breath sounds, expiratory wheezes, no tenderness HEART : Tachycardic, no obvious murmurs ABDOMEN: Some distention, nontender EXTREMITIES : No LE swelling/tenderness, no other conspicuous deformities noted NEUROLOGIC : Coherent, no facial asymmetry, no other gross focality Results & Data Results & Data ([facility]) Vital Signs (Past 12 Hours) Vital Signs Temp Pulse Pulse Resp BP Pulse Ox O2 Del Method 01/01/22 00:12 103 H 20 96 Room Air 01/01/22 00:07 97 Nebulizer 01/01/22 00:04 Nebulizer 12/31/21 23:51 37.0 C 103 H 24 135/97 98 Room Air O2 Flow Rate 01/01/22 00:12 01/01/22 00:07 01/01/22 00:04 4 12/31/21 23:51 Laboratory Results Laboratory Results WBC 21.83 K/ul (4.8-10.8) H 01/01/22 Unknown RBC 5.26 M/uL (3.93-5.22) H 01/01/22 Unknown Hgb 14.5 g/dl (12.0-16.0) 01/01/22 Unknown Hct 44.8 % (34.1-44.9) 01/01/22 Unknown MCV 85.2 fL (80.0-100.0) 01/01/22 Unknown MCH 27.6 pg (25.0-34.0) 01/01/22 Unknown MCHC 32.4 g/dL (32.0-36.0) 01/01/22 Unknown RDW Std Deviation 44.9 fL (36.4-46.3) 01/01/22 Unknown RDW Coeff of Dinah 14.6 % (11.5-14.5) H 01/01/22 Unknown Plt Count 491 K/uL (130-400) H 01/01/22 Unknown MPV 11.5 fL (9.4-12.3) 01/01/22 Unknown Immature Gran % (Auto) 1.2 % 01/01/22 Unknown Neut % (Auto) 67.4 % 01/01/22 Unknown Lymph % (Auto) 20.6 % 01/01/22 Unknown [place] % (Auto) 9.4 % 01/01/22 Unknown Eos % (Auto) 0.9 % 01/01/22 Unknown Baso % (Auto) 0.5 % 01/01/22 Unknown Neut # (Auto) 14.71 K/uL (1.4-6.5) H 01/01/22 Unknown Lymph # (Auto) 4.50 K/uL (1.2-3.4) H 01/01/22 Unknown [place] # (Auto) 2.06 K/uL (0.24-0.82) H 01/01/22 Unknown Eos # (Auto) 0.19 K/uL (0-0.50) 01/01/22 Unknown Baso # (Auto) 0.11 K/uL (0-0.2) 01/01/22 Unknown Immature Gran # (Auto) 0.26 K/uL (0.00-0.02) H 01/01/22 Unknown PT 10.8 Seconds (9.0-12.0) 01/01/22 Unknown INR 1.0 (0.9-1.1) 01/01/22 Unknown APTT 21.7 Seconds (21.0-31.0) 01/01/22 Unknown PTT Ratio 0.8 01/01/22 Unknown VBG pH 7.32 (7.36-7.41) L 01/01/22 00:25 VBG pCO2 57 mmHg (38-50) H 01/01/22 00:25 VBG pO2 70 mmHg 01/01/22 00:25 VBG HCO3 29 mmol/L 01/01/22 00:25 VBG O2 Saturation 96.0 % 01/01/22 00:25 VBG Base Excess 2.0 mEq/L 01/01/22 00:25 Sodium 140 mmol/L (136-145) 01/01/22 Unknown Potassium 4.1 mmol/L (3.5-5.1) 01/01/22 Unknown Chloride 104 mmol/L (98-107) 01/01/22 Unknown Carbon Dioxide 25 mmol/L (21-32) 01/01/22 Unknown Anion Gap 11 (3-11) 01/01/22 Unknown BUN 18 mg/dl (6-23) 01/01/22 Unknown Creatinine 0.71 mg/dl (0.6-1.2) 01/01/22 Unknown Est Cr Clr Drug Dosing 100.2 ml/min 01/01/22 Unknown Est GFR ( Amer) 114.3 ml/min 01/01/22 Unknown Est GFR (Non-Af Amer) 98.6 ml/min 01/01/22 Unknown BUN/Creatinine Ratio 25.4 (10-20) H 01/01/22 Unknown Glucose 176 mg/dl (70-99(Fasting)) H 01/01/22 Unknown Calcium 10.2 mg/dl (8.5-10.1) H 01/01/22 Unknown Total Bilirubin 0.3 mg/dl (0.2-1.0) 01/01/22 Unknown AST 16 U/L (13-39) 01/01/22 Unknown ALT 18 U/L (7-52) 01/01/22 Unknown Alkaline Phosphatase 68 U/L (34-104) 01/01/22 Unknown Troponin I High Sens 5.8 pg/ml (0-14) 01/01/22 Unknown Total Protein 8.3 gm/dl (6.0-8.3) 01/01/22 Unknown Albumin 4.8 gm/dl (3.4-5.0) 01/01/22 Unknown Globulin 3.5 gm/dl (2.5-4.0) 01/01/22 Unknown Albumin/Globulin Ratio 1.4 (0.9-2) 01/01/22 Unknown Diagnostic Findings Chest x-ray as per my interpretation COPD, atelectasis EKG as per my interpretation : Rate 105, sinus tachycardia, normal axis, incomplete RBBB, T wave abnormalities lateral leads
[2022-01-01 01:43] LABS: Influenza A virus by PCR Negative (Neg); Influenza B virus by PCR Negative (Neg); RSV by PCR Negative (Neg); SARS CoV2 RNA(COVID-19)Cepheid NEGATIVE (Negative)
[2022-01-01 01:53] LABS: Magnesium 2.3 mg/dl (1.7-2.4)
[2022-01-01 02:10] LABS: Thyroid Stimulating Hormone 0.192 uIu/ml (0.300-4.500)
[2022-01-01] MEDS ORDERED: GLUCAGON FOR INJ 1 MG VIAL SQ PRN (02:52)
[2022-01-01] MEDS ORDERED: PROMETHAZINE HCL 12.5 MG in SODIUM CHLORIDE 0.9% 50 ML IV PRN (02:52)
[2022-01-01] MEDS ORDERED: CARBOHYDRATES FOR HYPOGLYCEMIA PO PRN (02:52)
[2022-01-01] MEDS ORDERED: GLUCOSE 40% GEL 15 GM TUBE PO PRN (02:52)
[2022-01-01] MEDS ORDERED: GLUCOSE 10 TAB/TUBE PO PRN (02:52)
[2022-01-01] MEDS ORDERED: ACETAMINOPHEN 325 MG TAB PO PRN (02:52)
[2022-01-01] MEDS ORDERED: DEXTROSE 50% 50 ML SYRINGE IV PRN (02:52)
[2022-01-01] MEDS: traMADol HCL 50 MG TABLET PO PRN ×2 (03:18→12:02)
[2022-01-01] MEDS ORDERED: methylPREDNISolone 40 MG in SYRINGE 0 ML IV STA (03:30)
[2022-01-01] MEDS: INSULIN ASPART PER UNIT SC SCH ×5 (03:32→20:18)
[2022-01-01 03:35] LABS: T4 Free Thyroxine 1.18 ng/dl (0.61-1.60)
[2022-01-01] MEDS ORDERED: LANTUS PER UNIT CHARGE SQ STA (03:43)
[2022-01-01] MEDS ORDERED: cloNIDine HCL 0.1 MG TAB PO ONE (04:24)
[2022-01-01 05:53] LABS: Hematocrit (blood only) 39.6 % (34.1-44.9); Hemoglobin 12.6 g/dl (12.0-16.0); Mean Corpuscular Hemoglobin 27.3 pg (25.0-34.0); Mean Corpuscular Hgb Conc 31.8 g/dL (32.0-36.0); Mean Corpuscular Volume 85.9 fL (80.0-100.0); Mean Platelet Volume 10.9 fL (9.4-12.3); Platelet Count 387 K/uL (130-400); RDW Coefficient of Variation 14.6 % (11.5-14.5); Red Blood Count 4.61 M/uL (3.93-5.22); White Blood Count 18.11 K/ul (4.8-10.8)
[2022-01-01] MEDS ORDERED: LACTATED RINGER'S 1,000 ML IV ONE (06:00)
[2022-01-01 06:11] LABS: Basophils # (auto) 0.03 K/uL (0-0.2); Basophils % (auto) 0.2 %; Immature Granulocytes # (auto) 0.19 K/uL (0.00-0.02); Lymphocytes # (auto) 0.99 K/uL (1.2-3.4); Lymphocytes % (auto) 5.5 %; Monocytes # (auto) 0.47 K/uL (0.24-0.82); Monocytes % (auto) 2.6 %; Neutrophils # (auto) 16.43 K/uL (1.4-6.5); Neutrophils % (auto) 90.7 %; RBC Morphology Unremarkable
[2022-01-01 06:13] LABS: BUN Creatinine Ratio 25.4 (10-20); Calcium 9.2 mg/dl (8.5-10.1); Creatinine Clr Calc Pharmacy 98.1 ml/min; Est GFR (African American) 114.3 ml/min; Est GFR (Non-African American) 98.6 ml/min
[2022-01-01] MEDS ORDERED: LEVOTHYROXINE SODIUM 125 MCG TABLET PO SCH (06:30)
[2022-01-01 06:42] LABS: Allen Test Pos (Pos); Base Excess ABG -0.4 mEq/L (-9-1.8); HCO3 ABG 26 mmol/L (19-24); Oxygen Saturation ABG > 100.0 % (90-95); PCO2 ABG 48 mmHg (35-46); PO2 ABG 122 mmHg (80-95); pH ABG 7.34 (7.35-7.45)
[2022-01-01] MEDS ORDERED: XOPENEX/ATROVENT 1.25mg/0.5MG NEB COMBO NEB SCH (07:00)
[2022-01-01] MEDS: IPRATROPIUM BROMIDE NEB SOLN 0.02% 2.5 ML VIAL INH SCH ×3 (07:07→19:48)
[2022-01-01] MEDS: LEVALBUTEROL 1.25MG/0.5ML NEB INH SCH ×3 (07:07→19:48)
[2022-01-01] MEDS: PANTOprazole 40 MG TAB PO SCH (07:32)
[2022-01-01] MEDS: lisinopril 10 MG TAB PO SCH (07:32)
[2022-01-01] MEDS: ROFLUMILAST 500 MCG TAB PO SCH (07:32)
[2022-01-01] MEDS: buPROPion XL 150 MG TABCR PO SCH ×2 (07:33→20:06)
[2022-01-01] MEDS: ATORVASTATIN 20 MG TAB PO SCH (07:33)
[2022-01-01] MEDS: CITALOPRAM 20 MG TAB PO SCH (07:33)
[2022-01-01] MEDS: ENOXAPARIN INJ 40 MG/0.4 ML SYR SQ SCH (07:35)
[2022-01-01] MEDS ORDERED: SODIUM CHLORIDE 0.9% 500 ML IV SCH (08:15)
--- NOTE | 2022-01-01 08:15 | XRay Report ---
XR chest 1V portable CLINICAL HISTORY: Dyspnea. COMPARISON STUDY: Chest radiograph and chest CT December 10, 2020. FINDINGS: Emphysema is noted. Lung volumes are normal. Lungs are clear. There is no pneumothorax or p leural effusion. Cardiac size is normal. Mediastinal contours are normal. There is no evidence for pu lmonary edema. IMPRESSION: No acute cardiopulmonary findings. Emphysema. ACT 112: Negative or not required by law. Electronically signed by: Chun Garcia M.D. 01/01/2022 8:13 AM
[2022-01-01 08:29] LABS: Estimated Average Glucose 180 mg/dl; Hemoglobin A1C 7.9 % (4.5-5.6)
[2022-01-01] MEDS ORDERED: predniSONE 20 MG TAB PO SCH (09:00)
[2022-01-01] MEDS ORDERED: LEVALBUTEROL HCL 0.63 MG/3 ML NEB NEB PRN (09:43)
[2022-01-01] MEDS ORDERED: PHARMACY GLYCEMIC MGMT CONSULT PRN (11:54)
[2022-01-01] MEDS: methylPREDNISolone 40 MG in SYRINGE 0 ML IV SCH ×2 (12:49→20:06)
--- NOTE | 2022-01-01 13:02 | Hospitalist Progress Note ---
Date of Service January 01, 2022 Assessment & Plan (1) Acute and chronic respiratory failure with hypercapnia: Plan: Acute on chronic respiratory failure with hypoxia and hypercapnia Acute COPD exacerbation Chronic oxygen dependency--2 L at bedtime Tobacco use disorder on Trelegy at baseline Possible sepsis Normal procalcitonin CXR:No acute cardiopulmonary findings. Emphysema. Continue IV Solu-Medrol, doxycycline, Nebs Keep oxygen saturations 88 to 92% Counseled to quit smoking Incentive spirometry, flutter valve Consider pulmonary evaluation if needed Supplemental oxygen as needed Leukocytosis Likely secondary to steroids Blood cultures pending No other obvious source of infection Hyperlipidemia on Statin HTN BP slightly elevated Continue Lisinopril DM II HbA1C:7.9 Continue insulin per protocol Glycemic pharmacy consulted Postsurgical Hypothyroidism Low TSH, normal free T4 Decrease levothyroxine from 125 to 112 mcg daily Will need repeat thyroid function test as outpatient in 4 to 6 weeks Pulmonary nodules Current smoker Needs follow-up as outpatient with repeat CT SHAINA on Trilogy HS DVT Px: Lovenox SQ Code Status Full code Admission and Anticipated Discharge Date Admission Date: January 01, 2022 Subjective Patient is seen and examined at bedside States having dyspnea, cough, wheezing and headache Admits to smoking Denies any chest pain, hemoptysis, dizziness, abdominal pain Offers no other complaints Saturating well on room Review of Systems Review of Systems: All systems reviewed & are unremarkable except as noted in Subjective Physical Exam Physical Exam: Physical Exam: Vitals signs as noted above General Appearance:Moderately built and nourished, mild distress Head: normocephalic, Atraumatic Eyes: normal inspection, EOMI Neck: supple, Trachea midline Respiratory/Chest: Decreased breath sounds, B/L wheezing, No accessory muscle use Cardiovascular: S1, S2, No murmur Abdomen/GI:Soft, Non tender, Bowel sounds present Extremities/Musculoskeletal:normal inspection, no edema Neurologic/Psych:AAOX3, grossly no focal neurological deficits Skin: normal color, warm Results & Data Results & Data ([facility]) Vital Signs (Past 12 Hours) Vital Signs Temp Pulse Pulse Resp BP BP Pulse Ox 01/01/22 06:39 104 H 01/01/22 12:13 01/01/22 11:47 36.5 C 95 H 22 146/90 H 96 01/01/22 09:00 01/01/22 07:50 136/80 01/01/22 09:57 94 H 19 95 11/08/22 09:00 36.4 C L 93 H 18 94 01/01/22 07:07 109 H 19 97 01/01/22 06:36 106 H 18 96 01/01/22 04:00 118 H 01/01/22 04:00 01/01/22 02:52 36.7 C 127 H 22 158/92 H 91 01/01/22 02:00 121 H 24 108/75 93 O2 Del Method O2 Flow Rate 01/01/22 06:39 01/01/22 12:13 Room Air 01/01/22 11:47 Nasal Cannula 01/01/22 09:00 Nasal Cannula 4 01/01/22 07:50 01/01/22 09:57 Nasal Cannula 1 01/01/22 09:00 Nasal Cannula 01/01/22 07:07 Nasal Cannula 4 01/01/22 06:36 Nasal Cannula 5 01/01/22 04:00 01/01/22 04:00 Nasal Cannula 5 01/01/22 02:52 Nasal Cannula 5 01/01/22 02:00 Nasal Cannula 4 Laboratory Results Short CBC 01/01/22 01/01/22 Range/Units 05:33 Unknown WBC 18.11 H 21.83 H (4.8-10.8) K/ul Hgb 12.6 14.5 (12.0-16.0) g/dl Hct 39.6 44.8 (34.1-44.9) % Plt Count 387 491 H (130-400) K/uL BMP 01/01/22 01/01/22 05:33 Unknown Sodium 140 140 Potassium 4.0 4.1 Chloride 107 104 Carbon Dioxide 24 25 BUN 18 18 Creatinine 0.71 0.71 Glucose 200 H 176 H Calcium 9.2 10.2 H Liver Function 01/01/22 Range/Units Unknown Total Bilirubin 0.3 (0.2-1.0) mg/dl AST 16 (13-39) U/L ALT 18 (7-52) U/L Alkaline Phosphatase 68 (34-104) U/L Albumin 4.8 (3.4-5.0) gm/dl
--- NOTE | 2022-01-01 14:02 | Electrocardiogram Report ---
Test Reason : Blood Pressure : / mmHG Vent. Rate : 106 BPM Atrial Rate : 106 BPM P-R Int : 128 ms QRS Dur : 104 ms QT Int : 346 ms P-R-T Axes : 083 078 064 degrees QTc Int : 459 ms Poor data quality, interpretation may be adversely affected Sinus tachycardia Incomplete right bundle branch block Nonspecific ST and T wave abnormality Abnormal ECG When compared with ECG of 10-DEC-2020 02:19, Incomplete right bundle branch block is now Present Confirmed by Fernandez Gonzalez ([id number] on 01/01/2022 2:02:24 PM Referred By: REFERRED SELF Confirmed By:Fernandez Gonzalez
--- NOTE | 2022-01-01 14:54 | Pharmacy Report ---
Pharmacy Glycemic Short Note 2 - Date of Service January 01, 2022 - Glycemic Short BSG Results (Last 24 hours): 01/01/22 01/01/22 01/01/22 03:25 03:27 05:33 Glucose 200 H POC Glucose 308 H* 306 H* 01/01/22 01/01/22 01/01/22 07:45 12:57 Unknown Glucose 176 H POC Glucose 222 H 148 H OUTPATIENT ANTIDIABETIC REGIMEN: * Lantus 15 units * Empagliflozin 25 mg * A1c 7.9% 01/01 ASSESSMENT: * Patient admitted with respiratory failure, started on methylprednisolone 40 mg q8H IV. * BSGs initially elevated on admission, have trended down. Received 15 units of lantus this AM, will set scale for additional 0-7 units this evening * Novolog parameters between weight based stress of 2 and 3. Will monitor with continued steroid use; overnight checks PLAN FOR INPATIENT GLYCEMIC CONTROL: * Hold outpatient oral diabetes medications * Basal insulin * Lantus 15 units SQ x1 this AM; 0-7 tonight * Bolus insulin * NovoLog per scale ACHS or Q6hrs while NPO * Goal Range: Low 110 mg/dL - High 140 mg/dL * Correction Factor: 25 mg/dL/unit * Nutritional / Prandial insulin per carb ratio of 1 unit per 10 grams CHO consumed
[2022-01-01] MEDS ORDERED: ALBUTEROL HFA 8 GM INHALER INH PRN ×2 (15:53→18:50)
[2022-01-01] MEDS ORDERED: FLUTICASONE FUROATE 100MCG 14 PUFFS/INHALER INH SCH (15:55)
[2022-01-01] MEDS: CETIRIZINE HCL 10 MG TABLET PO SCH (20:07)
[2022-01-01] MEDS: DOXYCYCLINE HYCLATE 100 MG CAP PO SCH (20:09)
[2022-01-01] MEDS: MONTELUKAST SODIUM 10 MG TABLET PO SCH (20:10)
[2022-01-01] MEDS: LANTUS PER UNIT CHARGE SC SCH (20:19)
[2022-01-01] MEDS ORDERED: LANTUS PER UNIT CHARGE SC SCH ×2 (21:00)
[2022-01-02] MEDS: INSULIN ASPART PER UNIT SC SCH ×6 (00:11→20:26)
[2022-01-02] MEDS: IPRATROPIUM BROMIDE NEB SOLN 0.02% 2.5 ML VIAL INH SCH ×2 (01:15→07:13)
[2022-01-02] MEDS: LEVALBUTEROL 1.25MG/0.5ML NEB INH SCH ×2 (01:15→07:15)
[2022-01-02] MEDS: methylPREDNISolone 40 MG in SYRINGE 0 ML IV SCH ×3 (03:15→20:27)
[2022-01-02] MEDS: LEVOTHYROXINE SODIUM 112 MCG TABLET PO SCH (05:32)
[2022-01-02 06:57] LABS: Basophils # (auto) 0.03 K/uL (0-0.2); Basophils % (auto) 0.1 %; Eosinophils # (auto) 0.01 K/uL (0-0.50); Hematocrit (blood only) 40.1 % (34.1-44.9); Hemoglobin 13.1 g/dl (12.0-16.0); Immature Granulocytes # (auto) 0.16 K/uL (0.00-0.02); Immature Granulocytes % (auto) 0.8 %; Lymphocytes # (auto) 1.88 K/uL (1.2-3.4); Lymphocytes % (auto) 9.1 %; Mean Corpuscular Hemoglobin 27.6 pg (25.0-34.0); Mean Corpuscular Hgb Conc 32.7 g/dL (32.0-36.0); Mean Corpuscular Volume 84.6 fL (80.0-100.0); Mean Platelet Volume 11.3 fL (9.4-12.3); Monocytes # (auto) 0.93 K/uL (0.24-0.82); Monocytes % (auto) 4.5 %; Neutrophils # (auto) 17.66 K/uL (1.4-6.5); Neutrophils % (auto) 85.5 %; Platelet Count 418 K/uL (130-400); RDW Coefficient of Variation 14.4 % (11.5-14.5); RDW Standard Deviation 44.3 fL (36.4-46.3); Red Blood Count 4.74 M/uL (3.93-5.22); White Blood Count 20.67 K/ul (4.8-10.8)
[2022-01-02 08:04] LABS: BUN Creatinine Ratio 28.4 (10-20); Calcium 9.9 mg/dl (8.5-10.1); Creatinine Clr Calc Pharmacy 103.2 ml/min; Est GFR (Non-African American) 101.8 ml/min; Potassium 4.1 mmol/L (3.5-5.1)
[2022-01-02] MEDS: LANTUS PER UNIT CHARGE SQ SCH (08:22)
[2022-01-02] MEDS: buPROPion XL 150 MG TABCR PO SCH ×2 (08:26→20:27)
[2022-01-02] MEDS: ROFLUMILAST 500 MCG TAB PO SCH (08:26)
[2022-01-02] MEDS: ATORVASTATIN 20 MG TAB PO SCH (08:26)
[2022-01-02] MEDS: CITALOPRAM 20 MG TAB PO SCH (08:26)
[2022-01-02] MEDS: PANTOprazole 40 MG TAB PO SCH (08:26)
[2022-01-02] MEDS: DOXYCYCLINE HYCLATE 100 MG CAP PO SCH ×2 (08:26→20:29)
[2022-01-02] MEDS: lisinopril 10 MG TAB PO SCH (08:27)
[2022-01-02] MEDS: ENOXAPARIN INJ 40 MG/0.4 ML SYR SQ SCH (08:27)
[2022-01-02] MEDS: FLUTICASONE/UMECLIDIN/VILANTER 100-62.5-25 INH SCH (08:27)
[2022-01-02] MEDS ORDERED: UMECLIDINIUM/VILANTEROL 62.5/25MCG 7 PUFFS/INHALER INH SCH (09:00)
[2022-01-02] MEDS ORDERED: predniSONE 20 MG TAB PO SCH (09:00)
[2022-01-02] MEDS ORDERED: FLUTICASONE FUROATE 100MCG 14 PUFFS/INHALER INH SCH (09:00)
[2022-01-02] MEDS ORDERED: NON-FORMULARY MEDICATION (Fluticasone-Umeclidin-Vilanter [Trelegy Ellipta] 100-62.5-25 mcg INH SCH (09:00)
[2022-01-02] MEDS ORDERED: FLUTICASONE/UMECLIDIN/VILANTER 100-62.5-25 INH SCH (09:00)
[2022-01-02] MEDS ORDERED: LEVALBUTEROL 1.25MG/0.5ML NEB INH PRN (10:59)
[2022-01-02] MEDS ORDERED: IPRATROPIUM BROMIDE NEB SOLN 0.02% 2.5 ML VIAL INH PRN (10:59)
--- NOTE | 2022-01-02 13:33 | Pharmacy Report ---
Pharmacy Glycemic Short Note 2 - Date of Service January 02, 2022 - Glycemic Short BSG Results (Last 24 hours): 01/01/22 01/01/22 01/01/22 16:40 20:18 23:44 Glucose POC Glucose 148 H 130 H 156 H 01/02/22 01/02/22 01/02/22 03:13 05:38 07:34 Glucose 138 H POC Glucose 159 H 147 H 01/02/22 11:19 Glucose POC Glucose 111 H OUTPATIENT ANTIDIABETIC REGIMEN: * Lantus 15 units * Empagliflozin 25 mg * A1c 7.9% 01/01 ASSESSMENT: 01/02 * Fasting BSG 147 mg/dL this morning, will continue 15 units qAM with additional scale for PM if needed * BSGs have trended downward towards goal range, will continue same novolog parameters. Continuing methylprednisolone q8H as of now- parameters will likely need loosened if tapering off/discontinued. 01/01 * Patient admitted with respiratory failure, started on methylprednisolone 40 mg q8H IV. * BSGs initially elevated on admission, have trended down. Received 15 units of lantus this AM, will set scale for additional 0-7 units this evening * Novolog parameters between weight based stress of 2 and 3. Will monitor with continued steroid use; overnight checks PLAN FOR INPATIENT GLYCEMIC CONTROL: * Hold outpatient oral diabetes medications * Basal insulin * Lantus 15 units SQ this AM; 0-7 tonight * Bolus insulin * NovoLog per scale ACHS or Q6hrs while NPO * Goal Range: Low 110 mg/dL - High 140 mg/dL * Correction Factor: 25 mg/dL/unit * Nutritional / Prandial insulin per carb ratio of 1 unit per 10 grams CHO consumed
--- NOTE | 2022-01-02 15:38 | Hospitalist Progress Note ---
Date of Service January 02, 2022 Assessment & Plan (1) Acute and chronic respiratory failure with hypercapnia: Plan: Acute on chronic respiratory failure with hypoxia and hypercapnia Acute COPD exacerbation Chronic oxygen dependency--2 L at bedtime Tobacco use disorder on Trelegy at baseline Possible sepsis Normal procalcitonin CXR:No acute cardiopulmonary findings. Emphysema. Continue IV Solu-Medrol, doxycycline Patient prefers nebs to be changed to inhalers (Nebs not helping as per patient) Keep oxygen saturations 88 to 92% Counseled to quit smoking Incentive spirometry, flutter valve Consider pulmonary evaluation if needed Needs follow-up with pulmonology upon discharge Leukocytosis Likely secondary to steroids Blood cultures No growth to date No other obvious source of infection Hyperlipidemia on Statin HTN BP Better Continue Lisinopril DM II HbA1C:7.9 Continue insulin per protocol Glycemic pharmacy consulted Postsurgical Hypothyroidism Low TSH, normal free T4 Decrease levothyroxine from 125 to 112 mcg daily Will need repeat thyroid function test as outpatient in 4 to 6 weeks Pulmonary nodules Current smoker Needs follow-up as outpatient with repeat CT SHAINA on Trilogy HS DVT Px: Lovenox SQ Code Status Full code Admission and Anticipated Discharge Date Admission Date: January 01, 2022 Subjective Patient is seen and examined at bedside States feeling much better today Less cough, dyspnea, wheezing today Denies any chest pain, hemoptysis, dizziness, abdominal pain Review of Systems Review of Systems: All systems reviewed & are unremarkable except as noted in Subjective Physical Exam Physical Exam: Physical Exam: Vitals signs as noted above General Appearance:Moderately built and nourished, mild distress Head: normocephalic, Atraumatic Eyes: normal inspection, EOMI Neck: supple, Trachea midline Respiratory/Chest: Decreased breath sounds, B/L wheezing/Rhonchi, No accessory muscle use Cardiovascular: S1, S2, No murmur Abdomen/GI:Soft, Non tender, Bowel sounds present Extremities/Musculoskeletal:normal inspection, no edema Neurologic/Psych:AAOX3, grossly no focal neurological deficits Skin: normal color, warm Results & Data Results & Data ([facility]) Vital Signs (Past 12 Hours) Vital Signs Temp Pulse Pulse Resp BP BP Pulse Ox 01/02/22 15:31 36.5 C 94 H 20 105/75 91 01/02/22 12:18 01/02/22 11:07 36.6 C 87 20 117/76 97 01/02/22 09:43 01/02/22 09:41 92 01/02/22 07:45 01/02/22 07:47 36.3 C L 79 20 118/83 98 01/02/22 07:00 75 01/02/22 07:15 88 20 97 Pulse Ox O2 Del Method O2 Del Method O2 Flow Rate O2 Flow Rate 01/02/22 15:31 01/02/22 12:18 Room Air, Oxymask 2 01/02/22 11:07 Room Air 01/02/22 09:43 93 Room Air 0 01/02/22 09:41 Room Air 0 01/02/22 07:45 Oxymask 2 01/02/22 07:47 01/02/22 07:00 01/02/22 07:15 Nasal Cannula 5 Laboratory Results Short CBC 01/02/22 Range/Units 05:38 WBC 20.67 H (4.8-10.8) K/ul Hgb 13.1 (12.0-16.0) g/dl Hct 40.1 (34.1-44.9) % Plt Count 418 H (130-400) K/uL BMP 01/02/22 05:38 Sodium 138 Potassium 4.1 Chloride 101 Carbon Dioxide 28 BUN 19 Creatinine 0.67 Glucose 138 H Calcium 9.9
[2022-01-02] MEDS: LANTUS PER UNIT CHARGE SC SCH (20:26)
[2022-01-02] MEDS: CETIRIZINE HCL 10 MG TABLET PO SCH (20:28)
[2022-01-02] MEDS: MONTELUKAST SODIUM 10 MG TABLET PO SCH (20:30)
[2022-01-03] MEDS: methylPREDNISolone 40 MG in SYRINGE 0 ML IV SCH ×3 (03:19→20:14)
[2022-01-03] MEDS: LEVOTHYROXINE SODIUM 112 MCG TABLET PO SCH (05:33)
[2022-01-03 07:34] LABS: Basophils # (auto) 0.02 K/uL (0-0.2); Basophils % (auto) 0.1 %; Eosinophils # (auto) 0.01 K/uL (0-0.50); Eosinophils % (auto) 0.1 %; Hematocrit (blood only) 40.3 % (34.1-44.9); Hemoglobin 13.1 g/dl (12.0-16.0); Immature Granulocytes # (auto) 0.14 K/uL (0.00-0.02); Immature Granulocytes % (auto) 0.9 %; Lymphocytes # (auto) 1.68 K/uL (1.2-3.4); Lymphocytes % (auto) 10.6 %; Mean Corpuscular Hemoglobin 27.5 pg (25.0-34.0); Mean Corpuscular Hgb Conc 32.5 g/dL (32.0-36.0); Mean Corpuscular Volume 84.7 fL (80.0-100.0); Mean Platelet Volume 11.2 fL (9.4-12.3); Monocytes # (auto) 0.67 K/uL (0.24-0.82); Monocytes % (auto) 4.2 %; Neutrophils # (auto) 13.39 K/uL (1.4-6.5); Neutrophils % (auto) 84.1 %; Platelet Count 407 K/uL (130-400); RDW Coefficient of Variation 14.5 % (11.5-14.5); Red Blood Count 4.76 M/uL (3.93-5.22); White Blood Count 15.91 K/ul (4.8-10.8)
[2022-01-03 08:03] LABS: BUN Creatinine Ratio 29.2 (10-20); Calcium 9.5 mg/dl (8.5-10.1); Creatinine Clr Calc Pharmacy 95.5 ml/min; Est GFR (African American) 112.4 ml/min; Potassium 4.1 mmol/L (3.5-5.1)
[2022-01-03] MEDS: INSULIN ASPART PER UNIT SC SCH ×4 (08:51→20:37)
[2022-01-03] MEDS: LANTUS PER UNIT CHARGE SQ SCH (08:52)
[2022-01-03] MEDS: PANTOprazole 40 MG TAB PO SCH (08:54)
[2022-01-03] MEDS: ENOXAPARIN INJ 40 MG/0.4 ML SYR SQ SCH (08:54)
[2022-01-03] MEDS: CITALOPRAM 20 MG TAB PO SCH (08:54)
[2022-01-03] MEDS: buPROPion XL 150 MG TABCR PO SCH ×2 (08:54→20:15)
[2022-01-03] MEDS: ROFLUMILAST 500 MCG TAB PO SCH (08:54)
[2022-01-03] MEDS: lisinopril 10 MG TAB PO SCH (08:54)
[2022-01-03] MEDS: ATORVASTATIN 20 MG TAB PO SCH (08:54)
[2022-01-03] MEDS: DOXYCYCLINE HYCLATE 100 MG CAP PO SCH ×2 (08:54→20:16)
[2022-01-03] MEDS: FLUTICASONE/UMECLIDIN/VILANTER 100-62.5-25 INH SCH (08:55)
--- NOTE | 2022-01-03 12:20 | Hospitalist Progress Note ---
Date of Service January 03, 2022 Assessment & Plan (1) Acute and chronic respiratory failure with hypercapnia: Plan: Acute on chronic respiratory failure with hypoxia and hypercapnia Acute COPD exacerbation Chronic oxygen dependency--2 L at bedtime Tobacco use disorder on Trelegy at baseline Possible sepsis Normal procalcitonin CXR:No acute cardiopulmonary findings. Emphysema. Continue IV Solu-Medrol, doxycycline Patient prefers nebs to be changed to inhalers (Nebs not helping as per patient) Keep oxygen saturations 88 to 92% Counseled to quit smoking Incentive spirometry, flutter valve Consider pulmonary evaluation if needed Needs follow-up with pulmonology upon discharge Titrate down steroids as able Leukocytosis Likely secondary to steroids Blood cultures No growth to date No other obvious source of infection Hyperlipidemia on Statin HTN BP Better Continue Lisinopril DM II HbA1C:7.9 Continue insulin per protocol Glycemic pharmacy consulted Postsurgical Hypothyroidism Low TSH, normal free T4 Decrease levothyroxine from 125 to 112 mcg daily Will need repeat thyroid function test as outpatient in 4 to 6 weeks Pulmonary nodules Current smoker Needs follow-up as outpatient with repeat CT SHAINA on Trilogy HS DVT Px: Lovenox SQ Code Status Full code Admission and Anticipated Discharge Date Admission Date: January 01, 2022 Subjective Patient is seen and examined at bedside No new complaints Cough, wheezing improving Dyspnea improved as well Denies any chest pain, hemoptysis, dizziness, nausea, abdominal pain Review of Systems Review of Systems: All systems reviewed & are unremarkable except as noted in Subjective Physical Exam Physical Exam: Physical Exam: Vitals signs as noted above General Appearance:Moderately built and nourished, mild distress Head: normocephalic, Atraumatic Eyes: normal inspection, EOMI Neck: supple, Trachea midline Respiratory/Chest: Decreased breath sounds, B/L wheezing/Rhonchi, No accessory muscle use Cardiovascular: S1, S2, No murmur Abdomen/GI:Soft, Non tender, Bowel sounds present Extremities/Musculoskeletal:normal inspection, no edema Neurologic/Psych:AAOX3, grossly no focal neurological deficits Skin: normal color, warm Results & Data Results & Data ([facility]) Vital Signs (Past 12 Hours) Vital Signs Temp Pulse Pulse Resp BP Pulse Ox Pulse Ox 01/03/22 11:14 01/03/22 11:07 36.5 C 85 20 135/86 94 01/03/22 09:00 93 01/03/22 07:17 01/03/22 07:05 90 01/03/22 06:45 36.5 C 78 18 132/88 92 01/03/22 04:00 36.4 C L 74 18 113/60 92 O2 Del Method O2 Del Method O2 Flow Rate O2 Flow Rate 01/03/22 11:14 Nasal Cannula 2 01/03/22 11:07 01/03/22 09:00 Nasal Cannula 2 01/03/22 07:17 Oxymask 2 01/03/22 07:05 01/03/22 06:45 Room Air 01/03/22 04:00 CPAP Laboratory Results Short CBC 01/03/22 Range/Units 06:00 WBC 15.91 H (4.8-10.8) K/ul Hgb 13.1 (12.0-16.0) g/dl Hct 40.3 (34.1-44.9) % Plt Count 407 H (130-400) K/uL BMP 01/03/22 06:00 Sodium 136 Potassium 4.1 Chloride 99 Carbon Dioxide 29 BUN 21 Creatinine 0.72 Glucose 171 H Calcium 9.5
[2022-01-03] MEDS: CETIRIZINE HCL 10 MG TABLET PO SCH (20:15)
[2022-01-03] MEDS: MONTELUKAST SODIUM 10 MG TABLET PO SCH (20:17)
[2022-01-03] MEDS: LANTUS PER UNIT CHARGE SC SCH (20:37)
[2022-01-04] MEDS: LEVOTHYROXINE SODIUM 112 MCG TABLET PO SCH (05:48)
[2022-01-04] MEDS: CITALOPRAM 20 MG TAB PO SCH (07:56)
[2022-01-04] MEDS: PANTOprazole 40 MG TAB PO SCH (07:56)
[2022-01-04] MEDS: DOXYCYCLINE HYCLATE 100 MG CAP PO SCH (07:56)
[2022-01-04] MEDS: ATORVASTATIN 20 MG TAB PO SCH (07:56)
[2022-01-04] MEDS: lisinopril 10 MG TAB PO SCH (07:56)
[2022-01-04] MEDS: ROFLUMILAST 500 MCG TAB PO SCH (07:56)
[2022-01-04] MEDS: buPROPion XL 150 MG TABCR PO SCH (07:56)
[2022-01-04] MEDS: ENOXAPARIN INJ 40 MG/0.4 ML SYR SQ SCH (07:57)
[2022-01-04] MEDS: methylPREDNISolone 40 MG in SYRINGE 0 ML IV SCH (07:57)
[2022-01-04] MEDS: FLUTICASONE/UMECLIDIN/VILANTER 100-62.5-25 INH SCH (08:00)
[2022-01-04] MEDS: INSULIN ASPART PER UNIT SC SCH ×2 (08:04→12:07)
[2022-01-04] MEDS: LANTUS PER UNIT CHARGE SQ SCH (08:04)
--- NOTE | 2022-01-04 12:24 | Hospitalist Progress Note ---
Date of Service January 04, 2022 Assessment & Plan (1) Acute and chronic respiratory failure with hypercapnia: Plan: Acute on chronic respiratory failure with hypoxia and hypercapnia Acute COPD exacerbation Chronic oxygen dependency--2 L at bedtime Tobacco use disorder on Trelegy at baseline Possible sepsis Normal procalcitonin CXR:No acute cardiopulmonary findings. Emphysema. Continue IV Solu-Medrol, doxycycline Patient prefers nebs to be changed to inhalers (Nebs not helping as per patient) Keep oxygen saturations 88 to 92% Counseled to quit smoking Incentive spirometry, flutter valve Advised to follow-up with pulmonology upon discharge Plan to discharge on PO Prednisone tapering course 2 Step: Needs 2 L supplemental oxygen with activity Leukocytosis Likely secondary to steroids Blood cultures No growth to date No other obvious source of infection Hyperlipidemia on Statin HTN BP stable Continue Lisinopril DM II HbA1C:7.9 Continue insulin per protocol Glycemic pharmacy consulted Advised to follow-up with PCP for further adjustment of insulin while on steroids. Postsurgical Hypothyroidism Low TSH, normal free T4 Decrease levothyroxine from 125 to 112 mcg daily Will need repeat thyroid function test as outpatient in 4 to 6 weeks Pulmonary nodules Current smoker Needs follow-up as outpatient with repeat CT SHAINA on Trilogy HS DVT Px: Lovenox SQ Code Status Full code Disposition Home Admission and Anticipated Discharge Date Admission Date: January 01, 2022 Subjective Patient is seen and examined at bedside No new complaints Cough, wheezing improving Dyspnea improved as well Denies any chest pain, hemoptysis, dizziness, nausea, abdominal pain Review of Systems Review of Systems: All systems reviewed & are unremarkable except as noted in Subjective Physical Exam Physical Exam: Physical Exam: Vitals signs as noted above General Appearance:Moderately built and nourished, mild distress Head: normocephalic, Atraumatic Eyes: normal inspection, EOMI Neck: supple, Trachea midline Respiratory/Chest: Decreased breath sounds, Scant occasional wheeze, No accessory muscle use Cardiovascular: S1, S2, No murmur Abdomen/GI:Soft, Non tender, Bowel sounds present Extremities/Musculoskeletal:normal inspection, no edema Neurologic/Psych:AAOX3, grossly no focal neurological deficits Skin: normal color, warm Results & Data Results & Data ([facility]) Vital Signs (Past 12 Hours) Vital Signs Temp Pulse Pulse Pulse Pulse Pulse Pulse 01/04/22 10:20 87 91 H 92 H 86 01/04/22 09:26 01/04/22 08:00 70 01/04/22 08:00 36.7 C 79 01/04/22 04:00 36.4 C L 83 Resp Resp Resp Resp Resp BP Pulse Ox 01/04/22 10:20 18 22 18 16 01/04/22 09:26 01/04/22 08:00 01/04/22 08:00 20 128/80 93 01/04/22 04:00 18 110/73 97 Pulse Ox Pulse Ox Pulse Ox Pulse Ox O2 Del Method O2 Flow Rate 01/04/22 10:20 94 88 L 96 94 2 01/04/22 09:26 Room Air 01/04/22 08:00 01/04/22 08:00 Room Air 01/04/22 04:00 CPAP
--- NOTE | 2022-01-04 12:39 | Discharge Summary ---
Date of Service January 04, 2022 Admission HPI Per Admitting Provider History obtained from patient, family, and records. Medical history significant for chronic respiratory failure secondary to COPD on home O2, SHAINA on BIPAP (Trilogy machine), HTN, hyperlipidemia, DM2 insulin requiring, postsurgical hypothyroidism, pulmonary nodules, mood disorder, ongoing tobacco abuse. Last confinement November 2020 for COPD exacerbation. Few days history of junky cough symptoms along with worsening shortness of breath. Subcostal pain from coughing. No known sick contacts. Patient denies aspiration. Started smoking again. Patient completed COVID-19 vaccination. Symptoms not improved by home inhalers. Patient unable to start prednisone rescue kit at home. Solu-Medrol administered en route to the ER. Medical History as above Surgical History : Carpal tunnel surgery, BTL, dental surgery, subtotal thyroidectomy Family History : DM, hepatitis C Personal/Social history : Half pack daily, no EtOH intake, disabled Admission Exam Per Admitting Provider Physical Exam Physical Exam: GENERAL: uncomfortable, minimal respiratory distress, currently receiving breathing treatment SKIN: Normal color, warm HEENT: Anita palpebral conjunctivae, no ptosis, dry buccal mucosa, neb mask in place NECK : Supple, no tenderness CHEST : Decreased breath sounds, expiratory wheezes, no tenderness HEART : Tachycardic, no obvious murmurs ABDOMEN: Some distention, nontender EXTREMITIES : No LE swelling/tenderness, no other conspicuous deformities noted NEUROLOGIC : Coherent, no facial asymmetry, no other gross focality Principal Diagnosis Acute on chronic respiratory failure with hypoxia and hypercapnia Acute COPD exacerbation Discharge Data Allergies Allergy/AdvReac Type Severity Reaction Status Date / Time Sulfa (Sulfonamide Allergy Mild RASH,SWELLI Verified 01/01/22 00:52 Antibiotics) NG Consultations 01/01/22 01:02 ED Decision to Admit Stat Procedures Performed Laboratory Results WBC 15.91 K/ul (4.8-10.8) H 01/03/22 06:00 RBC 4.76 M/uL (3.93-5.22) 01/03/22 06:00 Hgb 13.1 g/dl (12.0-16.0) 01/03/22 06:00 Hct 40.3 % (34.1-44.9) 01/03/22 06:00 MCV 84.7 fL (80.0-100.0) 01/03/22 06:00 MCH 27.5 pg (25.0-34.0) 01/03/22 06:00 MCHC 32.5 g/dL (32.0-36.0) 01/03/22 06:00 RDW Std Deviation 45.0 fL (36.4-46.3) 01/03/22 06:00 RDW Coeff of Dinah 14.5 % (11.5-14.5) 01/03/22 06:00 Plt Count 407 K/uL (130-400) H 01/03/22 06:00 MPV 11.2 fL (9.4-12.3) 01/03/22 06:00 Immature Gran % (Auto) 0.9 % 01/03/22 06:00 Neut % (Auto) 84.1 % 01/03/22 06:00 Lymph % (Auto) 10.6 % 01/03/22 06:00 Walton % (Auto) 4.2 % 01/03/22 06:00 Eos % (Auto) 0.1 % 01/03/22 06:00 Baso % (Auto) 0.1 % 01/03/22 06:00 Neut # (Auto) 13.39 K/uL (1.4-6.5) H 01/03/22 06:00 Lymph # (Auto) 1.68 K/uL (1.2-3.4) 01/03/22 06:00 Walton # (Auto) 0.67 K/uL (0.24-0.82) 01/03/22 06:00 Eos # (Auto) 0.01 K/uL (0-0.50) 01/03/22 06:00 Baso # (Auto) 0.02 K/uL (0-0.2) 01/03/22 06:00 Immature Gran # (Auto) 0.14 K/uL (0.00-0.02) H 01/03/22 06:00 RBC Morphology Unremarkable 01/01/22 05:33 PT 10.8 Seconds (9.0-12.0) 01/01/22 Unknown INR 1.0 (0.9-1.1) 01/01/22 Unknown APTT 21.7 Seconds (21.0-31.0) 01/01/22 Unknown PTT Ratio 0.8 11/08/22 Unknown ABG pH 7.34 (7.35-7.45) L 01/01/22 05:33 ABG pCO2 48 mmHg (35-46) H 01/01/22 05:33 ABG pO2 122 mmHg (80-95) H 01/01/22 05:33 ABG HCO3 26 mmol/L (19-24) H 01/01/22 05:33 ABG O2 Saturation > 100.0 % (90-95) H 01/01/22 05:33 ABG Base Excess -0.4 mEq/L (-9-1.8) 01/01/22 05:33 Ananth Test Pos (Pos) 01/01/22 05:33 VBG pH 7.32 (7.36-7.41) L 01/01/22 00:25 VBG pCO2 57 mmHg (38-50) H 01/01/22 00:25 VBG pO2 70 mmHg 01/01/22 00:25 VBG HCO3 29 mmol/L 01/01/22 00:25 VBG O2 Saturation 96.0 % 01/01/22 00:25 VBG Base Excess 2.0 mEq/L 01/01/22 00:25 Oxygen Given 5L 01/01/22 05:33 Sodium 136 mmol/L (136-145) 01/03/22 06:00 Potassium 4.1 mmol/L (3.5-5.1) 01/03/22 06:00 Chloride 99 mmol/L (98-107) 01/03/22 06:00 Carbon Dioxide 29 mmol/L (21-32) 01/03/22 06:00 Anion Gap 8 (3-11) 01/03/22 06:00 BUN 21 mg/dl (6-23) 01/03/22 06:00 Creatinine 0.72 mg/dl (0.6-1.2) 01/03/22 06:00 Est Cr Clr Drug Dosing 95.5 ml/min 01/03/22 06:00 Est GFR ( Amer) 112.4 ml/min 01/03/22 06:00 Est GFR (Non-Af Amer) 97.0 ml/min 01/03/22 06:00 BUN/Creatinine Ratio 29.2 (10-20) H 01/03/22 06:00 Glucose 171 mg/dl (70-99(Fasting)) H 01/03/22 06:00 POC Glucose 168 mg/dl (70-99) H 01/04/22 12:00 Estimat Average Glucose 180 mg/dl 01/01/22 05:33 Hemoglobin A1c 7.9 % (4.5-5.6) H 01/01/22 05:33 Lactate 2.4 mmol/L (0.4-2.0) H* 01/01/22 10:32 Calcium 9.5 mg/dl (8.5-10.1) 01/03/22 06:00 Magnesium 2.0 mg/dl (1.7-2.4) 01/02/22 05:38 Total Bilirubin 0.3 mg/dl (0.2-1.0) 01/01/22 Unknown AST 16 U/L (13-39) 01/01/22 Unknown ALT 18 U/L (7-52) 01/01/22 Unknown Alkaline Phosphatase 68 U/L (34-104) 01/01/22 Unknown Troponin I High Sens 5.8 pg/ml (0-14) 01/01/22 Unknown Total Protein 8.3 gm/dl (6.0-8.3) 01/01/22 Unknown Albumin 4.8 gm/dl (3.4-5.0) 01/01/22 Unknown Globulin 3.5 gm/dl (2.5-4.0) 01/01/22 Unknown Albumin/Globulin Ratio 1.4 (0.9-2) 01/01/22 Unknown Procalcitonin < 0.05 ng/ml (0-0.5) 01/01/22 Unknown TSH 0.192 uIu/ml (0.300-4.500) L 01/01/22 Unknown Free T4 1.18 ng/dl (0.61-1.60) 01/01/22 Unknown SARS-CoV-2 (PCR) NEGATIVE (Negative) 01/01/22 00:53 Influenza Type A (PCR) Negative (Neg) 01/01/22 00:53 Influenza Type B (PCR) Negative (Neg) 01/01/22 00:53 RSV (RT-PCR) Negative (Neg) 01/01/22 00:53 Impressions Chest X-Ray 01/01/22 00:03 XR chest 1V portable CLINICAL HISTORY: Dyspnea. COMPARISON STUDY: Chest radiograph and chest CT December 10, 2020. FINDINGS: Emphysema is noted. Lung volumes are normal. Lungs are clear. There is no pneumothorax or pleural effusion. Cardiac size is normal. Mediastinal contours are normal. There is no evidence for pulmonary edema. IMPRESSION: No acute cardiopulmonary findings. Emphysema. ACT 112: Negative or not required by law. Electronically signed by: Chun Garcia M.D. 01/01/2022 8:13 AM Hospital Course (1) Acute and chronic respiratory failure with hypercapnia: Acute on chronic respiratory failure with hypoxia and hypercapnia Acute COPD exacerbation Chronic oxygen dependency--2 L at bedtime Tobacco use disorder on Trelegy at baseline Possible sepsis Normal procalcitonin CXR:No acute cardiopulmonary findings. Emphysema. Continue IV Solu-Medrol, doxycycline Patient prefers nebs to be changed to inhalers (Nebs not helping as per patient) Keep oxygen saturations 88 to 92% Counseled to quit smoking Incentive spirometry, flutter valve Advised to follow-up with pulmonology upon discharge Plan to discharge on PO Prednisone tapering course 2 Step: Needs 2 L supplemental oxygen with activity Leukocytosis Likely secondary to steroids Blood cultures No growth to date No other obvious source of infection Hyperlipidemia on Statin HTN BP stable Continue Lisinopril DM II HbA1C:7.9 Continue insulin per protocol Glycemic pharmacy consulted Advised to follow-up with PCP for further adjustment of insulin while on steroids. Postsurgical Hypothyroidism Low TSH, normal free T4 Decrease levothyroxine from 125 to 112 mcg daily Will need repeat thyroid function test as outpatient in 4 to 6 weeks Pulmonary nodules Current smoker Needs follow-up as outpatient with repeat CT SHAINA on Trilogy HS DVT Px: Lovenox SQ Code Status Full code Disposition Home Total Time Total Time Spent Total Time Spent (In Minutes): 47 minutes Discharge Plan Discharge Items Patient Disposition: Home - Self-Care Reason For Visit: RESP FAILURE Discharge Diagnosis: Acute on chronic respiratory failure with hypoxia and hypercapnia Acute COPD exacerbation Activity: Per Instructions section Sexual Activity: Wait until after follow-up appointment Non-emergency contact: Primary Care Provider and Painter Apprentice Call non-emergency contact if: you have any medication questions, your symptoms worsen, your pain is concerning for you and you have a fever Follow-up/Referrals: Sam Valdovinos MD [Primary Care Provider] - (Date & Time 01/07/2022 12:20 PM Provider Sam Valdovinos MD Department Family Medicine [facility] ) Diet: Carb Consistent or DM2 and Heart Healthy Addtl Attending Provider Instructions: Follow-up with your primary care physician on 01/07/2022 12:20 PM Follow-up with your insurance claims examiner in 1-2 weeks as advised. --- Quit smoking tobacco as advised. --- Your final blood cultures are pending at the time of discharge. Follow-up with your physician for results. --- Complete the prednisone, doxycycline course as prescribed. -- Your thyroid medication dose was adjusted based on your thyroid function rhoda t. Repeat thyroid function tests (TSH, free T4) in 6 weeks and follow-up with your physician for further adjustment of levothyroxine as needed. Prednisone taper course Start taking prednisone 40 mg daily for 3 days, then take 30 mg daily for 3 days, then take 20 mg daily for 3 days, then take 10 mg daily for 3 days and stop. Seek immediate medical attention if your symptoms reoccur or worsen Please take all medications as instructed on discharge list below. Please call if you have any questions or problems. You can reach a [facility] hospitalist on duty at [facility] 24 hours a day by calling [phone] Pending Studies at Discharge: Yes (Blood culture ) Stand-Alone Forms: My [facility], Smoking Cessation Medications and DC Order Prescriptions: New doxycycline hyclate 100 mg Capsule 100 mg PO BID Qty: 8 0RF levothyroxine [Synthroid] 112 mcg Tablet 112 mcg PO DAILYBB Qty: 30 1RF Continued cyclobenzaprine 10 mg tablet 10 mg PO UD PRN (Reason: Muscle Spasm) atorvastatin 20 mg tablet 20 mg PO QAM citalopram 20 mg tablet 20 mg PO QAM pantoprazole 40 mg tablet,delayed release (DR/EC) 40 mg PO QAM lisinopril 10 mg tablet 10 mg PO QAM montelukast 10 mg tablet 10 mg PO HS albuterol sulfate [Ventolin HFA] 90 mcg/actuation HFA aerosol inhaler 2 puff Inhalation Q4H PRN (Reason: Wheezing) Label Comments: haven't used for awhile fenofibrate 160 mg tablet 160 mg PO QAM Rx Instructions: TAKE WITH FOOD (DME) pen needle, diabetic [Pen Needle] 32 gauge x 5/32" needle See Dose Instructions .ROUTE .MEDSUPPLY Qty: 100 1RF Dose Instruction: As directed Rx Instructions: As directed ipratropium-albuterol 0.5 mg-3 mg(2.5 mg base)/3 mL Solution For Nebulization 3 ml INHALATION UD PRN (Reason: copd/asthma) levocetirizine [Xyzal] 5 mg Tablet 5 mg PO HS roflumilast [Daliresp] 500 mcg Tablet 500 mcg PO QAM Trelegy Ellipta 100-62.5-25 mcg Blister With Device 1 inh INHALATION DAILY bupropion HCl 150 mg Tablet Extended Release 24 Hr 150 mg PO BID insulin glargine [Lantus Solostar U-100 Insulin] 100 unit/mL (3 mL) insulin pen 15 units SC QPM Jardiance 25 mg tablet 25 mg PO QAM Changed prednisone 10 mg tablet 10 mg PO UD Qty: 30 0RF Rx Instructions: Take prednisone 40mg daily for 3 days, then 30mg daily for 3 days, then 20mg daily for 3 days, then 10mg daily for 3 days and stop. Discontinued levothyroxine 125 mcg Tablet 125 mcg PO QAM Discharge Orders: Discharge Order (Routine); Ordered 01/04/22 Ordered By: Ramsey Brown/Other Patient Handouts: High Blood Sugar (Hyperglycemia), Managing Type 2 Diabetes, Diabetes: Sick-Day Plan Admission Data Admit Date/Time: 01/01/22 01:42 Attending Provider: Ramsey Walker Admit Provider: Harshal Lucia Primary Care Provider: Sam Valdovinos Other Providers: Harshal Lucia Other Interventions: Discharge Summary Assessment (RN) Last Done: 01/04/22 12:24
== END 2022-01-04 13:44 | disposition home or self-care (01) | DRG 189 ==
LOC: ED 23:48 → 2N 01-01 01:42